=== PATIENT | female | born 1945 | race Caucasian/White ===

== ENCOUNTER 2016-10-05 21:25 | Inpatient (IN) | payer MEDICARE, MEDICAID ==
[~2016-10-05] VITALS: Ht 165.1 cm; Wt 126.2 kg
[~2016-10-05 21:25] MED LIST: AC325T PO; ACET325T38 PO; ALBU2.5V4 INH; ALBU8.5H2 IH; ALBU8.5H2 INH; AMLO1CAP2 PO; AMMO226L2 TP; ASCO500T20 PO; ASPI-586 PO; ASPI-86 PO; ASPI-892 PO; AZIT250T5 PO; BACL20TA PO; BCL10T PO; BENZ100C23 PO; BIOTIN PO; CEFD300C3 PO; CLCX200C PO; CLOB15CR3 TP; CLON0.5T3 PO; CLOT10PO TP; CRAN450T9 PO; CYCL1DRO OU; DIPH1TAB45 PO; DIPH25TA82 PO; ESOMEPRAZOLE PO; EYEL15SP TP; FERR-57 PO; FEXO-45 PO; FEXO180T PO; FLC100T1 PO; FLT05NA16; FLUC200T PO; FOLI0.8T PO; FOLI1TAB24 PO; FURO20TA PO; FURO40TA4 PO; HYDR-3812 PO; HYDR-3820 PO; HYDR-757 PO; HYOS0.3710 PO; LAC HYDRIN TP; LACT1CAP8 PO; LEVO100T PO; LEVO100T7 PO; LEVO125T6 PO; LEVO150T PO; LEVO150T6 PO; LEVO200T6 PO; LEVO750T6 PO; MAGN400T6 PO; MECL25TA56 PO; MERO1VIA3 IV; MESA1.2T PO; MESA10002 RC; METH1TAB21 PO; MICO10PO TOP; MICO142C TOP; MINE120C TP; MINE120C3 TP; MULT-24 PO; MULT-974 PO; NF-ESOM40C PO; NFBIOT1000 PO; NITR100C3 PO; NYST15CR3 TP; NYST1POW22 TOP; ONDN4T PO; OXYB10TA PO; POTA-51 PO; POTA8CAP9 PO; PRAV20TA PO; PREG200C PO; RISP0.5T2 PO; RSP.25T PO; RT-ALBUINH IH; SULF1TAB35 PO; SULF1TAB38 PO; TIZA2CAP PO; TOLN113. TP; TORS20TA2 PO; TR025C15 TP; TRIA15CR TOP; VENL37.56 PO; VENL75CA93 PO; VENL75TA2 PO; ZINC28PA TP; [UNRECOGNIZED DRUG - CODE] IV; [UNRECOGNIZED DRUG - CODE] IV; [UNRECOGNIZED DRUG - OTHER] IV
--- OUTSIDE RECORDS SUMMARY | 2016-10-05 21:30 | XMS REPORT | Continuity of Care Document ---
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 If you do not see the information that you expected, contact Release of Information in the Health Information Management department at [phone] for further assistance in locating additional records.[facility] Active Allergies and Adverse Reactions Allergen Noted [...]
[2016-10-05 22:13] LABS: BASOPHILS # (AUTO) 0.1 10^3/uL (0.0-0.1); BASOPHILS % (AUTO) 0 % (0-10); EOSINOPHILS # (AUTO) 0.1 10^3/uL (0.0-0.3); EOSINOPHILS % (AUTO) 0 % (0-10); LYMPHOCYTES # (AUTO) 1.3 X 10^3 (1.0-4.0); LYMPHOCYTES % (AUTO) 4 % (12-44); MEAN CORPUSCULAR HEMOGLOBIN 24 PG (25-34); MEAN CORPUSCULAR HGB CONC 32 G/DL (32-36); MEAN CORPUSCULAR VOLUME 75 FL (80-99); MEAN PLATELET VOLUME 11.4 FL (7.4-10.4); MONOCYTES # (AUTO) 1.6 X 10^3 (0.0-1.0); MONOCYTES % (AUTO) 5 % (0-12); NEUTROPHILS % (AUTO) 91 % (42-75); PLATELET COUNT 243 10^3/uL (130-400); RED BLOOD COUNT 4.07 10^6/uL (4.35-5.85); RED CELL DISTRIBUTION WIDTH 16.6 % (10.0-14.5)
[2016-10-05 22:18] LABS: WHITE BLOOD COUNT 34.1 10^3/uL (4.3-11.0)
[2016-10-05 22:19] LABS: INR 1.2 (0.8-1.4); PROTHROMBIN TIME PATIENT 14.4 SEC (12.2-14.7)
[2016-10-05] MEDS ORDERED: SODIUM CHLORIDE (ADD-VANTAGE) 250 ML ONE (22:25)
[2016-10-05] MEDS ORDERED: VANCOMYCIN 1 GM ADD-VANTAGE VIAL IV ONE (22:25)
[2016-10-05 22:28] LABS: ALBUMIN 4.1 G/DL (3.2-4.5); BILIRUBIN,TOTAL 0.4 MG/DL (0.1-1.0); CALCIUM 8.7 MG/DL (8.5-10.1); CREATININE SERUM 1.72 MG/DL (0.60-1.30); TOTAL PROTEIN 7.4 G/DL (6.4-8.2); hs C REACTIVE PROTEIN 13.75 MG/DL (0.00-0.50)
[2016-10-05] MEDS ORDERED: VANCOMYCIN IV ADD-VANTAGE 1,000 MG in SODIUM CHLORIDE (ADD-VANTAGE) 250 ML IV ONE ×4 (22:30)
[2016-10-05 22:31] LABS: POTASSIUM 5.6 MMOL/L (3.6-5.0)
[2016-10-05 22:38] LABS: BAND NEUTROPHILS 12 %; BASOPHILS % (MANUAL) 0 %; EOSINOPHILS % (MANUAL) 0 %; LYMPHOCYTES % (MANUAL) 5 %; MICROCYTOSIS SLIGHT; NEUTROPHILS % (MANUAL) 79 %
[2016-10-05] MEDS ORDERED: NS IV 1000 ML 1,000 ML IV ONE (22:42)
[2016-10-05] MEDS ORDERED: fentaNYL INJECTION 100 MCG/2 ML AMP IVP ONE (22:45)
[2016-10-05 23:50] LABS: BILIRUBIN,URINE NEGATIVE (NEGATIVE); KETONES,URINE NEGATIVE (NEGATIVE); LEUKOCYTE ESTERASE ,URINE 3+ (NEGATIVE); NITRITE,URINE NEGATIVE (NEGATIVE); PH,URINE 5 (5-9); PROTEIN,URINE 3+ (NEGATIVE); UROBILINOGEN,URINE NORMAL (NORMAL)
[2016-10-05 23:57] LABS: SQUAMOUS EPITHELIAL CELL,UR 0-2 /HPF; WBC,URINE TNTC /HPF
[2016-10-06] VITALS (23 sets, daily range): BP systolic 69–148; BP diastolic 32–81
[2016-10-06] MEDS ORDERED: NS IV 1000 ML 1,000 ML IV ONE (00:42)
--- NOTE | 2016-10-06 00:42 | ED General ---
General Chief Complaint: Skin/Wound Problems Stated Complaint: R LEG SWELLING Nursing Triage Note: [facility] by ems for redness, bruising, heat, and pain oted to r hip and leg. Pt reports the redness she noticed aout 5 days ago. pt denies any recent injury to r leg. Nursing Sepsis Screen: Possible Sepsis Risk Source of Information: Patient, EMS, Residential Records, Old Records History of Present Illness Time Seen by Provider: 21:40 Initial Comments This 70-year-old woman presents to the emergency room from the care home via EMS with complaints of abdominal pain, hot erythematous right thigh, and mild disorientation for about 5 days. Patient has a history of urinary tract infections and lower extremity cellulitis with multiple admissions. 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 She has mild fever of 100. Recent urine culture grew Enterococcus faecalis. Allergies and Home Medications Allergies Coded Allergies: Penicillins (Verified Allergy, Unknown, PT HAS RECEIVED ROCEPHIN & MEROPENEM W/O ISSUE, 10/05/16) butorphanol tartrate (Verified Allergy, Unknown, 10/05/16) ciprofloxacin (Verified Allergy, Unknown, 10/05/16) ciprofloxacin HCl (Verified Allergy, Unknown, 10/05/16) hydromorphone HCl (Verified Allergy, Unknown, 10/05/16) meperidine HCl (Verified Allergy, Unknown, 10/05/16) morphine (Verified Allergy, Unknown, 10/05/16) tetracycline (Verified Allergy, Unknown, 10/05/16) Home Medications Acetaminophen 325 Mg Tablet 650 MG PO Q4H PRN PRN PAIN (Reported) TAKES 2 (325MG) TABLETS Albuterol Sulfate 2.5 Mg/3 Ml Vial.neb 7Days 2.5 MG INH RTTID Prescribed by: KESHA TOTH on 07/05/16 0944 Amlodipine Besylate/Benazepril 1 Each Capsule 1 CAP PO DAILY@1800 (Reported) HOLD IF SYSTOLIC BP <90 OR PULSE <60 Ammonium Lactate 226 Gm Lotion TP DAILY (Reported) APPLY TO HANDS Ascorbic Acid 500 Mg Tablet 500 MG PO BID (Reported) Aspirin 81 Mg Tablet.dr 81 MG PO DAILY (Reported) Baclofen 10 Mg Tab 10 MG PO TID (Reported) Benzonatate 100 Mg Capsule 100 MG PO Q6H PRN PRN COUGH (Reported) Clotrimazole 10 Gm Powder TP DAILY (Reported) APPLY BETWEEN TOES Cranberry Fruit 450 Mg Tablet 450 MG PO DAILY (Reported) Cyclosporine 32 Ea [place] 1 DROP OU BID (Reported) Esomeprazole Magnesium 40 Mg Cap 40 MG PO BID (Reported) Fexofenadine HCl 60 Mg Tablet 60 MG PO DAILY (Reported) Fluticasone Propionate 16 Gm [place] 2 SPRAYS NA DAILY (Reported) Folic Acid 1 Mg Tablet 1 MG PO DAILY (Reported) Furosemide 40 Mg Tablet 40 MG PO DAILY (Reported) Hydrocodone/Acetaminophen 1 Each Tablet #30 1 TAB PO Q8H PRN PRN PAIN Prescribed by: KESHA TOTH on 07/05/16 0944 Lactobacillus Acidophilus 1 Each Capsule 1 CAP PO DAILY (Reported) Levothyroxine Sodium 150 Mcg Tablet 150 MCG PO DAILY@0500 (Reported) Magnesium Oxide 400 Mg Tablet 400 MG PO DAILY (Reported) Mesalamine 1.2 Gm Tablet.dr 1.2 GM PO DAILY (Reported) Mesalamine 1,000 Mg Supp.rect 1 SUPP RC BID (Reported) Miconazole Nitrate 10 Gm Powder TOP PRN PRN PRN CANDIDIASIS OF SKIN AND NAILS ( Reported) APPLY TO GROIN AND PERINEAL AREA Mineral Oil/Petrolatum,White 120 Gm Cream..g. TP PRN PRN PRN RASH (Reported) Multivits,Stress Formula/Zinc 1 Each Tablet 1 TAB PO DAILY (Reported) Ondansetron HCl 4 Mg Tab 4 MG PO PRN PRN PRN NAUSEA (Reported) Potassium Chloride 20 Meq Tablet.er 20 MEQ PO BID (Reported) Pravastatin Sodium 20 Mg Tablet 20 MG PO DAILY (Reported) Pregabalin 200 Mg Capsule 200 MG PO TID (Reported) Venlafaxine HCl 75 Mg Cap.er.24h 75 MG PO DAILY (Reported) Zinc Oxide 28 Gm Oint TP TID (Reported) APPLY TO COCCYX Constitutional: see HPI EENTM: no symptoms reported Respiratory: no symptoms reported Cardiovascular: no symptoms reported Gastrointestinal: see HPI Genitourinary: other (suprapubic catheter) : No Musculoskeletal: no symptoms reported Skin: no symptoms reported Psychiatric/Neurological: See HPI Hematologic/Lymphatic: No Symptoms Reported Past Nmamutl-Hilgpo-Mhgydz Hx Patient Social History Alcohol Use: Denies Use Recreational Drug Use: No Smoking Status: Never a Smoker Recent Foreign Travel: No Contact w/Someone Who Travel: No Recent Infectious Disease Expo: No Recent Hopitalizations: No Physical Abuse Screen: No Sexual Abuse: No Immunizations Up To Date Tetanus Booster (TDap): Unknown PED Vaccines UTD: No Date of Pneumonia Vaccine: Dec 09, 2011 Date of Influenza Vaccine: Aug 10, 2015 Surgeries HX Surgeries: Yes (COLOSTOMY;SUPRAPUBIC CATHETER) Surgeries: Abdominal, Bladder Surgery, Bowel Surgery Respiratory Hx Respiratory Disorders: Yes Respiratory Disorders: COPD Cardiovascular Hx Cardiac Disorders: Yes Cardiac Disorders: Chronic Edema/Swelling, High Cholesterol, Hypertension Neurological Hx Neurological Disorders: Yes (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 Physical Exam-Suspected Sepsis Physical Exam Vital Signs Vital Sign - Last 12Hours 10/05/16 10/05/16 21:25 23:10 Temp 100.0 Pulse 95 Resp 22 B/P 192/56 Pulse Ox 95 O2 Delivery Room Air O2 Flow Rate 2 Capillary Refill : Less Than 3 Seconds Blood Pressure Mean: 119 General Appearance: WD/WN Mild Distress Obese HEENT: PERRL/EOMI Normal ENT Inspection Pharynx Normal Neck: Normal Inspection Respiratory: Lungs Clear Normal Breath Sounds No Accessory Muscle Use No Respiratory Distress Cardiovascular: Regular Rate, Rhythm No Edema No Murmur Gastrointestinal: Normal Bowel Sounds Other (pulse ox is present. Abdomen feels firm. Tenderness to the lower abdomen. Suprapubic catheter intact.) Back: Normal Inspection Extremity: Other (marketed erythema, heat, and ecchymosis to the right lower extremity extending from the mid anterior martinez through the right lateral thigh.) Neurologic/Psychiatric: Alert Oriented x3 kindergartner II-XII Norm as Tested Motor Weakness (chronic weakness of the lower extremities) Skin: warm/dry ecchymosis other (erythema as above) Progress/Results/Core Measures Suspected Sepsis Recent Fever Within 48 Hours: Yes Infection Criteria Present: Suspected New Infection New/Unexplained Altered Menta: No Sepsis Screen: Possible Sepsis Risk Sepsis Diagnosis: SIRS Temperature:100.0 Pulse: 98 Respiratory Rate: 18 Laboratory Tests 10/05/16 21:40: White Blood Count 34.1*H Blood Pressure 152 /103 Mean: 119 Laboratory Tests 10/05/16 21:40: Creatinine 1.72H, INR Comment 1.2, Platelet Count 243, Total Bilirubin 0.4 Results/Orders Lab Results Laboratory Tests Test 10/05/16 21:40 10/05/16 23:43 Range/Units Activated Partial Thromboplast Time 61 H 24-35 SEC Alanine Aminotransferase (ALT/SGPT) 21 0-55 U/L Albumin 4.1 3.2-4.5 G/DL Alkaline Phosphatase 131 40-136 U/L Anion Gap 13 5-14 MMOL/L Aspartate Amino Transf (AST/SGOT) 25 5-34 U/L BUN/Creatinine Ratio 23 Band Neutrophils 12 % Basophils # (Auto) 0.1 0.0-0.1 10^3/uL Basophils % (Manual) 0 % Basophils (%) (Auto) 0 0-10 % Blood Urea Nitrogen 39 H 7-18 MG/DL C-Reactive Protein High Sensitivity 13.75 H 0.00-0.50 MG/DL Calcium Level 8.7 8.5-10.1 MG/DL Carbon Dioxide Level 20 L 21-32 MMOL/L Chloride Level 100 98-107 MMOL/L Creatinine 1.72 H 0.60-1.30 MG/DL Eosinophils # (Auto) 0.1 0.0-0.3 10^3/uL Eosinophils % (Manual) 0 % Eosinophils (%) (Auto) 0 0-10 % Estimat Glomerular Filtration Rate 29 Glucose Level 139 H 70-105 MG/DL Hematocrit 31 L 35-52 % Hemoglobin 9.7 L 11.5-16.0 G/DL INR Comment 1.2 0.8-1.4 Lactic Acid Level 1.5 0.5-2.0 MMOL/L Lymphocytes # (Auto) 1.3 1.0-4.0 X 10^3 Lymphocytes % (Manual) 5 % Lymphocytes (%) (Auto) 4 L 12-44 % Mean Corpuscular Hemoglobin 24 L 25-34 PG Mean Corpuscular Hemoglobin Concent 32 32-36 G/DL Mean Corpuscular Volume 75 L 80-99 FL Mean Platelet Volume 11.4 H 7.4-10.4 FL Microcytosis SLIGHT Monocytes # (Auto) 1.6 H 0.0-1.0 X 10^3 Monocytes % (Manual) 4 % Monocytes (%) (Auto) 5 0-12 % Neutrophils # (Auto) 31.0 H 1.8-7.8 X 10^3 Neutrophils % (Manual) 79 % Neutrophils (%) (Auto) 91 H 42-75 % Platelet Count 243 130-400 10^3/uL Potassium Level 5.6 H 3.6-5.0 MMOL/L Prothrombin Time 14.4 12.2-14.7 SEC Red Blood Count 4.07 L 4.35-5.85 10^6/uL Red Cell Distribution Width 16.6 H 10.0-14.5 % Sodium Level 133 L 135-145 MMOL/L Total Bilirubin 0.4 0.1-1.0 MG/DL Total Protein 7.4 6.4-8.2 G/DL White Blood Count 34.1 *H 4.3-11.0 10^3/uL Urine Bacteria LARGE H /HPF Urine Bilirubin NEGATIVE NEGATIVE Urine Casts NONE /LPF Urine Clarity VERY CLOUDY H Urine Color YELLOW Urine Crystals NONE /LPF Urine Culture Indicated YES Urine Glucose (UA) NEGATIVE NEGATIVE Urine Ketones NEGATIVE NEGATIVE Urine Leukocyte Esterase 3+ H NEGATIVE Urine Mucus MODERATE H /LPF Urine Nitrite NEGATIVE NEGATIVE Urine Protein 3+ H NEGATIVE Urine RBC 50-100 H /HPF Urine RBC (Auto) 5+ H NEGATIVE Urine Specific [place] 1.020 1.016-1.022 Urine Squamous Epithelial Cells 0-2 /HPF Urine Urobilinogen NORMAL NORMAL MG/DL Urine WBC TNTC H /HPF Urine pH 5 5-9 My Orders Orders-MADHAV EDWARDS MD Cbc With Automated Diff (10/05/16 22:04) Comprehensive Metabolic Panel (10/05/16 22:04) Lactic Acid Analyzer (10/05/16 22:04) Blood Culture (10/05/16 22:04) Sputum Culture (10/05/16 22:04) Ua Culture If Indicated (10/05/16 22:04) Protime With Inr (10/05/16 22:04) Partial Thromboplastin Time (10/05/16 22:04) Chest 1 View, Ap/Pa Only (10/05/16 22:04) O2 (10/05/16 22:04) Saline Lock/Iv-Start (10/05/16 22:04) Saline Lock/Iv-Start (10/05/16 22:04) Vital Signs Adult Sepsis Patie Q1HR (10/05/16 22:04) Hs C Reactive Protein (10/05/16 22:04) Manual Differential (10/05/16 21:40) Vancomycin Iv Add-[place] (Vancomycin Iv (10/05/16 22:30) Vancomycin Iv Add-[place] (Vancomycin Iv (10/05/16 22:30) Vancomycin Iv Add-[place] (Vancomycin Iv (10/05/16 22:25) Sodium Chloride (Add-[place]) (Ns (Add-V (10/05/16 22:25) Ns Iv 1000 Ml (Sodium Chloride 0.9%) (10/05/16 22:42) Ct Chest/Abdomen/Pelvis Wo (10/05/16 22:43) Fentanyl Injection (Sublimaze Injection (10/05/16 22:45) Urine Culture (10/05/16 23:43) Ns Iv 1000 Ml (Sodium Chloride 0.9%) (10/06/16 00:42) Medications Given in ED Current Medications Medications Dose Ordered Sig/Briana Route Start Time Stop Time Status Last Admin Dose Admin Fentanyl Citrate 25 mcg ONCE ONCE IVP 10/05/16 22:45 10/05/16 22:46 DC 10/05/16 22:59 25 MCG Sodium Chloride 1,000 ml @ 0 mls/hr Q0M ONCE IV 10/05/16 22:42 10/05/16 22:43 DC 10/05/16 22:46 0 MLS/HR Vancomycin HCl 1000 mg/Sodium Chloride 250 ml @ 250 mls/hr ONCE ONCE IV 10/05/16 22:30 10/05/16 23:29 DC 10/05/16 22:37 250 MLS/HR Vital Signs/I&O Vital Sign - Last 12Hours 10/05/16 10/05/16 10/05/16 10/05/16 21:25 21:43 21:45 22:15 Temp 100.0 100.0 100.0 100.0 Pulse 95 98 99 97 Resp 18 22 22 B/P 192/56 152/103 124/81 144/100 Pulse Ox 95 95 95 95 O2 Delivery Room Air Room Air Room Air Room Air 10/05/16 10/05/16 10/05/16 10/05/16 22:45 23:10 23:15 23:45 Temp 100.0 100.0 100.0 Pulse 95 99 99 Resp 16 B/P 111/77 111/77 106/98 Pulse Ox 89 95 94 90 O2 Delivery Room Air Nasal Cannula Nasal Cannula Nasal Cannula O2 Flow Rate 2 2 2 10/06/16 10/06/16 10/06/16 10/06/16 00:15 00:45 01:24 01:30 Temp 100.0 100.0 100.0 102.3 Pulse 106 109 108 103 Resp B/P 105/88 130/44 148/73 Pulse Ox 98 98 99 98 O2 Delivery Nasal Cannula Nasal Cannula Nasal Cannula O2 Flow Rate 2 2 2 2.00 10/06/16 10/06/16 10/06/16 10/06/16 02:00 02:00 02:00 02:00 Pulse 98 98 Resp 11 B/P 116/64 Pulse Ox 99 98 99 O2 Delivery Nasal Cannula Nasal Cannula O2 Flow Rate 2.00 2.00 10/06/16 10/06/16 02:30 03:00 Pulse 94 Resp 13 B/P 100/71 Pulse Ox 96 O2 Delivery Nasal Cannula Nasal Cannula O2 Flow Rate 2.00 2.00 Capillary Refill : Less Than 3 Seconds Blood Pressure Mean: 119 Progress Note : Progress Note Patient received fentanyl for treatment of her pain. She was found to have multiple possible sources of infection and sepsis including urinary tract infection, cellulitis of the right lower extremity, and right lower lobe pneumonia. Antibiotic therapy was initiated with vancomycin. Broad-spectrum antibiotic coverage selection had to be altered due to allergies. Clindamycin was added for possible aspiration pneumonia. Cefepime was admitted for further coverage of cellulitis, pneumonia and UTI. She received 2 liters of IV fluids. Diagnostic Imaging Diagonstic Imaging: Xray Plain Films/CT/US/NM/MRI: chest Comments Chest x-ray viewed by me. Report not available. Exam is obscured by body habitus. There is questionable lower lung infiltrates. Diagonstic Imaging: CT Plain Films/CT/US/NM/MRI: abdomen, pelvis Comments CT abdomen and pelvis viewed by me and CT report reviewed. No acute abnormalities found to explain her pain. Departure Communication Time/Spoke to Admitting Phy: 00:30 Impression Impression: Primary Impression: Sepsis Qualified Code: A41.9 - Sepsis, unspecified organism Additional Impressions: Right lower lobe pneumonia Qualified Code: J69.0 - Pneumonitis due to inhalation of food and vomit Urinary tract infection Qualified Code: N39.0 - Urinary tract infection, site not specified Cellulitis of right leg Abdominal pain Qualified Code: R10.9 - Unspecified abdominal pain Acute renal failure Qualified Code: N17.9 - Acute kidney failure, unspecified Hyperkalemia Disposition: 01 HOME, SELF-CARE Condition: Improved Decision to Admit Reason: Admit from ER (General) Decision to Admit/Date: Oct 06, 2016 Departure-Patient Inst. Referrals: NO,LOCAL PHYSICIAN (PCP/Family) Primary Care Physician MADHAV EDWARDS MD Oct 06, 2016 00:41
[2016-10-06] MEDS ORDERED: NORMAL SALINE (BAXTER MINI) 100 ML IV ONE ×5 (01:46→23:59)
[2016-10-06] MEDS ORDERED: MEROPENEM 500 MG VIAL (MERREM) IV ONE ×5 (01:46→23:58)
[2016-10-06] MEDS: NS IV 1000 ML 1,000 ML IV SCH ×5 (01:47→22:33)
[2016-10-06] MEDS: MEROPENEM 500 MG in NORMAL SALINE (BAXTER MINI) 100 ML IV SCH ×4 (01:54→17:13)
[2016-10-06] MEDS: CLINDAMYCIN 900 MG/50 ML IVPB 50 ML IV SCH ×4 (01:54→22:32)
[2016-10-06] MEDS ORDERED: ACETAMINOPHEN 325 MG TABLET/CAPLET (TYLENOL) ONE (03:38)
[2016-10-06] MEDS ORDERED: ACETAMINOPHEN 500 MG TAB (TYLENOL) PO PRN (04:00)
[2016-10-06] MEDS ORDERED: HYDROcodone/APAP 10 MG/325 MG (LORTAB) TAB PO ONE (04:00)
[2016-10-06] MEDS ORDERED: ACETAMINOPHEN 500 MG TAB (TYLENOL) PO ONE (04:00)
[2016-10-06] MEDS ORDERED: HYDROcodone/APAP 10 MG/325 MG (LORTAB) TAB PO PRN (04:00)
[2016-10-06] MEDS ORDERED: HYDROcodone/APAP 5 MG/325 MG (LORTAB) TAB PO PRN ×2 (04:15→04:30)
[2016-10-06] MEDS ORDERED: fentaNYL INJECTION 100 MCG/2 ML AMP IV PRN (04:15)
[2016-10-06] MEDS ORDERED: fentaNYL INJECTION 100 MCG/2 ML AMP IVP PRN (04:30)
[2016-10-06] MEDS ORDERED: HYDROcodone/APAP 5 MG/325 MG (LORTAB) TAB PO ONE (04:30)
[2016-10-06 04:40] LABS: BASOPHILS # (AUTO) 0.1 10^3/uL (0.0-0.1); BASOPHILS % (AUTO) 0 % (0-10); EOSINOPHILS % (AUTO) 0 % (0-10); LYMPHOCYTES # (AUTO) 1.3 X 10^3 (1.0-4.0); LYMPHOCYTES % (AUTO) 4 % (12-44); MEAN CORPUSCULAR HEMOGLOBIN 24 PG (25-34); MEAN CORPUSCULAR HGB CONC 32 G/DL (32-36); MEAN CORPUSCULAR VOLUME 75 FL (80-99); MONOCYTES # (AUTO) 1.1 X 10^3 (0.0-1.0); MONOCYTES % (AUTO) 4 % (0-12); NEUTROPHILS # (AUTO) 28.4 X 10^3 (1.8-7.8); NEUTROPHILS % (AUTO) 92 % (42-75); PLATELET COUNT 213 10^3/uL (130-400); RED BLOOD COUNT 3.74 10^6/uL (4.35-5.85); RED CELL DISTRIBUTION WIDTH 16.5 % (10.0-14.5)
[2016-10-06 05:02] LABS: CALCIUM 8.2 MG/DL (8.5-10.1); CREATININE SERUM 1.59 MG/DL (0.60-1.30); MAGNESIUM 1.8 MG/DL (1.8-2.4); PHOSPHORUS 3.8 MG/DL (2.3-4.7)
[2016-10-06 05:04] LABS: POTASSIUM 5.6 MMOL/L (3.6-5.0)
[2016-10-06 05:35] LABS: WHITE BLOOD COUNT 30.8 10^3/uL (4.3-11.0)
[2016-10-06] MEDS: NS IV 500 ML 500 ML IV SCH ×17 (05:58→23:43)
--- NOTE | 2016-10-06 06:32 | Pulmonary Consultation ---
History of Present Illness History of Present Illness Date of Consultation 10/06/16 06:23 Date of Admission History of Present Illness 70yo with hx of paralysis from CVA, and multiple hospitalizations secondary to cellulitis and UTIs presented via EMS secondary to abdominal pain, worsening cellulitis, and confusion. Pt is on Merrem, vanco, and clindamycin. She became more hypotensive after receiving [place]. Pt has had a total of 3500 of IVF. UO has been 90 cc/hr. I am consulted for ICU management. Allergies and Home Medications Allergies Coded Allergies: Penicillins (Verified Allergy, Unknown, PT HAS RECEIVED ROCEPHIN & MEROPENEM W/O ISSUE, 10/05/16) butorphanol tartrate (Verified Allergy, Unknown, 10/05/16) ciprofloxacin (Verified Allergy, Unknown, 10/05/16) ciprofloxacin HCl (Verified Allergy, Unknown, 10/05/16) hydromorphone HCl (Verified Allergy, Unknown, 10/05/16) meperidine HCl (Verified Allergy, Unknown, 10/05/16) morphine (Verified Allergy, Unknown, 10/05/16) tetracycline (Verified Allergy, Unknown, 10/05/16) Home Medications Acetaminophen 325 Mg Tablet 650 MG PO Q4H PRN PRN PAIN (Reported) TAKES 2 (325MG) TABLETS Amlodipine Besylate/Benazepril 1 Each Capsule 1 CAP PO 1800 (Reported) HOLD IF SYSTOLIC BP <90 OR PULSE <60 Aspirin 81 Mg Tablet.dr 81 MG PO DAILY (Reported) Baclofen 10 Mg Tab 10 MG PO TID (Reported) Benzonatate 100 Mg Capsule 100 MG PO Q6H PRN PRN COUGH (Reported) Cranberry Fruit 450 Mg Tablet 450 MG PO DAILY (Reported) Cyclosporine 1 Each Droperette 1 DROP OU BID (Reported) Esomeprazole Magnesium 40 Mg Cap 40 MG PO BID (Reported) Fexofenadine HCl 60 Mg Tablet 60 MG PO DAILY (Reported) Fluconazole 150 Mg Tablet 150 MG PO Fr (Reported) 4 WEEK SUPPLY START DATE 10-01-16 END DATE 10-29-16 Furosemide 40 Mg Tablet 40 MG PO DAILY (Reported) Hydrocodone/Acetaminophen 1 Each Tablet 1 TAB PO Q8H PRN PRN PAIN (Reported) Ketoconazole 15 Gm Cream..g. 21Days TP BID (Reported) START DATE 09-30-16 END DATE 10-21-16 Lactobacillus Acidophilus 1 Each Capsule 1 CAP PO DAILY (Reported) Levothyroxine Sodium 150 Mcg Tablet 150 MCG PO 0500 (Reported) Magnesium Oxide 400 Mg Tablet 400 MG PO DAILY (Reported) Mesalamine 1.2 Gm Tablet.dr 1.2 GM PO DAILY (Reported) Mesalamine 1,000 Mg Supp.rect 1 SUPP RC BID (Reported) Miconazole Nitrate 10 Gm Powder TOP PRN PRN PRN CANDIDIASIS OF SKIN AND NAILS ( Reported) APPLY TO GROIN AND PERINEAL AREA Mineral Oil/Petrolatum,White 120 Gm Cream..g. TP PRN PRN PRN RASH (Reported) Multivits,Stress Formula/Zinc 1 Each Tablet 1 TAB PO DAILY (Reported) Ondansetron HCl 4 Mg Tab 4 MG PO PRN PRN PRN NAUSEA (Reported) Potassium Chloride 20 Meq Tablet.er 20 MEQ PO DAILY (Reported) Pravastatin Sodium 20 Mg Tablet 20 MG PO DAILY (Reported) Pregabalin 200 Mg Capsule 200 MG PO TID (Reported) Venlafaxine HCl 75 Mg Cap.er.24h 75 MG PO DAILY (Reported) Zinc Oxide 28 Gm Oint TP TID (Reported) APPLY TO COCCYX Past Zekayvi-Eakcso-Uwrtqb Hx Patient Social History Alcohol Use: Denies Use Recreational Drug Use: No Smoking Status: Never a Smoker Recent Foreign Travel: No Contact w/Someone Who Travel: No Recent Infectious Disease Expo: No Recent Hopitalizations: No Physical Abuse Screen: No Sexual Abuse: No Immunizations Up To Date Tetanus Booster (TDap): Unknown PED Vaccines UTD: No Date of Pneumonia Vaccine: Dec 09, 2011 Date of Influenza Vaccine: Aug 10, 2015 Seasonal Allergies Seasonal Allergies: No Surgeries HX Surgeries: Yes (COLOSTOMY;SUPRAPUBIC CATHETER) Surgeries: Abdominal, Bladder Surgery, Bowel Surgery Respiratory Hx Respiratory Disorders: Yes Respiratory Disorders: Asthma, Pneumonia, COPD Cardiovascular Hx Cardiac Disorders: Yes Cardiac Disorders: Chronic Edema/Swelling, High Cholesterol, Hypertension Neurological Hx Neurological Disorders: Yes (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"- GENERALIZED WEAKNESS) Endocrine Hx Endocrine Disorders: Yes (MYXEDEMA COMA) Endocrine Disorders: Hypothyroidsim HEENT HX ENT Disorders: No Loss of Vision: Denies Hearing Impairment: Denies Cancer Hx Cancer: Yes Cancer: Breast Psychosocial Hx Psychiatric Problems: Yes (PSYCHOSIS) Behavioral Health Disorders: Depression Integumentary HX Skin/Integumentary Disorder: Yes (athletes foot bilat feet) Skin/Integumentary Disorders: Recent Skin Changes Blood Transfusions Hx Blood Disorders: Yes (ANEMIA) Adverse Reaction to a Blood Tr: No Family Medical History Family Medial History: Patient reports no known family medical history. Review of Systems Constitutional: : Chills: Fever: Malaise: Sweats: Weakness Eyes: No: Conjunctivae inflammation, Eyelid inflammation, Other, Pain, Redness , Vision change ENT: No: Ear discharge, Ear pain, Mouth pain, Mouth swelling, Nose congestion, Nose discharge, Nose pain, Other, Throat pain, Throat swelling Respiratory: : Cough: Dry: SOB with excertion: Shortness of breath Cardiovascular: : Paroxysmal Noc. DyspneaNo: Chest Pain, Edema, Lt Headedness, Orthopnea, Other, Palpitations Gastrointestinal: No: Abdominal Pain, Constipation, Diarrhea, Hematochezia, Melena, Nausea, Other, Vomiting Genitourinary: No Dysuria, No Frequency, No Incontinence, No Hematuria, No Retention, No Other Musculoskeletal: : back pain: leg pain Skin: : Bruising: Lesions: Rash Neurological: : Confusion: Weakness Sepsis Event Evaluation Sepsis Stage: Sepsis Possible Source: Skin/Soft Tissue Exam Exam Vital Signs Date Time Temp Pulse Resp B/P Pulse Ox O2 Delivery O2 Flow Rate FiO2 10/06/16 06:00 90 9 85/44 93 Nasal Cannula 2.00 10/06/16 05:00 93 11 69/32 93 Nasal Cannula 2.00 10/06/16 04:50 100 Nasal Cannula 2.00 10/06/16 04:00 101.3 105 24 115/81 100 Nasal Cannula 2.00 10/06/16 03:00 94 13 100/71 96 Nasal Cannula 2.00 10/06/16 02:30 Nasal Cannula 2.00 10/06/16 02:00 99 10/06/16 02:00 98 11 116/64 98 Nasal Cannula 2.00 10/06/16 02:00 98 10/06/16 02:00 99 Nasal Cannula 2.00 10/06/16 01:30 102.3 103 22 148/73 98 Nasal Cannula 2.00 10/06/16 01:24 100.0 108 18 99 2 10/06/16 00:45 100.0 109 18 130/44 98 Nasal Cannula 2 10/06/16 00:15 100.0 106 16 105/88 98 Nasal Cannula 2 10/05/16 23:45 100.0 99 16 106/98 90 Nasal Cannula 2 10/05/16 23:15 100.0 99 16 111/77 94 Nasal Cannula 2 10/05/16 23:10 95 Nasal Cannula 2 10/05/16 22:45 100.0 95 16 111/77 89 Room Air 10/05/16 22:15 100.0 97 22 144/100 95 Room Air 10/05/16 21:45 100.0 99 22 124/81 95 Room Air 10/05/16 21:43 100.0 98 18 152/103 95 Room Air 10/05/16 21:25 100.0 95 22 192/56 95 Room Air I & O 10/06/16 07:00 Intake Total 2550 ml Output Total 480 ml Balance 2070 ml General Appearance: WD/WN Mild Distress Obese HEENT: PERRL/EOMI Normal ENT Inspection Pharynx Normal Neck: Normal Inspection Respiratory: Lungs Clear Normal Breath Sounds No Accessory Muscle Use No Respiratory Distress Cardiovascular: Regular Rate, Rhythm No Edema No Murmur Capillary Refill: Less Than 3 Seconds Extremity: Other (marketed erythema, heat, and ecchymosis to the right lower extremity extending from the mid anterior martinez through the right lateral thigh.) Neurologic/Psychiatric: Alert Oriented x3 supervisor type bar and segment II-XII Norm as Tested Motor Weakness (chronic weakness of the lower extremities) Skin: Normal Color Warm/Dry Lymphatic: No Adenopathy Results Lab Laboratory Tests 10/05/16 21:40 10/06/16 04:30 Assessment/Plan Assessment/Plan -Sepsis secondary to cellulitis and UTI -Continue merrem, vanco, and clinda for now -stanford cultures -IVF Hyperkalemia - mild -will give Kayexalate Hypotension - improved -monitor, IVF chronic renal failure -monitor -hx of paralysis s/p CVA and multiple infections -Obesity - Clinical Quality Measures DVT/VTE Risk/Contraindication: Risk Factor Score Per Nursin RFS Level Per Nursing on Admit: 4+=Very High RON BATES DO Oct 06, 2016 06:32 RFS Level Per Nursing on Admit: 4+=Very High RON BATES DO Oct 06, 2016 06:32
[2016-10-06] MEDS ORDERED: NS IV 1000 ML 1,000 ML IV SCH (06:45)
[2016-10-06] MEDS ORDERED: SOD POLYSTERENE 15 GM/60 ML (KAYEXALATE) UNIT DOSE PO NR (06:45)
--- NOTE | 2016-10-06 07:10 | Diagnostic Imaging Report ---
PROCEDURE: CT chest, abdomen, and pelvis without contrast. TECHNIQUE: Multiple contiguous axial images were obtained through the chest, abdomen, and pelvis without the use of intravenous contrast. INDICATION: Bruising and pain to right hip. Comparison with CT abdomen and pelvis from 05/23/2016. FINDINGS: CT chest without: There is mild infiltrate medial basilar segment of the right lower lobe. Lungs are otherwise clear. Heart is not enlarged. There is a Port-A-Cath present on the right with line in good position. Heart is not enlarged. No mediastinal or hilar adenopathy of pathologic size. No pleural effusions or pericardial effusion. IMPRESSION: Infiltrate medial basilar segment right lower lobe. CT abdomen and pelvis: There is a small hypodense lesion in the left lobe measuring 1.5 cm. Liver otherwise is normal. Gallbladder is normal. Bile ducts are normal. The pancreas is atrophic. Spleen is normal. Adrenal glands are not enlarged. Kidneys show no evidence of obstruction or calculi. Renal outlines are smooth. The stomach and small bowel appear normal. There is ostomy in the left lower quadrant. There is moderate amount of retained stool in the ascending and transverse colon. Aorta is calcified without evidence of aneurysm. There is no free air or free fluid. No intra-abdominal masses. Bone windows show hips to be in normal articulation with moderate degenerative changes. No fractures are demonstrated. The surrounding soft tissues along the right hip show no changes to indicate inflammatory changes or hematoma. Surgical changes are seen within the lower lumbar spine with fusion present. Suprapubic catheter is present. Bladder is decompressed. IMPRESSION: 1. No evidence of hip fractures or inflammatory changes surrounding the right hip. 2. Moderate amount of retained stool in the colon suggesting some constipation. 3. Suprapubic catheter in good position. 4. Small hypodense lesion in the left lobe of the liver likely representing cyst. Dictated by: Dictated on workstation # [id number]
[2016-10-06] MEDS ORDERED: FLU TRIvalent (5 YOA+) 2016-17 (AFLURIA) 0.5 ML IM ONE (07:30)
--- NOTE | 2016-10-06 07:37 | Diagnostic Imaging Report ---
INDICATION: Febrile. Comparison with 09/15/2016. Findings: Study is limited due to marked obesity and portable technique. No infiltrates are demonstrated. Heart is enlarged. No evidence of pulmonary edema. No pneumothorax or pleural effusion. Right central line remains unchanged in position. IMPRESSION: No acute changes noted when compared with previous exam. Dictated by: Dictated on workstation # [id number]
[2016-10-06] MEDS: RT-ALBUTEROL SULF 2.5 MG/3 ML PRE-MIX VIAL INH SCH ×3 (07:43→20:10)
[2016-10-06] MEDS ORDERED: CYCL1DRO OU (07:57)
[2016-10-06] MEDS ORDERED: HYDR-3812 PO (07:57)
[2016-10-06] MEDS ORDERED: FLUC150T2 PO (07:57)
[2016-10-06] MEDS ORDERED: KETO15CR TP (07:57)
--- NOTE | 2016-10-06 08:18 | Diagnostic Imaging Report ---
Portable upright radiograph of the chest. INDICATION: Sepsis. COMPARISON: 10/05/16. FINDINGS: There is unchanged mild infiltrate or atelectasis in the medial aspect of the right lung base. Density over the left lung base was not associated with significant infiltrate on CT scan and is likely superimposition artifact on this portable radiograph. The heart size is at the upper limits of normal. No effusion or pneumothorax. Infusion port is again seen with the tip at the proximal right atrium level. IMPRESSION: Stable mild medial right lung base infiltrate or atelectasis. Dictated by: Dictated on workstation # [id number]
[2016-10-06] MEDS ORDERED: ACETAMINOPHEN 325 MG TABLET/CAPLET (TYLENOL) PO PRN (09:30)
[2016-10-06] MEDS ORDERED: CATHETER FLUSH 10 ML SYR IV PRN (09:30)
--- NOTE | 2016-10-06 09:55 | History & Physical-Hospitalist ---
HPI History of Present Illness: HPI/Chief Complaint CC: Sepsis with fever HPI: This is a 70yoWF pt known to me from multiple admissions for sepsis due to medical issues following vertebral artery CVA with residual paralysis and suprapubic cath causing multiple UTI's and pneumonias. States she had a fever the past 3 days and increased pain right flank. Dr. Perez Review: Dr. Perez states that pt is on multiple antibiotics, and has significant cellulitis. Lactic acid is likely rising so will recheck. Pt received fluid bolus. Patient Interview: Pt was very sleepy during visit. No details obtained. Pt states that she is receiving pain medication. Physical exam was stable. Scribed by Charlie Steen under the direct supervision of Dr. Toth. Source: patient, RN/MD Date Seen 10/06/16 Attending Physician Camden Falk MD PCP No,Local Physician Referring Physician Date of Admission Oct 06, 2016 at 00:39 Home Medications & Allergies Home Medications Reviewed patient Home Medication Reconciliation Form Allergies Coded Allergies: Penicillins (Verified Allergy, Unknown, PT HAS RECEIVED ROCEPHIN & MEROPENEM W/O ISSUE, 10/05/16) butorphanol tartrate (Verified Allergy, Unknown, 10/05/16) ciprofloxacin (Verified Allergy, Unknown, 10/05/16) ciprofloxacin HCl (Verified Allergy, Unknown, 10/05/16) hydromorphone HCl (Verified Allergy, Unknown, 10/05/16) meperidine HCl (Verified Allergy, Unknown, 10/05/16) morphine (Verified Allergy, Unknown, 10/05/16) tetracycline (Verified Allergy, Unknown, 10/05/16) Past Dpkusdm-Ouoazn-Rlrjrh Hx Patient Social History Marrital Status: Employed/Student: retired Alcohol Use: Denies Use Recreational Drug Use: No Smoking Status: Never a Smoker Physical Abuse Screen: No Sexual Abuse: No Recent Foreign Travel: No Contact w/other who traveled: No Recent Hopitalizations: No Recent Infectious Disease Expo: No Immunizations Up To Date Tetanus Booster (TDap): Unknown Date of Pneumonia Vaccine: Dec 09, 2011 Date of Influenza Vaccine: Aug 10, 2015 Seasonal Allergies Seasonal Allergies: No Surgeries HX Surgeries: Yes (COLOSTOMY;SUPRAPUBIC CATHETER) Surgeries: Abdominal, Bladder Surgery, Bowel Surgery Respiratory Hx Respiratory Disorders: Yes Respiratory Disorders: Asthma, Pneumonia Cardiovascular Hx Cardiovascular Disorders: Yes Cardiac Disorders: Chronic Edema/Swelling, High Cholesterol, Hypertension Neurological Hx Neurological Disorders: Yes (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"- GENERALIZED WEAKNESS) Endocrine Hx Endocrine Disorders: Yes (MYXEDEMA COMA) Endocrine Disorders: Hypothyroidsim HEENT HX ENT Disorders: No Loss of Vision: Denies Hearing Impairment: Denies Cancer Hx Cancer: Yes Cancer: Breast Psychosocial Hx Psychiatric Problems: Yes (PSYCHOSIS) Behavioral Health Disorders: Depression Integumentary HX Skin/Integumentary Disorder: Yes (athletes foot bilat feet) Skin/Integumentary Disorders: Recent Skin Changes Blood Transfusions Hx Blood Disorders: Yes (ANEMIA) Adverse Reaction to a Blood Tr: No Family Medical History Family Hx: Patient reports no known family medical history. Review of Systems Constitutional: see HPI chills dizziness fever malaise EENTM: no symptoms reported Respiratory: cough Cardiovascular: no symptoms reported Gastrointestinal: nausea Genitourinary: decreased output Musculoskeletal: back pain Skin: no symptoms reported Psychiatric/Neurological: Depressed All Other Systems Reviewed Negative Unless Noted: Yes Physical Exam Physical Exam Vital Signs Vital Sign - Last 12Hours 10/05/16 10/05/16 21:25 23:10 Temp 100.0 Pulse 95 Resp 22 B/P 192/56 Pulse Ox 95 O2 Delivery Room Air O2 Flow Rate 2 Capillary Refill : Less Than 3 Seconds General Appearance: No Apparent Distress WD/WN Chronically ill Obese Other ( Chronically ill more declined since last seen) Eyes: Bilateral Eye Normal Inspection, Bilateral Eye PERRL HEENT: PERRL/EOMI Normal ENT Inspection Pharynx Normal Neck: Full Range of Motion Normal Inspection Non Tender Supple Carotid Bruit Respiratory: Chest Non Tender Lungs Clear Normal Breath Sounds No Accessory Muscle Use No Respiratory Distress Cardiovascular: Regular Rate, Rhythm No Edema No Gallop No JVD No Murmur Normal Peripheral Pulses Gastrointestinal: Normal Bowel Sounds No Organomegaly No Pulsatile Mass Non Tender Soft Back: Normal Inspection No CVA Tenderness No Vertebral Tenderness Extremity: Normal Capillary Refill Normal Inspection Normal Range of Motion Non Tender No Calf Tenderness No Pedal Edema Neurologic/Psychiatric: Alert Oriented x3 No Motor/Sensory Deficits Normal Mood/Affect Skin: Normal Color Warm/Dry Other (right flank erythema w/increased warmth) Lymphatic: No Adenopathy Results Results/Procedures Lab Laboratory Tests 10/05/16 21:40 10/06/16 04:30 Assessment/Plan Admission Diagnosis Assessment: Sepsis due to right flank cellulitis with leukocytosis and fever and hypotension , placed on Vanc, Radha, Clinda empirically 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
[2016-10-06] MEDS ORDERED: SODIUM CHLORIDE (ADD-VANTAGE) 250 ML ONE ×2 (11:07→22:09)
[2016-10-06] MEDS ORDERED: VANCOMYCIN 1 GM ADD-VANTAGE VIAL IV ONE ×2 (11:07→22:08)
[2016-10-06] MEDS: VANCOMYCIN 1 GM/NS 250 ML IVPB IV SCH ×4 (11:17→22:33)
[2016-10-06] MEDS: HYDROcodone/APAP 5 MG/325 MG (LORTAB) TAB PO PRN ×3 (11:23→23:01)
[2016-10-07] VITALS (23 sets, daily range): BP systolic 79–141; BP diastolic 42–66
[2016-10-07] MEDS: MEROPENEM 500 MG in NORMAL SALINE (BAXTER MINI) 100 ML IV SCH ×3 (00:07→12:35)
[2016-10-07] MEDS: NS IV 500 ML 500 ML IV SCH ×13 (00:45→12:48)
[2016-10-07] MEDS ORDERED: MEROPENEM 500 MG VIAL (MERREM) IV ONE ×3 (05:18→23:55)
[2016-10-07] MEDS ORDERED: NORMAL SALINE (BAXTER MINI) 100 ML IV ONE ×3 (05:18→23:56)
[2016-10-07] MEDS: NS IV 1000 ML 1,000 ML IV SCH ×2 (05:22→15:22)
[2016-10-07] MEDS: CLINDAMYCIN 900 MG/50 ML IVPB 50 ML IV SCH (05:27)
[2016-10-07] MEDS: HYDROcodone/APAP 5 MG/325 MG (LORTAB) TAB PO PRN ×3 (05:27→22:29)
[2016-10-07] MEDS: RT-ALBUTEROL SULF 2.5 MG/3 ML PRE-MIX VIAL INH SCH ×3 (06:26→21:00)
[2016-10-07 06:57] LABS: BASOPHILS # (AUTO) 0.1 10^3/uL (0.0-0.1); BASOPHILS % (AUTO) 0 % (0-10); EOSINOPHILS # (AUTO) 0.6 10^3/uL (0.0-0.3); EOSINOPHILS % (AUTO) 3 % (0-10); LYMPHOCYTES # (AUTO) 1.7 X 10^3 (1.0-4.0); LYMPHOCYTES % (AUTO) 9 % (12-44); MEAN CORPUSCULAR HEMOGLOBIN 23 PG (25-34); MEAN CORPUSCULAR HGB CONC 31 G/DL (32-36); MEAN CORPUSCULAR VOLUME 76 FL (80-99); MONOCYTES # (AUTO) 1.3 X 10^3 (0.0-1.0); MONOCYTES % (AUTO) 7 % (0-12); NEUTROPHILS # (AUTO) 14.5 X 10^3 (1.8-7.8); NEUTROPHILS % (AUTO) 80 % (42-75); PLATELET COUNT 155 10^3/uL (130-400); RED BLOOD COUNT 3.12 10^6/uL (4.35-5.85); RED CELL DISTRIBUTION WIDTH 16.6 % (10.0-14.5); WHITE BLOOD COUNT 18.1 10^3/uL (4.3-11.0)
[2016-10-07 07:25] LABS: CALCIUM 7.7 MG/DL (8.5-10.1); CREATININE SERUM 1.24 MG/DL (0.60-1.30); MAGNESIUM 1.6 MG/DL (1.8-2.4); PHOSPHORUS 5.1 MG/DL (2.3-4.7); POTASSIUM 4.2 MMOL/L (3.6-5.0)
--- NOTE | 2016-10-07 07:45 | Pulmonary Progress Note ---
Subjective Subjective/Events-last exam Pt appears to be improving. No complications noted. Exam Exam Vital Signs Date Time Temp Pulse Resp B/P Pulse Ox O2 Delivery O2 Flow Rate FiO2 10/07/16 06:26 95 Nasal Cannula 2.00 10/07/16 06:00 93 10 92/51 95 Nasal Cannula 2.00 10/07/16 05:00 92 15 105/50 97 Nasal Cannula 2.00 10/07/16 04:10 100 Nasal Cannula 2.00 10/07/16 04:00 99.9 86 12 96/53 100 Nasal Cannula 2.00 10/07/16 03:00 87 10 79/42 99 Nasal Cannula 2.00 10/07/16 02:00 89 11 102/53 99 Nasal Cannula 2.00 10/07/16 01:00 105 12 106/54 100 Nasal Cannula 2.00 10/07/16 01:00 101 10/07/16 00:00 100 Nasal Cannula 2.00 10/07/16 00:00 100.0 92 10 110/60 100 Nasal Cannula 2.00 10/06/16 23:00 106 17 101/52 99 Nasal Cannula 2.00 10/06/16 22:00 105 12 105/54 96 Nasal Cannula 2.00 10/06/16 21:00 114 17 94/59 96 Nasal Cannula 2.00 10/06/16 20:10 97 Nasal Cannula 2.00 10/06/16 20:00 97 Nasal Cannula 2.00 10/06/16 20:00 112 13 113/62 92 Room Air 10/06/16 19:00 112 10/06/16 19:00 101.7 113 14 103/34 93 Room Air 10/06/16 18:00 111 10 90/48 94 Nasal Cannula 2.00 10/06/16 17:00 112 16 111/38 93 Nasal Cannula 2.00 10/06/16 16:00 98 Room Air 10/06/16 16:00 98.5 10/06/16 16:00 98 9 106/47 94 Nasal Cannula 2.00 10/06/16 15:11 94 Room Air 2.00 10/06/16 15:00 98 10 102/46 91 Nasal Cannula 2.00 10/06/16 14:00 112 16 97/46 90 Nasal Cannula 2.00 10/06/16 13:00 101 10/06/16 13:00 104 12 89/54 98 Nasal Cannula 2.00 10/06/16 12:30 100 Nasal Cannula 2.00 10/06/16 12:00 105 9 106/53 100 Nasal Cannula 2.00 10/06/16 11:00 109 19 118/63 100 Nasal Cannula 2.00 10/06/16 10:00 100 11 101/59 100 Nasal Cannula 2.00 10/06/16 09:00 101 11 109/59 100 Nasal Cannula 2.00 10/06/16 08:00 88 10 102/52 100 Nasal Cannula 2.00 10/06/16 07:44 100 Nasal Cannula 2.00 I & O 10/07/16 07:00 Intake Total 6614 ml Output Total 2850 ml Balance 3764 ml General Appearance: No Apparent Distress WD/WN Obese HEENT: PERRL/EOMI Normal ENT Inspection Pharynx Normal Neck: Normal Inspection Respiratory: Lungs Clear Normal Breath Sounds No Accessory Muscle Use No Respiratory Distress Cardiovascular: Regular Rate, Rhythm No Edema No Murmur Capillary Refill: Less Than 3 Seconds Extremity: Other (marketed erythema, heat, and ecchymosis to the right lower extremity extending from the mid anterior martinez through the right lateral thigh.) Neurologic/Psychiatric: Alert Oriented x3 crm dynamics developer II-XII Norm as Tested Motor Weakness (chronic weakness of the lower extremities) Skin: Normal Color Warm/Dry Lymphatic: No Adenopathy Results Lab Laboratory Tests 10/05/16 21:40 10/06/16 04:30 10/07/16 06:50 Assessment/Plan Assessment/Plan -Sepsis secondary to cellulitis and UTI -Continue merrem, vanco, and clinda for now -stanford cultures pending -IVF Metabolic acidosis -IVF -Monitor Hyperkalemia - resolved Anemia -Will give 1 unit of PRBC -check occult stool Hypotension - improved -monitor, IVF chronic renal failure -monitor -hx of paralysis s/p CVA and multiple infections -Obesity Clinical Quality Measures DVT/VTE Risk/Contraindication: Risk Factor Score Per Nursin RFS Level Per Nursing on Admit: 4+=Very High RON BATES DO Oct 07, 2016 07:45
[2016-10-07] MEDS ORDERED: NS IV 500 ML 500 ML IV SCH (08:54)
[2016-10-07] MEDS ORDERED: TROUGH ORDER-PHARMACY XX ONE (09:00)
[2016-10-07] MEDS: MAGNESIUM 1 GM/100 ML IVPB 100 ML IV SCH ×2 (09:00→10:06)
--- NOTE | 2016-10-07 10:35 | Progress Note-Hospitalist ---
Progress Note HPI/CC on Admission CC: Sepsis with fever HPI: This is a 70yoWF pt known to me from multiple admissions for sepsis due to medical issues following vertebral artery CVA with residual paralysis and suprapubic cath causing multiple UTI's and pneumonias. States she had a fever the past 3 days and increased pain right flank. Dr. Perez Review: Dr. Perez states that pt is on multiple antibiotics, and has significant cellulitis. Lactic acid is likely rising so will recheck. Pt received fluid bolus. Patient Interview: Pt was very sleepy during visit. No details obtained. Pt states that she is receiving pain medication. Physical exam was stable. Scribed by Charlie Steen under the direct supervision of Dr. Toth. 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 Toth discusses pt's recovery with pharmacy. Pharmacy agrees to DC Clinda. Patient Interview: Dr. Toth informs pt that she will receive blood today. Physical exam was stable. Leg looks improved. Pt states that her bowels are moving now. Scribed by Charlie Steen under the direct supervision of Dr. Toth. 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
[2016-10-07] MEDS ORDERED: ACETAMINOPHEN 325 MG TABLET/CAPLET (TYLENOL) PO PRN (10:45)
[2016-10-07] MEDS ORDERED: BENZONATATE 100 MG (TESSALON) CAPSULE PO PRN (10:45)
[2016-10-07] MEDS ORDERED: HYDROcodone/APAP 5 MG/325 MG (LORTAB) TAB PO PRN (11:45)
[2016-10-07] MEDS ORDERED: EUCERIN CREAM 16 OZ JAR (HYDROCERIN) TOP PRN (11:45)
[2016-10-07] MEDS ORDERED: ARTIFICAL TEARS 0.4 ML UNIT DOSE (REFRESH PLUS) OU PRN (11:45)
--- NOTE | 2016-10-07 11:57 | Diagnostic Imaging Report ---
Portable upright radiograph of the chest. INDICATION: Sepsis. COMPARISON: 10/06/2016. FINDINGS: There is slight increase in right basilar infiltrate or atelectasis. The heart size is moderately enlarged. There is mild vascular congestion. It is obscuring the left lung base. No effusion or pneumothorax evident. The mediastinum and christiano appear stable. There is an infusion port with the tip at the proximal right atrium. IMPRESSION: Interval increase in the patchy right basilar infiltrate or atelectasis. Mild vascular congestion. Dictated by: Dictated on workstation # [id number]
[2016-10-07] MEDS ORDERED: EUCERIN CREAM 4 OZ JAR (HYDROCERIN) TP PRN (12:14)
[2016-10-07] MEDS ORDERED: NS IV 500 ML 500 ML IV PRN (13:30)
[2016-10-07] MEDS: PREGABALIN 100 MG (LYRICA) CAPSULE PO SCH ×2 (15:21→21:00)
[2016-10-07] MEDS: BACLOFEN 10 MG (LIORESAL) TAB PO SCH ×2 (15:21→21:00)
[2016-10-07] MEDS: ZINC OXIDE 16% OINT (BUTT PASTE) 113 GM TUBE TP SCH ×2 (15:22→21:49)
[2016-10-07] MEDS: BENAZEPRIL 20 MG (LOTENSIN) TAB PO SCH (19:48)
[2016-10-07] MEDS: amLODIPine 5 MG (NORVASC) TAB PO SCH (19:49)
[2016-10-07] MEDS ORDERED: MESALAMINE RC SCH (21:00)
[2016-10-07] MEDS: SIMvastatin 10 MG (ZOCOR) TAB PO SCH (21:00)
[2016-10-07] MEDS: PANTOPRAZOLE 40 MG (PROTONIX) TAB PO SCH (21:20)
[2016-10-07] MEDS: ONDANSETRON 4 MG (ZOFRAN) ORAL DISSOLVE TAB PO PRN (21:21)
[2016-10-07] MEDS: KETOCONAZOLE 2% CREAM 15 GM (NIZORAL) TP SCH (21:49)
[2016-10-08] VITALS: BP 121/56
[2016-10-08] MEDS: MEROPENEM 500 MG in NORMAL SALINE (BAXTER MINI) 100 ML IV SCH ×4 (00:04→18:38)
[2016-10-08] MEDS: NS IV 1000 ML 1,000 ML IV SCH ×3 (00:05→16:27)
[2016-10-08 04:17] VITALS: BP 130/64
[2016-10-08] MEDS ORDERED: MEROPENEM 500 MG VIAL (MERREM) IV ONE ×4 (04:51→23:54)
[2016-10-08] MEDS ORDERED: NORMAL SALINE (BAXTER MINI) 100 ML IV ONE ×3 (04:51→18:28)
[2016-10-08] MEDS: LEVOTHYROXINE 150 MCG (LEVOTHROID) TAB PO SCH (05:01)
[2016-10-08] MEDS ORDERED: TROUGH ORDER-PHARMACY XX NR (06:00)
[2016-10-08] MEDS: MULTIVIT W/MINERALS TAB (THERAGRAN M) PO SCH (06:06)
[2016-10-08] MEDS: KCL 20 MEQ TAB (K-DUR) PO SCH (06:07)
[2016-10-08] MEDS: HYDROcodone/APAP 5 MG/325 MG (LORTAB) TAB PO PRN ×2 (06:30→18:44)
[2016-10-08 06:32] LABS: BASOPHILS # (AUTO) 0.1 10^3/uL (0.0-0.1); BASOPHILS % (AUTO) 0 % (0-10); EOSINOPHILS # (AUTO) 0.7 10^3/uL (0.0-0.3); EOSINOPHILS % (AUTO) 5 % (0-10); LYMPHOCYTES # (AUTO) 0.9 X 10^3 (1.0-4.0); LYMPHOCYTES % (AUTO) 7 % (12-44); MEAN CORPUSCULAR HEMOGLOBIN 25 PG (25-34); MEAN CORPUSCULAR HGB CONC 33 G/DL (32-36); MEAN CORPUSCULAR VOLUME 76 FL (80-99); MEAN PLATELET VOLUME 10.7 FL (7.4-10.4); MONOCYTES # (AUTO) 0.8 X 10^3 (0.0-1.0); MONOCYTES % (AUTO) 6 % (0-12); NEUTROPHILS # (AUTO) 11.1 X 10^3 (1.8-7.8); NEUTROPHILS % (AUTO) 82 % (42-75); PLATELET COUNT 172 10^3/uL (130-400); WHITE BLOOD COUNT 13.5 10^3/uL (4.3-11.0)
[2016-10-08 06:54] LABS: CALCIUM 8.1 MG/DL (8.5-10.1); POTASSIUM 4.5 MMOL/L (3.6-5.0)
[2016-10-08 08:00] VITALS: BP 144/63
[2016-10-08] MEDS: RT-ALBUTEROL SULF 2.5 MG/3 ML PRE-MIX VIAL INH SCH ×3 (08:12→19:58)
[2016-10-08] MEDS ORDERED: MESALAMINE 1.2 GM PO SCH (09:00)
[2016-10-08] MEDS ORDERED: NON-FORMULARY MEDICATION 1 EA EA (Cranberry Fruit (Cranberry) 450 MG) PO SCH (09:00)
[2016-10-08] MEDS ORDERED: VANCOMYCIN 1 GM ADD-VANTAGE VIAL IV ONE ×2 (09:15→09:18)
[2016-10-08] MEDS ORDERED: SODIUM CHLORIDE (ADD-VANTAGE) 250 ML ONE (09:19)
[2016-10-08] MEDS: VANCOMYCIN 1 GM/NS 250 ML IVPB IV SCH ×2 (09:36)
[2016-10-08] MEDS: ONDANSETRON 4 MG (ZOFRAN) ORAL DISSOLVE TAB PO PRN (09:39)
[2016-10-08] MEDS: LACTOBACILLUS Acidoph/Bulgar (LACTINEX/FLORANEX) TAB PO SCH (09:39)
[2016-10-08] MEDS: PANTOPRAZOLE 40 MG (PROTONIX) TAB PO SCH ×2 (09:39→20:02)
[2016-10-08] MEDS: PREGABALIN 100 MG (LYRICA) CAPSULE PO SCH ×3 (09:40→20:03)
[2016-10-08] MEDS: LORATADINE (CLARITIN) 10 MG TAB PO SCH (09:41)
[2016-10-08] MEDS: VENlafaxine XR 75 MG (EFFEXOR XR) CAP PO SCH (09:41)
[2016-10-08] MEDS: MAGNESIUM OXIDE (MAG-OX)400 MG TAB PO SCH (09:41)
[2016-10-08] MEDS: FUROSEMIDE 40 MG (LASIX) TAB PO SCH (09:41)
[2016-10-08] MEDS: ASPIRIN E.C. 81 MG (ECOTRIN) TAB PO SCH (09:41)
[2016-10-08] MEDS: BACLOFEN 10 MG (LIORESAL) TAB PO SCH ×3 (09:41→20:02)
[2016-10-08] MEDS: ZINC OXIDE 16% OINT (BUTT PASTE) 113 GM TUBE TP SCH ×3 (09:42→20:03)
[2016-10-08] MEDS: KETOCONAZOLE 2% CREAM 15 GM (NIZORAL) TP SCH ×2 (09:43→20:03)
--- NOTE | 2016-10-08 09:48 | Pulmonary Progress Note ---
Subjective Subjective/Events-last exam no complications noted Exam Exam Vital Signs Date Time Temp Pulse Resp B/P Pulse Ox O2 Delivery O2 Flow Rate FiO2 10/08/16 08:12 92 Nasal Cannula 2.00 10/08/16 08:00 100.5 106 20 144/63 90 Nasal Cannula 2.00 10/08/16 04:17 99.5 92 19 130/64 90 Room Air 10/08/16 01:00 88 10/08/16 00:00 99.3 92 17 121/56 91 Room Air 10/07/16 20:35 99.3 102 141/60 Room Air 10/07/16 20:00 93 Room Air 10/07/16 19:59 99.3 102 16 141/60 94 Room Air 10/07/16 19:00 101 10/07/16 18:34 98.6 103 16 124/66 95 Room Air 10/07/16 18:05 100 Nasal Cannula 2.00 10/07/16 18:05 98.6 95 18 124/66 96 Room Air 10/07/16 17:57 98.4 96 16 122/57 96 Room Air 10/07/16 17:48 98.4 96 16 122/57 96 Room Air 10/07/16 17:00 97.5 98 14 118/55 91 Room Air 10/07/16 14:40 97.1 92 10 119/54 91 Room Air 10/07/16 14:33 93 Room Air 10/07/16 14:25 99.2 93 13 111/56 91 Room Air 10/07/16 13:00 89 7 110/57 95 Nasal Cannula 2.00 10/07/16 13:00 86 10/07/16 12:00 93 8 117/56 93 Nasal Cannula 2.00 10/07/16 12:00 100 Nasal Cannula 2.00 10/07/16 11:00 94 13 130/60 92 Nasal Cannula 2.00 10/07/16 10:00 89 9 106/54 90 Nasal Cannula 2.00 I & O 10/08/16 07:00 Intake Total 822 ml Output Total 2700 ml Balance -1878 ml General Appearance: No Apparent Distress WD/WN Obese HEENT: PERRL/EOMI Normal ENT Inspection Pharynx Normal Neck: Normal Inspection Respiratory: Lungs Clear Normal Breath Sounds No Accessory Muscle Use No Respiratory Distress Cardiovascular: Regular Rate, Rhythm No Edema No Murmur Capillary Refill: Less Than 3 Seconds Extremity: Other (marketed erythema, heat, and ecchymosis to the right lower extremity extending from the mid anterior martinez through the right lateral thigh.) Neurologic/Psychiatric: Alert 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 Tested Motor Weakness (chronic weakness of the lower extremities) Skin: Normal Color Warm/Dry Lymphatic: No Adenopathy Results Lab Laboratory Tests 10/07/16 06:50 10/08/16 06:15 Assessment/Plan Assessment/Plan -Sepsis secondary to cellulitis and UTI -Continue merrem, vanco, -stanford cultures pending -IVF Metabolic acidosis -IVF -Monitor Hyperkalemia - resolved Anemia -check occult stool Hypotension - improved -monitor, IVF chronic renal failure -monitor -hx of paralysis s/p CVA and multiple infections -Obesity Clinical Quality Measures DVT/VTE Risk/Contraindication: Risk Factor Score Per Nursin RFS Level Per Nursing on Admit: 4+=Very High RON BATES DO Oct 08, 2016 09:47
[2016-10-08] MEDS ORDERED: fluCOnazole (DIFLUCAN) 100 MG TAB PO SCH (10:45)
--- NOTE | 2016-10-08 11:14 | Progress Note-Hospitalist ---
Progress Note HPI/CC on Admission CC: Sepsis with fever HPI: This is a 70yoWF pt known to me from multiple admissions for sepsis due to medical issues following vertebral artery CVA with residual paralysis and suprapubic cath causing multiple UTI's and pneumonias. States she had a fever the past 3 days and increased pain right flank. Dr. Perez Review: Dr. Perez states that pt is on multiple antibiotics, and has significant cellulitis. Lactic acid is likely rising so will recheck. Pt received fluid bolus. Patient Interview: Pt was very sleepy during visit. No details obtained. Pt states that she is receiving pain medication. Physical exam was stable. Scribed by Charlie Steen under the direct supervision of Dr. Toth. 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 Pt did not take all of her meds this morning. Patient Interview: Pt confirms that she has some nausea. Pt states that she vomited last night, and has been gagging this morning. Pt took a probiotic. Dr. Toth informs pt that WBC and Hgb are improved. Physical exam was stable. 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 Toth. Laboratory Tests 10/08/16 06:15 Plan: Abx Prognosis guarded but continues to be full code even after palliative care consultations in the past KESHA TOTH DO Oct 08, 2016 11:14 2 units of blood DC Clinda Move to floor Restart home meds IVF decreased to 50cc/hr Abx Prognosis guarded but continues to be full code even after palliative care consultations in the past KESHA TOTH DO Oct 08, 2016 11:14
[2016-10-08] MEDS: SCOPOLAMINE 1.5 MG (TRANSDERM-SCOP) PATCH TOP SCH (11:26)
[2016-10-08 12:00] VITALS: BP 166/76
--- NOTE | 2016-10-08 13:42 | Physician Query-General Query ---
Physician Query-General Query to Physician: For clarification: 1. Was aspiration pneumonia listed on ED dx ruled in or out? 2. Acute renal failure and chronic renal failure are documented. Do you agree with the diagnosis of acute renal failure? If agree, was acute renal failure related to patient's sepsis? other? 3. Was the current UTI related to the patient's suprapubic catheter? PHYSICIAN RESPONSE: Based on the clinical findings in the record, please respond to the query above on this document as an addendum. Possible, probable, or questionable diagnosis can be coded for INPATIENTS ONLY. Physician Response: Physician Response 1. Was aspiration pneumonia listed on ED dx ruled in or out? Ruled out 2. Acute renal failure and chronic renal failure are documented. Do you agree with the diagnosis of acute renal failure? Yes related to sepsis If agree, was acute renal failure related to patient's sepsis? other? 3. Was the current UTI related to the patient's suprapubic catheter? Yes If you have questions please contact: Heading Repairer:Silke Baltazar CCS,CCDS Ext:[phone] Thank you for your time and cooperation. Clinical Surveillance Technician/Heading Repairer This is a permanent part of the medical record SILKE BALTAZAR Oct 08, 2016 13:42 KESHA TOTH DO Oct 09, 2016 14:35
[2016-10-08 16:43] VITALS: BP 159/75
[2016-10-08] MEDS: amLODIPine 5 MG (NORVASC) TAB PO SCH (18:38)
[2016-10-08] MEDS: BENAZEPRIL 20 MG (LOTENSIN) TAB PO SCH (18:39)
[2016-10-08 20:00] VITALS: BP 129/55
[2016-10-08] MEDS: SIMvastatin 10 MG (ZOCOR) TAB PO SCH (20:02)
[2016-10-09] VITALS: BP 111/55
[2016-10-09] MEDS: MEROPENEM 500 MG in NORMAL SALINE (BAXTER MINI) 100 ML IV SCH ×4 (00:04→18:16)
[2016-10-09 04:00] VITALS: BP 114/55
[2016-10-09] MEDS: LEVOTHYROXINE 150 MCG (LEVOTHROID) TAB PO SCH (04:17)
[2016-10-09] MEDS: NS IV 1000 ML 1,000 ML IV SCH ×2 (04:32→16:43)
[2016-10-09 04:47] LABS: BASOPHILS # (AUTO) 0.1 10^3/uL (0.0-0.1); BASOPHILS % (AUTO) 1 % (0-10); EOSINOPHILS # (AUTO) 0.9 10^3/uL (0.0-0.3); EOSINOPHILS % (AUTO) 11 % (0-10); LYMPHOCYTES # (AUTO) 0.8 X 10^3 (1.0-4.0); LYMPHOCYTES % (AUTO) 10 % (12-44); MEAN CORPUSCULAR HEMOGLOBIN 24 PG (25-34); MEAN CORPUSCULAR HGB CONC 32 G/DL (32-36); MEAN CORPUSCULAR VOLUME 77 FL (80-99); MEAN PLATELET VOLUME 10.9 FL (7.4-10.4); MONOCYTES # (AUTO) 0.9 X 10^3 (0.0-1.0); MONOCYTES % (AUTO) 10 % (0-12); NEUTROPHILS # (AUTO) 5.8 X 10^3 (1.8-7.8); NEUTROPHILS % (AUTO) 68 % (42-75); PLATELET COUNT 170 10^3/uL (130-400); RED BLOOD COUNT 3.73 10^6/uL (4.35-5.85); RED CELL DISTRIBUTION WIDTH 16.6 % (10.0-14.5); WHITE BLOOD COUNT 8.5 10^3/uL (4.3-11.0)
[2016-10-09 05:05] LABS: CALCIUM 8.1 MG/DL (8.5-10.1); CREATININE SERUM 0.95 MG/DL (0.60-1.30); POTASSIUM 4.2 MMOL/L (3.6-5.0)
[2016-10-09] MEDS: MULTIVIT W/MINERALS TAB (THERAGRAN M) PO SCH (06:12)
[2016-10-09] MEDS: KCL 20 MEQ TAB (K-DUR) PO SCH (06:12)
[2016-10-09] MEDS: RT-ALBUTEROL SULF 2.5 MG/3 ML PRE-MIX VIAL INH SCH ×2 (07:53→14:58)
[2016-10-09 08:47] VITALS: BP 121/58
[2016-10-09] MEDS: LORATADINE (CLARITIN) 10 MG TAB PO SCH (10:47)
[2016-10-09] MEDS: MAGNESIUM OXIDE (MAG-OX)400 MG TAB PO SCH (10:47)
[2016-10-09] MEDS: VENlafaxine XR 75 MG (EFFEXOR XR) CAP PO SCH (10:47)
[2016-10-09] MEDS: PREGABALIN 100 MG (LYRICA) CAPSULE PO SCH ×3 (10:47→21:02)
[2016-10-09] MEDS: PANTOPRAZOLE 40 MG (PROTONIX) TAB PO SCH ×2 (10:47→21:02)
[2016-10-09] MEDS: BACLOFEN 10 MG (LIORESAL) TAB PO SCH ×3 (10:47→21:02)
[2016-10-09] MEDS: ASPIRIN E.C. 81 MG (ECOTRIN) TAB PO SCH (10:48)
[2016-10-09] MEDS: FUROSEMIDE 40 MG (LASIX) TAB PO SCH (10:48)
[2016-10-09] MEDS: LACTOBACILLUS Acidoph/Bulgar (LACTINEX/FLORANEX) TAB PO SCH (10:48)
[2016-10-09] MEDS: KETOCONAZOLE 2% CREAM 15 GM (NIZORAL) TP SCH ×2 (10:52→21:03)
[2016-10-09] MEDS: ZINC OXIDE 16% OINT (BUTT PASTE) 113 GM TUBE TP SCH ×3 (10:52→21:03)
[2016-10-09 12:00] VITALS: BP 114/55
[2016-10-09] MEDS ORDERED: MEROPENEM 500 MG VIAL (MERREM) IV ONE ×2 (12:20→15:55)
--- NOTE | 2016-10-09 13:18 | Progress Note-Hospitalist ---
Progress Note HPI/CC on Admission CC: Sepsis with fever HPI: This is a 70yoWF pt known to me from multiple admissions for sepsis due to medical issues following vertebral artery CVA with residual paralysis and suprapubic cath causing multiple UTI's and pneumonias. States she had a fever the past 3 days and increased pain right flank. Dr. Perez Review: Dr. Perez states that pt is on multiple antibiotics, and has significant cellulitis. Lactic acid is likely rising so will recheck. Pt received fluid bolus. Patient Interview: Pt was very sleepy during visit. No details obtained. Pt states that she is receiving pain medication. Physical exam was stable. Scribed by Charlie Steen under the direct supervision of Dr. Toth. 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 Hypothyroidism previous myxedema coma 10/25 Diagonsis/Assessment & Plan Chart Review: WBC: down to normal Creat: 1.0 Patient denies any nausea currently but still has scopolamine patch on which is helpful Colostomy is working properly Denies any pain Vitals reviewed and stable, pleasant, O x 3, improved although pale and declined RRR, CTAB decreased BS bases No edema paralysis no changes Assessment: Sepsis due to right flank cellulitis with leukocytosis and fever and hypotension , placed on Vanc, Radha, Clinda empirically but DC'ed Clinda 2 days ago 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
[2016-10-09 16:49] VITALS: BP 108/51
[2016-10-09] MEDS ORDERED: RT-ALBUTEROL SULF 2.5 MG/3 ML PRE-MIX VIAL INH SCH (18:00)
[2016-10-09] MEDS: amLODIPine 5 MG (NORVASC) TAB PO SCH (18:16)
[2016-10-09] MEDS: BENAZEPRIL 20 MG (LOTENSIN) TAB PO SCH (18:16)
[2016-10-09 20:43] VITALS: BP 120/59
[2016-10-09] MEDS: SIMvastatin 10 MG (ZOCOR) TAB PO SCH (21:02)
[2016-10-09] MEDS ORDERED: RT-ALBUTEROL SULF 2.5 MG/3 ML PRE-MIX VIAL INH PRN (22:00)
[2016-10-10] VITALS: BP 122/70
[2016-10-10] MEDS: MEROPENEM 500 MG in NORMAL SALINE (BAXTER MINI) 100 ML IV SCH ×4 (00:05→17:22)
[2016-10-10 04:00] VITALS: BP 118/52
[2016-10-10] MEDS: LEVOTHYROXINE 150 MCG (LEVOTHROID) TAB PO SCH (04:26)
[2016-10-10 04:30] LABS: BASOPHILS # (AUTO) 0.1 10^3/uL (0.0-0.1); BASOPHILS % (AUTO) 1 % (0-10); EOSINOPHILS # (AUTO) 1.1 10^3/uL (0.0-0.3); EOSINOPHILS % (AUTO) 15 % (0-10); LYMPHOCYTES # (AUTO) 0.9 X 10^3 (1.0-4.0); LYMPHOCYTES % (AUTO) 12 % (12-44); MEAN CORPUSCULAR HEMOGLOBIN 25 PG (25-34); MEAN CORPUSCULAR HGB CONC 32 G/DL (32-36); MEAN CORPUSCULAR VOLUME 78 FL (80-99); MONOCYTES # (AUTO) 0.8 X 10^3 (0.0-1.0); MONOCYTES % (AUTO) 10 % (0-12); NEUTROPHILS # (AUTO) 4.8 X 10^3 (1.8-7.8); NEUTROPHILS % (AUTO) 63 % (42-75); PLATELET COUNT 180 10^3/uL (130-400); RED BLOOD COUNT 3.69 10^6/uL (4.35-5.85); RED CELL DISTRIBUTION WIDTH 17.2 % (10.0-14.5); WHITE BLOOD COUNT 7.7 10^3/uL (4.3-11.0)
[2016-10-10 04:50] LABS: ANION GAP 10 MMOL/L (5-14); BLOOD UREA NITROGEN 20 MG/DL (7-18); BUN/CREATININE RATIO 23; CARBON DIOXIDE 20 MMOL/L (21-32); CHLORIDE 115 MMOL/L (98-107); CREATININE SERUM 0.88 MG/DL (0.60-1.30); GFR ESTIMATED > 60; GLUCOSE 87 MG/DL (70-105); POTASSIUM 4.6 MMOL/L (3.6-5.0); SODIUM 145 MMOL/L (135-145)
[2016-10-10] MEDS: NS IV 1000 ML 1,000 ML IV SCH ×2 (05:37→18:49)
[2016-10-10] MEDS: KCL 20 MEQ TAB (K-DUR) PO SCH (06:02)
[2016-10-10] MEDS: MULTIVIT W/MINERALS TAB (THERAGRAN M) PO SCH (06:02)
[2016-10-10] MEDS: RT-ALBUTEROL SULF 2.5 MG/3 ML PRE-MIX VIAL INH SCH ×4 (07:17→19:23)
[2016-10-10 08:00] VITALS: BP 138/63
[2016-10-10] MEDS ORDERED: VANCOMYCIN 1 GM ADD-VANTAGE VIAL IV ONE (09:10)
[2016-10-10] MEDS ORDERED: SODIUM CHLORIDE (ADD-VANTAGE) 250 ML ONE (09:11)
[2016-10-10] MEDS: BACLOFEN 10 MG (LIORESAL) TAB PO SCH ×3 (09:32→20:37)
[2016-10-10] MEDS: PREGABALIN 100 MG (LYRICA) CAPSULE PO SCH ×3 (09:32→20:37)
[2016-10-10] MEDS: LORATADINE (CLARITIN) 10 MG TAB PO SCH (09:32)
[2016-10-10] MEDS: PANTOPRAZOLE 40 MG (PROTONIX) TAB PO SCH ×2 (09:32→20:37)
[2016-10-10] MEDS: LACTOBACILLUS Acidoph/Bulgar (LACTINEX/FLORANEX) TAB PO SCH (09:32)
[2016-10-10] MEDS: VANCOMYCIN 1 GM/NS 250 ML IVPB IV SCH ×2 (09:32)
[2016-10-10] MEDS: ASPIRIN E.C. 81 MG (ECOTRIN) TAB PO SCH (09:33)
[2016-10-10] MEDS: FUROSEMIDE 40 MG (LASIX) TAB PO SCH (09:33)
[2016-10-10] MEDS: MAGNESIUM OXIDE (MAG-OX)400 MG TAB PO SCH (09:33)
[2016-10-10] MEDS: ZINC OXIDE 16% OINT (BUTT PASTE) 113 GM TUBE TP SCH ×3 (09:34→20:38)
[2016-10-10] MEDS: KETOCONAZOLE 2% CREAM 15 GM (NIZORAL) TP SCH ×2 (09:34→20:38)
[2016-10-10] MEDS: VENlafaxine XR 75 MG (EFFEXOR XR) CAP PO SCH (09:38)
[2016-10-10] MEDS ORDERED: MEROPENEM 500 MG VIAL (MERREM) IV ONE ×2 (11:55→17:10)
[2016-10-10] MEDS ORDERED: NORMAL SALINE (BAXTER MINI) 100 ML IV ONE ×2 (11:56→17:10)
[2016-10-10 12:00] VITALS: BP 123/60
--- NOTE | 2016-10-10 13:32 | Progress Note-Hospitalist ---
Progress Note HPI/CC on Admission CC: Sepsis with fever HPI: This is a 70yoWF pt known to me from multiple admissions for sepsis due to medical issues following vertebral artery CVA with residual paralysis and suprapubic cath causing multiple UTI's and pneumonias. States she had a fever the past 3 days and increased pain right flank. Dr. Perez Review: Dr. Perez states that pt is on multiple antibiotics, and has significant cellulitis. Lactic acid is likely rising so will recheck. Pt received fluid bolus. Patient Interview: Pt was very sleepy during visit. No details obtained. Pt states that she is receiving pain medication. Physical exam was stable. Scribed by Charlie Steen under the direct supervision of Dr. Toth. 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 Hypothyroidism previous myxedema coma 10/25 Diagonsis/Assessment & Plan Patient denies any nausea currently but still has scopolamine patch on which is helpful Colostomy is working properly Denies any pain Vitals reviewed and stable, pleasant, O x 3, improved although pale and declined RRR, CTAB decreased BS bases No edema paralysis no changes Assessment: Sepsis due to right flank cellulitis with leukocytosis and fever and hypotension , placed on Vanc, Radha, Clinda empirically but DC'ed Clinda 3 days ago 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
[2016-10-10 16:59] VITALS: BP 145/69
[2016-10-10] MEDS: BENAZEPRIL 20 MG (LOTENSIN) TAB PO SCH (17:21)
[2016-10-10] MEDS: amLODIPine 5 MG (NORVASC) TAB PO SCH (17:21)
[2016-10-10] MEDS: SIMvastatin 10 MG (ZOCOR) TAB PO SCH (20:37)
[2016-10-11 00:01] VITALS: BP 147/75
[2016-10-11] MEDS ORDERED: MEROPENEM 500 MG VIAL (MERREM) IV ONE ×4 (00:32→16:58)
[2016-10-11] MEDS ORDERED: NORMAL SALINE (BAXTER MINI) 100 ML IV ONE ×4 (00:33→16:59)
[2016-10-11] MEDS: MEROPENEM 500 MG in NORMAL SALINE (BAXTER MINI) 100 ML IV SCH ×4 (00:49→17:08)
[2016-10-11] MEDS: LEVOTHYROXINE 150 MCG (LEVOTHROID) TAB PO SCH (05:10)
[2016-10-11 05:32] LABS: BASOPHILS # (AUTO) 0.1 10^3/uL (0.0-0.1); BASOPHILS % (AUTO) 1 % (0-10); EOSINOPHILS % (AUTO) 13 % (0-10); LYMPHOCYTES % (AUTO) 13 % (12-44); MEAN CORPUSCULAR HEMOGLOBIN 25 PG (25-34); MEAN CORPUSCULAR HGB CONC 32 G/DL (32-36); MEAN CORPUSCULAR VOLUME 77 FL (80-99); MEAN PLATELET VOLUME 10.5 FL (7.4-10.4); MONOCYTES # (AUTO) 0.7 X 10^3 (0.0-1.0); MONOCYTES % (AUTO) 10 % (0-12); NEUTROPHILS # (AUTO) 4.8 X 10^3 (1.8-7.8); NEUTROPHILS % (AUTO) 63 % (42-75); PLATELET COUNT 199 10^3/uL (130-400); RED BLOOD COUNT 3.81 10^6/uL (4.35-5.85); RED CELL DISTRIBUTION WIDTH 17.1 % (10.0-14.5); WHITE BLOOD COUNT 7.6 10^3/uL (4.3-11.0)
[2016-10-11 05:40] LABS: ANION GAP 10 MMOL/L (5-14); BLOOD UREA NITROGEN 17 MG/DL (7-18); BUN/CREATININE RATIO 20; CALCIUM 8.1 MG/DL (8.5-10.1); CARBON DIOXIDE 22 MMOL/L (21-32); CHLORIDE 113 MMOL/L (98-107); CREATININE SERUM 0.83 MG/DL (0.60-1.30); GFR ESTIMATED > 60; GLUCOSE 93 MG/DL (70-105); POTASSIUM 3.9 MMOL/L (3.6-5.0); SODIUM 145 MMOL/L (135-145)
[2016-10-11] MEDS: KCL 20 MEQ TAB (K-DUR) PO SCH (06:23)
[2016-10-11] MEDS: MULTIVIT W/MINERALS TAB (THERAGRAN M) PO SCH (06:23)
[2016-10-11] MEDS: NS IV 1000 ML 1,000 ML IV SCH ×2 (07:43→17:08)
[2016-10-11] MEDS: RT-ALBUTEROL SULF 2.5 MG/3 ML PRE-MIX VIAL INH SCH ×4 (07:48→19:37)
[2016-10-11 08:00] VITALS: BP 138/68
[2016-10-11] MEDS: BACLOFEN 10 MG (LIORESAL) TAB PO SCH ×3 (08:57→20:27)
[2016-10-11] MEDS: MAGNESIUM OXIDE (MAG-OX)400 MG TAB PO SCH (08:57)
[2016-10-11] MEDS: LACTOBACILLUS Acidoph/Bulgar (LACTINEX/FLORANEX) TAB PO SCH (08:57)
[2016-10-11] MEDS: LORATADINE (CLARITIN) 10 MG TAB PO SCH (08:57)
[2016-10-11] MEDS: FUROSEMIDE 40 MG (LASIX) TAB PO SCH (08:57)
[2016-10-11] MEDS: VENlafaxine XR 75 MG (EFFEXOR XR) CAP PO SCH (08:57)
[2016-10-11] MEDS: PANTOPRAZOLE 40 MG (PROTONIX) TAB PO SCH ×2 (08:57→20:27)
[2016-10-11] MEDS: PREGABALIN 100 MG (LYRICA) CAPSULE PO SCH ×3 (08:58→20:27)
[2016-10-11] MEDS: ASPIRIN E.C. 81 MG (ECOTRIN) TAB PO SCH (08:58)
[2016-10-11] MEDS: KETOCONAZOLE 2% CREAM 15 GM (NIZORAL) TP SCH ×2 (08:59→20:27)
[2016-10-11] MEDS: ZINC OXIDE 16% OINT (BUTT PASTE) 113 GM TUBE TP SCH ×3 (08:59→20:27)
--- NOTE | 2016-10-11 09:06 | Pulmonary Progress Note ---
Exam Exam Vital Signs Date Time Temp Pulse Resp B/P Pulse Ox O2 Delivery O2 Flow Rate FiO2 10/11/16 08:00 98.2 88 18 138/68 94 Room Air 10/11/16 07:48 93 Nasal Cannula 2.00 10/11/16 00:01 98.9 63 18 147/75 94 Room Air 10/10/16 20:00 Room Air 10/10/16 19:15 94 Nasal Cannula 2.00 10/10/16 16:59 98.4 64 18 145/69 96 Room Air 10/10/16 12:00 98.0 68 20 123/60 93 Room Air I & O 10/11/16 07:00 Intake Total 3634 ml Output Total 5850 ml Balance -2216 ml General Appearance: No Apparent Distress WD/WN Obese HEENT: PERRL/EOMI Normal ENT Inspection Pharynx Normal Neck: Normal Inspection Respiratory: Lungs Clear Normal Breath Sounds No Accessory Muscle Use No Respiratory Distress Cardiovascular: Regular Rate, Rhythm No Edema No Murmur Capillary Refill: Less Than 3 Seconds Extremity: Other (marketed erythema, heat, and ecchymosis to the right lower extremity extending from the mid anterior martinez through the right lateral thigh.) Neurologic/Psychiatric: Alert 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 Motor Weakness (chronic weakness of the lower extremities) Skin: Normal Color Warm/Dry Lymphatic: No Adenopathy Results Lab Laboratory Tests 10/10/16 04:15 10/11/16 05:15 Assessment/Plan Assessment/Plan -Sepsis secondary to cellulitis and UTI and pseudomonus bacteremia -Continue merrem, vanco, -PT has allergy to PCN -stanford cultures pending -IVF Metabolic acidosis -IVF -Monitor Hyperkalemia - resolved Anemia -check occult stool Hypotension - improved -monitor, IVF chronic renal failure -monitor -hx of paralysis s/p CVA and multiple infections -Obesity Clinical Quality Measures DVT/VTE Risk/Contraindication: Risk Factor Score Per Nursin RFS Level Per Nursing on Admit: 4+=Very High RON BATES DO Oct 11, 2016 09:06
--- NOTE | 2016-10-11 10:53 | Progress Note-Hospitalist ---
Progress Note HPI/CC on Admission CC: Sepsis with fever HPI: This is a 70yoWF pt known to me from multiple admissions for sepsis due to medical issues following vertebral artery CVA with residual paralysis and suprapubic cath causing multiple UTI's and pneumonias. States she had a fever the past 3 days and increased pain right flank. Dr. Perez Review: Dr. Perez states that pt is on multiple antibiotics, and has significant cellulitis. Lactic acid is likely rising so will recheck. Pt received fluid bolus. Patient Interview: Pt was very sleepy during visit. No details obtained. Pt states that she is receiving pain medication. Physical exam was stable. Scribed by Charlie Steen under the direct supervision of Dr. Toth. 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
[2016-10-11] MEDS: SCOPOLAMINE 1.5 MG (TRANSDERM-SCOP) PATCH TOP SCH (13:31)
[2016-10-11 16:50] VITALS: BP 151/75
[2016-10-11] MEDS: BENAZEPRIL 20 MG (LOTENSIN) TAB PO SCH (17:08)
[2016-10-11] MEDS: amLODIPine 5 MG (NORVASC) TAB PO SCH (17:09)
[2016-10-11] MEDS: SIMvastatin 10 MG (ZOCOR) TAB PO SCH (20:27)
[2016-10-12] VITALS: BP 179/73
[2016-10-12] MEDS: MEROPENEM 500 MG in NORMAL SALINE (BAXTER MINI) 100 ML IV SCH ×4 (00:59→17:19)
[2016-10-12] MEDS: NS IV 1000 ML 1,000 ML IV SCH ×3 (03:41→19:29)
[2016-10-12] MEDS: LEVOTHYROXINE 150 MCG (LEVOTHROID) TAB PO SCH (05:05)
[2016-10-12] MEDS: MULTIVIT W/MINERALS TAB (THERAGRAN M) PO SCH (06:12)
[2016-10-12] MEDS: KCL 20 MEQ TAB (K-DUR) PO SCH (06:13)
[2016-10-12 06:28] LABS: BASOPHILS # (AUTO) 0.1 10^3/uL (0.0-0.1); BASOPHILS % (AUTO) 1 % (0-10); EOSINOPHILS # (AUTO) 0.9 10^3/uL (0.0-0.3); EOSINOPHILS % (AUTO) 10 % (0-10); LYMPHOCYTES # (AUTO) 0.8 X 10^3 (1.0-4.0); LYMPHOCYTES % (AUTO) 9 % (12-44); MEAN CORPUSCULAR HEMOGLOBIN 24 PG (25-34); MEAN CORPUSCULAR HGB CONC 31 G/DL (32-36); MEAN CORPUSCULAR VOLUME 77 FL (80-99); MEAN PLATELET VOLUME 10.8 FL (7.4-10.4); MONOCYTES # (AUTO) 0.7 X 10^3 (0.0-1.0); MONOCYTES % (AUTO) 8 % (0-12); NEUTROPHILS # (AUTO) 6.7 X 10^3 (1.8-7.8); NEUTROPHILS % (AUTO) 73 % (42-75); PLATELET COUNT 225 10^3/uL (130-400); RED BLOOD COUNT 3.88 10^6/uL (4.35-5.85); RED CELL DISTRIBUTION WIDTH 17.6 % (10.0-14.5); WHITE BLOOD COUNT 9.2 10^3/uL (4.3-11.0)
[2016-10-12 06:58] LABS: ANION GAP 12 MMOL/L (5-14); BLOOD UREA NITROGEN 17 MG/DL (7-18); BUN/CREATININE RATIO 21; CALCIUM 7.9 MG/DL (8.5-10.1); CARBON DIOXIDE 23 MMOL/L (21-32); CHLORIDE 111 MMOL/L (98-107); GFR ESTIMATED > 60; GLUCOSE 94 MG/DL (70-105); SODIUM 146 MMOL/L (135-145)
[2016-10-12] MEDS: RT-ALBUTEROL SULF 2.5 MG/3 ML PRE-MIX VIAL INH SCH ×4 (07:21→19:23)
[2016-10-12 08:00] VITALS: BP 168/82
[2016-10-12] MEDS ORDERED: SODIUM CHLORIDE (ADD-VANTAGE) 250 ML ONE (08:50)
[2016-10-12] MEDS ORDERED: VANCOMYCIN 1 GM ADD-VANTAGE VIAL IV ONE (08:50)
[2016-10-12] MEDS: VANCOMYCIN 1 GM/NS 250 ML IVPB IV SCH ×2 (09:02)
[2016-10-12] MEDS: PREGABALIN 100 MG (LYRICA) CAPSULE PO SCH ×3 (09:04→20:40)
[2016-10-12] MEDS: ZINC OXIDE 16% OINT (BUTT PASTE) 113 GM TUBE TP SCH ×3 (09:04→20:40)
[2016-10-12] MEDS: KETOCONAZOLE 2% CREAM 15 GM (NIZORAL) TP SCH ×2 (09:04→20:39)
[2016-10-12] MEDS: LORATADINE (CLARITIN) 10 MG TAB PO SCH (09:05)
[2016-10-12] MEDS: VENlafaxine XR 75 MG (EFFEXOR XR) CAP PO SCH (09:05)
[2016-10-12] MEDS: MAGNESIUM OXIDE (MAG-OX)400 MG TAB PO SCH (09:05)
[2016-10-12] MEDS: BACLOFEN 10 MG (LIORESAL) TAB PO SCH ×3 (09:05→20:40)
[2016-10-12] MEDS: PANTOPRAZOLE 40 MG (PROTONIX) TAB PO SCH ×2 (09:05→20:40)
[2016-10-12] MEDS: FUROSEMIDE 40 MG (LASIX) TAB PO SCH (09:05)
[2016-10-12] MEDS: LACTOBACILLUS Acidoph/Bulgar (LACTINEX/FLORANEX) TAB PO SCH (09:05)
[2016-10-12] MEDS: ASPIRIN E.C. 81 MG (ECOTRIN) TAB PO SCH (09:05)
[2016-10-12] MEDS ORDERED: NORMAL SALINE (BAXTER MINI) 100 ML IV ONE ×2 (11:10→17:11)
[2016-10-12] MEDS ORDERED: MEROPENEM 500 MG VIAL (MERREM) IV ONE ×2 (11:10→17:11)
--- NOTE | 2016-10-12 12:46 | Progress Note-Hospitalist ---
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 She reports she is feeling much better and has no requests that this time. Physical exam: She is alert and oriented. Lungs are clear to auscultation. CV is regular without murmur. Abdomen is obese and nontender. Extremities show bilateral foot drop. There is minimal edema. Impression: Enterococcus faecalis urinary tract infection. 2.Pseudomonas septicemia. Plan: Discharge tomorrow after completion of antibiotic therapy. [facility] Labs Laboratory Tests 10/11/16 05:15 10/12/16 06:20 RYAN VELASCO MD Oct 12, 2016 12:46
[2016-10-12 16:53] VITALS: BP 165/81
[2016-10-12] MEDS: amLODIPine 5 MG (NORVASC) TAB PO SCH (17:15)
[2016-10-12] MEDS: BENAZEPRIL 20 MG (LOTENSIN) TAB PO SCH (17:15)
[2016-10-12] MEDS: SIMvastatin 10 MG (ZOCOR) TAB PO SCH (20:40)
[2016-10-13] VITALS: BP 170/79
[2016-10-13] MEDS: MEROPENEM 500 MG in NORMAL SALINE (BAXTER MINI) 100 ML IV SCH ×2 (00:47→05:22)
[2016-10-13] MEDS: LEVOTHYROXINE 150 MCG (LEVOTHROID) TAB PO SCH (04:46)
[2016-10-13] MEDS: MULTIVIT W/MINERALS TAB (THERAGRAN M) PO SCH (05:22)
[2016-10-13] MEDS: KCL 20 MEQ TAB (K-DUR) PO SCH (05:22)
[2016-10-13 05:52] LABS: BASOPHILS # (AUTO) 0.1 10^3/uL (0.0-0.1); BASOPHILS % (AUTO) 1 % (0-10); EOSINOPHILS # (AUTO) 1.1 10^3/uL (0.0-0.3); EOSINOPHILS % (AUTO) 11 % (0-10); LYMPHOCYTES # (AUTO) 0.9 X 10^3 (1.0-4.0); LYMPHOCYTES % (AUTO) 9 % (12-44); MEAN CORPUSCULAR HEMOGLOBIN 24 PG (25-34); MEAN CORPUSCULAR HGB CONC 31 G/DL (32-36); MEAN CORPUSCULAR VOLUME 78 FL (80-99); MEAN PLATELET VOLUME 10.6 FL (7.4-10.4); MONOCYTES # (AUTO) 0.6 X 10^3 (0.0-1.0); MONOCYTES % (AUTO) 6 % (0-12); NEUTROPHILS # (AUTO) 7.6 X 10^3 (1.8-7.8); NEUTROPHILS % (AUTO) 73 % (42-75); PLATELET COUNT 229 10^3/uL (130-400); RED BLOOD COUNT 3.94 10^6/uL (4.35-5.85); RED CELL DISTRIBUTION WIDTH 17.9 % (10.0-14.5); WHITE BLOOD COUNT 10.4 10^3/uL (4.3-11.0)
[2016-10-13 06:09] LABS: ANION GAP 10 MMOL/L (5-14); BLOOD UREA NITROGEN 17 MG/DL (7-18); BUN/CREATININE RATIO 21; CALCIUM 7.8 MG/DL (8.5-10.1); CARBON DIOXIDE 25 MMOL/L (21-32); CHLORIDE 110 MMOL/L (98-107); GFR ESTIMATED > 60; GLUCOSE 91 MG/DL (70-105); POTASSIUM 3.9 MMOL/L (3.6-5.0); SODIUM 145 MMOL/L (135-145)
[2016-10-13] MEDS: RT-ALBUTEROL SULF 2.5 MG/3 ML PRE-MIX VIAL INH SCH (07:05)
[2016-10-13 08:00] VITALS: BP 131/63
[2016-10-13] MEDS: MAGNESIUM OXIDE (MAG-OX)400 MG TAB PO SCH (08:03)
[2016-10-13] MEDS: FUROSEMIDE 40 MG (LASIX) TAB PO SCH (08:03)
[2016-10-13] MEDS: PANTOPRAZOLE 40 MG (PROTONIX) TAB PO SCH (08:03)
[2016-10-13] MEDS: ASPIRIN E.C. 81 MG (ECOTRIN) TAB PO SCH (08:03)
[2016-10-13] MEDS: BACLOFEN 10 MG (LIORESAL) TAB PO SCH ×2 (08:03→13:00)
[2016-10-13] MEDS: LACTOBACILLUS Acidoph/Bulgar (LACTINEX/FLORANEX) TAB PO SCH (08:04)
[2016-10-13] MEDS: PREGABALIN 100 MG (LYRICA) CAPSULE PO SCH ×2 (08:04→13:00)
[2016-10-13] MEDS: KETOCONAZOLE 2% CREAM 15 GM (NIZORAL) TP SCH (08:04)
[2016-10-13] MEDS: ZINC OXIDE 16% OINT (BUTT PASTE) 113 GM TUBE TP SCH ×2 (08:04→13:18)
[2016-10-13] MEDS: VENlafaxine XR 75 MG (EFFEXOR XR) CAP PO SCH (08:04)
[2016-10-13] MEDS: LORATADINE (CLARITIN) 10 MG TAB PO SCH (08:04)
[2016-10-13] MEDS: NS IV 1000 ML 1,000 ML IV SCH (08:14)
[2016-10-13] MEDS ORDERED: FUROSEMIDE 40 MG/4 ML INJ (LASIX) IVP NR (09:13)
--- NOTE | 2016-10-13 10:07 | Discharge Summary-Hospitalist ---
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 States she had a fever the past 3 days and increased pain right flank. Dr. Perez Review: Dr. Perez states that pt is on multiple antibiotics, and has significant cellulitis. Lactic acid is likely rising so will recheck. Pt received fluid bolus. Patient Interview: Pt was very sleepy during visit. No details obtained. Pt states that she is receiving pain medication. Physical exam was stable. Scribed by Charlie Steen under the direct supervision of Dr. Toth. Notes from 10/13/2016: Chart Review: No fever Vitals stable BP: Elevated at 170/79 WBC: 10 Hgb: 9.4 K+: 3.9 SW Review: SW states that pt will likely not be skilled upon DC, and will return to [place] today. Patient Interview: Dr. Toth discusses plans for DC. Pt states that she is comfortable with DC today. Dr. Toth informs pt that she will be placed on Lasix, and will receive a new prescription of pain meds. Pt states that colostomy is working well. Physical exam was stable. Plan: DC IVF Initiate Lasix 40 mg IV once to treat volume overload causing elevated BP New pain med prescription Prescription for cream BID Scribed by Charlie Steen under the direct supervision of Dr. Toth. Hospital course: The patient had an uneventful course she completed meropenem antibiotic along with vancomycin while in swing bed status for the right sided flank cellulitis in addition to Pseudomonas bacteremia severe sepsis and enterococcus UTI. Due to her allergy list meropenem and vancomycin were chosen and continued until course was completed. She is afebrile receive 2 units of packed red blood cells during the hospital course and received IV fluid resuscitation on the ICU due to hypotension. She did well recovered on acute status and was back to her baseline sent back to the [facility] but her prognosis is very poor considering her paralysis from vertebral artery thrombosis remotely and suprapubic catheter and colostomy diverting type and overall poor quality of life. Discharge Summary Discharge Physical Examination Allergies: Coded Allergies: Penicillins (Verified Allergy, Unknown, PT HAS RECEIVED ROCEPHIN & MEROPENEM W/O ISSUE, 10/05/16) butorphanol tartrate (Verified Allergy, Unknown, 10/05/16) ciprofloxacin (Verified Allergy, Unknown, 10/05/16) ciprofloxacin HCl (Verified Allergy, Unknown, 10/05/16) hydromorphone HCl (Verified Allergy, Unknown, 10/05/16) meperidine HCl (Verified Allergy, Unknown, 10/05/16) morphine (Verified Allergy, Unknown, 10/05/16) tetracycline (Verified Allergy, Unknown, 10/05/16) Vitals & I&Os Vital Signs Date Time Temp Pulse Resp B/P Pulse Ox O2 Delivery O2 Flow Rate FiO2 10/13/16 08:00 98.8 79 18 131/63 91 Room Air 10/12/16 19:24 2.00 10/09/16 14:58 2 Hospital Course Labs (last 24 hrs) Laboratory Tests 10/13/16 05:25: Anion Gap 10, BUN/Creatinine Ratio 21, Basophils # (Auto) 0.1, Basophils (%) ( Auto) 1, Blood Urea Nitrogen 17, Calcium Level 7.8L, Carbon Dioxide Level 25, Chloride Level 110H, Creatinine 0.80, Eosinophils # (Auto) 1.1H, Eosinophils (% ) (Auto) 11H, Estimat Glomerular Filtration Rate > 60, Glucose Level 91, Hematocrit 31L, Hemoglobin 9.4L, Lymphocytes # (Auto) 0.9L, Lymphocytes (%) ( Auto) 9L, Mean Corpuscular Hemoglobin 24L, Mean Corpuscular Hemoglobin Concent 31L, Mean Corpuscular Volume 78L, Mean Platelet Volume 10.6H, Monocytes # (Auto ) 0.6, Monocytes (%) (Auto) 6, Neutrophils # (Auto) 7.6, Neutrophils (%) (Auto) 73, Platelet Count 229, Potassium Level 3.9, Red Blood Count 3.94L, Red Cell Distribution Width 17.9H, Sodium Level 145, White Blood Count 10.4 Microbiology 10/05/16 Blood Culture - Preliminary, Resulted Pseudomonas Aeruginosa 10/06/16 MRSA Screen - Final, Complete MRSA not isolated 10/05/16 Urine Culture - Final, Complete Enterococcus Faecalis Pending Labs Laboratory Tests 10/13/16 05:25: Anion Gap 10, BUN/Creatinine Ratio 21, Basophils # (Auto) 0.1, Basophils (%) ( Auto) 1, Blood Urea Nitrogen 17, Calcium Level 7.8, Carbon Dioxide Level 25, Chloride Level 110, Creatinine 0.80, Eosinophils # (Auto) 1.1, Eosinophils (%) ( Auto) 11, Estimat Glomerular Filtration Rate > 60, Glucose Level 91, Hematocrit 31, Hemoglobin 9.4, Lymphocytes # (Auto) 0.9, Lymphocytes (%) (Auto) 9, Mean Corpuscular Hemoglobin 24, Mean Corpuscular Hemoglobin Concent 31, Mean Corpuscular Volume 78, Mean Platelet Volume 10.6, Monocytes # (Auto) 0.6, Monocytes (%) (Auto) 6, Neutrophils # (Auto) 7.6, Neutrophils (%) (Auto) 73, Platelet Count 229, Potassium Level 3.9, Red Blood Count 3.94, Red Cell Distribution Width 17.9, Sodium Level 145, White Blood Count 10.4 Discharge Home Medications: Active Scripts Active Hydrocodon -Acetaminophen 5-325 (Hydrocodone/Acetaminophen) 1 Each Tablet 1 Tab PO Q8H PRN Reported Restasis (Cyclosporine) 1 Each Droperette 1 Drop OU BID Fluconazole 150 Mg Tablet 150 Mg PO FR 4 WEEK SUPPLY START DATE 10-01-16 END DATE 10-29-16 Ketoconazole 15 Gm Cream..g. TP BID 21 Days START DATE 09-30-16 END DATE 10-21-16 Benzonatate 100 Mg Capsule 100 Mg PO Q6H PRN Zofran (Ondansetron HCl) 4 Mg Tab 4 Mg PO PRN PRN Tylenol (Acetaminophen) 325 Mg Tablet 650 Mg PO Q4H PRN TAKES 2 (325MG) TABLETS Miconazole Nitrate 10 Gm Powder TOP PRN PRN APPLY TO GROIN AND PERINEAL AREA Eucerin Creme (Mineral Oil/Petrolatum,White) 120 Gm Cream..g. TP PRN PRN Levothyroxine Sodium 150 Mcg Tablet 150 Mcg PO 0500 Boudreauxs (Zinc Oxide) 28 Gm Oint TP TID APPLY TO COCCYX Venlafaxine HCl ER (Venlafaxine HCl) 75 Mg Cap.er.24h 75 Mg PO DAILY Potassium Chloride 20 Meq Tablet.er 20 Meq PO DAILY Cranberry (Cranberry Fruit) 450 Mg Tablet 450 Mg PO DAILY Nexium (Esomeprazole Magnesium) 40 Mg Cap 40 Mg PO BID Stress Formula with Zinc Tab (Multivits,Stress Formula/Zinc) 1 Each Tablet 1 Tab PO DAILY Aspir 81 (Aspirin) 81 Mg Tablet.dr 81 Mg PO DAILY Acidophilus (Lactobacillus Acidophilus) 1 Each Capsule 1 Cap PO DAILY Canasa (Mesalamine) 1,000 Mg Supp.rect 1 Supp RC BID Fexofenadine HCl 60 Mg Tablet 60 Mg PO DAILY Pravachol (Pravastatin Sodium) 20 Mg Tablet 20 Mg PO DAILY Lyrica (Pregabalin) 200 Mg Capsule 200 Mg PO TID Lioresal Tablet (Baclofen) 10 Mg Tab 10 Mg PO TID Furosemide 40 Mg Tablet 40 Mg PO DAILY Lialda (Mesalamine) 1.2 Gm Tablet.dr 1.2 Gm PO DAILY Mag Ox 400 (Magnesium Oxide) 400 Mg Tablet 400 Mg PO DAILY Lotrel 5-40 Mg Capsule (Amlodipine/Benazepril HCl) 1 Each Capsule 1 Cap PO 1800 HOLD IF SYSTOLIC BP <90 OR PULSE <60 Instructions to patient/family Please see electonic discharge instructions given to patient. Clinical Quality Measures DVT/VTE Risk/Contraindication: Risk Factor Score Per Nursin RFS Level Per Nursing on Admit: 4+=Very High KESHA TOTH DO Oct 13, 2016 10:07
[2016-10-13] MEDS ORDERED: HYDR-3812 PO (10:43)
--- NOTE | 2016-10-13 10:45 | Discharge Instructions ---
Discharge Instructions Discharge Medications New, Converted or Re-Newed RX: RX on Chart Continued Medications: Acetaminophen (Tylenol) 325 Mg Tablet 650 MG PO Q4H TAKES 2 (325MG) TABLETS PRN PAIN TAB Amlodipine Besylate/Benazepril (Lotrel 5-40 Mg Capsule) 1 Each Capsule 1 CAP PO 1800 HOLD IF SYSTOLIC BP <90 OR PULSE <60 CAP Aspirin (Aspir 81) 81 Mg Tablet.dr 81 MG PO DAILY TAB Baclofen (Lioresal Tablet) 10 Mg Tab 10 MG PO TID TAB Benzonatate (Benzonatate) 100 Mg Capsule 100 MG PO Q6H PRN COUGH Cranberry Fruit (Cranberry) 450 Mg Tablet 450 MG PO DAILY TAB Cyclosporine (Restasis) 1 Each Droperette 1 DROP OU BID DROP Esomeprazole Magnesium (Nexium) 40 Mg Cap 40 MG PO BID CAP Fexofenadine HCl (Fexofenadine HCl) 60 Mg Tablet 60 MG PO DAILY TAB Fluconazole (Fluconazole) 150 Mg Tablet 150 MG PO Fr 4 WEEK SUPPLY START DATE 10-01-16 END DATE 10-29-16 TAB Furosemide (Furosemide) 40 Mg Tablet 40 MG PO DAILY TAB Hydrocodone/Acetaminophen (Hydrocodon -Acetaminophen 5-325) 1 Each Tablet 1 TAB PO Q8H PRN PAIN #30 TAB (This prescription has been renewed) Ketoconazole (Ketoconazole) 15 Gm Cream..g. TP BID START DATE 09-30-16 END DATE 10-21-16 Days 21 TUBE Lactobacillus Acidophilus (Acidophilus) 1 Each Capsule 1 CAP PO DAILY CAP Levothyroxine Sodium (Levothyroxine Sodium) 150 Mcg Tablet 150 MCG PO 0500 TAB Magnesium Oxide (Mag Ox 400) 400 Mg Tablet 400 MG PO DAILY TAB Mesalamine (Lialda) 1.2 Gm Tablet.dr 1.2 GM PO DAILY TAB Mesalamine (Canasa) 1,000 Mg Supp.rect 1 SUPP RC BID EA Miconazole Nitrate (Miconazole Nitrate) 10 Gm Powder TOP PRN APPLY TO GROIN AND PERINEAL AREA PRN CANDIDIASIS OF SKIN AND NAILS EA Mineral Oil/Petrolatum,White (Eucerin Creme) 120 Gm Cream..g. TP PRN PRN RASH TUBE Multivits,Stress Formula/Zinc (Stress Formula with Zinc Tab) 1 Each Tablet 1 TAB PO DAILY TAB Ondansetron HCl (Zofran) 4 Mg Tab 4 MG PO PRN PRN NAUSEA TAB Potassium Chloride (Potassium Chloride) 20 Meq Tablet.er 20 MEQ PO DAILY TAB Pravastatin Sodium (Pravachol) 20 Mg Tablet 20 MG PO DAILY TAB Pregabalin (Lyrica) 200 Mg Capsule 200 MG PO TID CAP Venlafaxine HCl (Venlafaxine HCl ER) 75 Mg Cap.er.24h 75 MG PO DAILY CAP Zinc Oxide (Boudreauxs) 28 Gm Oint TP TID APPLY TO COCCYX TUBE Patient Instructions Goal/Follow Up Appt: Dr Cole at [place] rounds in 2 weeks Activity & Diet Discharge Diet: No Restrictions Activity as Tolerated: Yes KESHA TOTH DO Oct 13, 2016 10:45
[2016-12-21] MEDS ORDERED: MERO500V3 IV (08:47)
[2016-12-21] MEDS ORDERED: HYDR-3812 PO (08:47)
== END 2016-10-13 13:15 | DRG 872 ==
LOC: EDUNIT# 21:25 → ER 21:27 → ICU 10-06 00:39 → 4TH 10-07 17:00
PROVIDERS: ADMIT Internal Medicine; ATTEND Internal Medicine
DX: A41.52 Sepsis due to Pseudomonas (principal); R65.20 Severe sepsis without septic shock; L03.115 Cellulitis of right lower limb; T83.510A Infection and inflammatory reaction due to cystostomy catheter, initial encounter; N39.0 Urinary tract infection, site not specified; B95.2 Enterococcus as the cause of diseases classified elsewhere; I12.9 Hypertensive chronic kidney disease with stage 1 through stage 4 chronic kidney disease, or unspecified chronic kidney disease; N18.9 Chronic kidney disease, unspecified; N17.9 Acute kidney failure, unspecified; E66.9 Obesity, unspecified; Z68.42 Body mass index [BMI] 45.0-49.9, adult; G82.20 Paraplegia, unspecified; F32.9 Major depressive disorder, single episode, unspecified; E87.5 Hyperkalemia; Z93.50 Unspecified cystostomy status; N31.9 Neuromuscular dysfunction of bladder, unspecified; E03.9 Hypothyroidism, unspecified; J44.9 Chronic obstructive pulmonary disease, unspecified; D64.9 Anemia, unspecified; E78.00 Pure hypercholesterolemia, unspecified; Z93.3 Colostomy status; Z86.69 Personal history of other diseases of the nervous system and sense organs; I69.369 Other paralytic syndrome following cerebral infarction affecting unspecified side
CPT/HCPCS: 36415; 71010; 71250; 74176; 80048; 80053; 80202; 81000; 82274; 83605; 83735; 84100; 85007; 85025; 85027; 85610; 85730; 86141; 86850; 86900; 86901; 86920; 87040; 87077; 87081; 87088; 87186; 94640; 94760; 96361; 96365; 96366; 96375

== ENCOUNTER → 2016-11-21 | Outpatient (CLI) | payer MEDICARE, MEDICAID ==
[~2016-11-21] MED LIST changes: +FEXO-46 PO; +FLUC100T PO; +FLUC100T6 PO; +FLUC150T2 PO; +IPRA3AMP INH; +KETO15CR TP; +MAGN500C15 PO; +MERO500V3 IV; +NYST15CR TP; +PHEN57OI3 RC; +SCOP1PAT TOP; +TRIA15CR TP; +Z-GUARD TOP
--- OUTSIDE RECORDS SUMMARY | 2016-11-21 11:28 | XMS REPORT | Continuity of Care Document ---
Author Author [facility] Organization [facility] Address Unknown Phone Unavailable Care Team Providers Care Jinrikisha Driver Name Role Phone PCP Unavailable Source Comments Some departments are not documenting in the electronic medical record. If you do not see the information that you expected, contact Release of Information in the Health Information Management department at [phone] for further assistance in locating additional records.[facility] Active Allergies and Adverse Reactions Allergen [...]
[2016-11-21 11:50] LABS: BILIRUBIN,URINE NEGATIVE (NEGATIVE); KETONES,URINE NEGATIVE (NEGATIVE); LEUKOCYTE ESTERASE ,URINE 3+ (NEGATIVE); NITRITE,URINE NEGATIVE (NEGATIVE); PH,URINE 5 (5-9); PROTEIN,URINE 3+ (NEGATIVE); UROBILINOGEN,URINE NORMAL (NORMAL)
[2016-11-21 11:51] LABS: WBC,URINE TNTC /HPF
== END ==
LOC: LABNPT 11:24
PROVIDERS: ATTEND Family Medicine
DX: R39.9 Unspecified symptoms and signs involving the genitourinary system (principal)
CPT/HCPCS: 81000; 87088; 87186

== ENCOUNTER 2016-11-22 14:31 | Inpatient (IN) | payer MEDICARE, MEDICAID ==
[~2016-11-22] VITALS: Ht 165.1 cm; Wt 117.9 kg
[~2016-11-22 14:31] MED LIST changes: -FEXO-46 PO; -FLUC100T PO; -FLUC100T6 PO; -IPRA3AMP INH; -MAGN500C15 PO; -MERO500V3 IV; -NYST15CR TP; -PHEN57OI3 RC; -SCOP1PAT TOP; -TRIA15CR TP; -Z-GUARD TOP
--- OUTSIDE RECORDS SUMMARY | 2016-11-22 14:36 | XMS REPORT | Continuity of Care Document ---
Author Author [facility] Organization [facility] Address Unknown Phone Unavailable Care Team Providers Care Organic Section Technical Lead Name Role Phone PCP Unavailable Source Comments Some departments are not documenting in the electronic medical record. If you do not see the information that you expected, contact Release of Information in the Health Information Management department at [phone] for further assistance in locating additional records.[facility] Active Allergies and Adverse Reactions Allergen [...]
[2016-11-22] MEDS ORDERED: NS IV 1000 ML 1,000 ML IV ONE ×2 (15:17→16:28)
--- NOTE | 2016-11-22 15:27 | ED General ---
General Chief Complaint: Fever-Adult/Adol Stated Complaint: FEVER Nursing Triage Note: PT PRESENTS TO ED VIA EMS FROM [facility]. PT RECENTLY DIAGNOSED WITH UTI BUT HAS NOT RECIENVED ANTIBIOTIC TX THEY WERE WAITING FOR OFFICIAL CULTURES TO COME BACK. PT DEVELOPED FEVER TODAY AND REQUESTED TO BE BROUGHT TO ED FOR SESPSIS EVALUATION. PT REPORTS NOT FEELING WELL X 2 DAYS Nursing Sepsis Screen: Possible Sepsis Risk Source of Information: Patient Exam Limitations: No Limitations History of Present Illness Time Seen by Provider: 15:03 Initial Comments 71 yo female patient presents to the ED via EMS [facility] for UTI and possible sepsis. Patient was seen by Dr. Houser for UTI on Tuesday, but was not put on antibiotics. Douglas reportedly wanted to wait for culture results before starting patient on antibiotics. Patient reportedly started having a fever yesterday. Patient also c/o rash of the perineum and groin. Timing/Duration: 3-4 Days, Getting Worse Modifying Factors: worse with Other (palpation) Allergies and Home Medications Allergies Coded Allergies: Penicillins (Verified Allergy, Unknown, PT HAS RECEIVED ROCEPHIN & MEROPENEM W/O ISSUE, 10/05/16) butorphanol tartrate (Verified Allergy, Unknown, 10/05/16) ciprofloxacin (Verified Allergy, Unknown, 10/05/16) ciprofloxacin HCl (Verified Allergy, Unknown, 10/05/16) hydromorphone HCl (Verified Allergy, Unknown, 10/05/16) meperidine HCl (Verified Allergy, Unknown, 10/05/16) morphine (Verified Allergy, Unknown, 10/05/16) tetracycline (Verified Allergy, Unknown, 10/05/16) Home Medications Acetaminophen 325 Mg Tablet 650 MG PO Q4H PRN PRN PAIN (Reported) TAKES 2 (325MG) TABLETS Amlodipine Besylate/Benazepril 1 Each Capsule 1 CAP PO 1800 (Reported) HOLD IF SYSTOLIC BP <90 OR PULSE <60 Aspirin 81 Mg Tablet.dr 81 MG PO DAILY (Reported) Baclofen 10 Mg Tab 10 MG PO TID (Reported) Benzonatate 100 Mg Capsule 100 MG PO Q6H PRN PRN COUGH (Reported) Cranberry Fruit 450 Mg Tablet 450 MG PO DAILY (Reported) Cyclosporine 1 Each Droperette 1 DROP OU BID (Reported) Esomeprazole Magnesium 40 Mg Cap 40 MG PO BID (Reported) Fexofenadine HCl 60 Mg Tablet 60 MG PO DAILY (Reported) Fluconazole 150 Mg Tablet 150 MG PO Fr (Reported) 4 WEEK SUPPLY START DATE 10-01-16 END DATE 10-29-16 Furosemide 40 Mg Tablet 40 MG PO DAILY (Reported) Hydrocodone/Acetaminophen 1 Each Tablet #30 1 TAB PO Q8H PRN PRN PAIN Prescribed by: KESHA TOTH on 10/13/16 1043 Ketoconazole 15 Gm Cream..g. 21Days TP BID (Reported) START DATE 09-30-16 END DATE 10-21-16 Lactobacillus Acidophilus 1 Each Capsule 1 CAP PO DAILY (Reported) Levothyroxine Sodium 150 Mcg Tablet 150 MCG PO 0500 (Reported) Magnesium Oxide 400 Mg Tablet 400 MG PO DAILY (Reported) Mesalamine 1.2 Gm Tablet.dr 1.2 GM PO DAILY (Reported) Mesalamine 1,000 Mg Supp.rect 1 SUPP RC BID (Reported) Miconazole Nitrate 10 Gm Powder TOP PRN PRN PRN CANDIDIASIS OF SKIN AND NAILS ( Reported) APPLY TO GROIN AND PERINEAL AREA Mineral Oil/Petrolatum,White 120 Gm Cream..g. TP PRN PRN PRN RASH (Reported) Multivits,Stress Formula/Zinc 1 Each Tablet 1 TAB PO DAILY (Reported) Ondansetron HCl 4 Mg Tab 4 MG PO PRN PRN PRN NAUSEA (Reported) Potassium Chloride 20 Meq Tablet.er 20 MEQ PO DAILY (Reported) Pravastatin Sodium 20 Mg Tablet 20 MG PO DAILY (Reported) Pregabalin 200 Mg Capsule 200 MG PO TID (Reported) Venlafaxine HCl 75 Mg Cap.er.24h 75 MG PO DAILY (Reported) Zinc Oxide 28 Gm Oint TP TID (Reported) APPLY TO COCCYX Constitutional: chills fever malaise EENTM: no symptoms reported Respiratory: No cough, No phlegm, No short of breath Cardiovascular: No chest pain, No palpitations, No syncope Gastrointestinal: No abdominal pain, No diarrhea, loss of appetiteNo nausea, No vomiting Genitourinary: see HPINo decreased output, No dysuria, No frequency, No hematuria, pain Musculoskeletal: No back pain Skin: rash (groin and perineum) Psychiatric/Neurological: No Symptoms Reported All Other Systems Reviewed Negative Unless Noted: Yes (Negative excepted noted.) Past Wpizuym-Gzmwge-Nvrrvc Hx Patient Social History Alcohol Use: Denies Use Recreational Drug Use: No Smoking Status: Never a Smoker 2nd Hand Smoke Exposure: No Recent Foreign Travel: No Contact w/Someone Who Travel: No Recent Infectious Disease Expo: No Recent Hopitalizations: No Immunizations Up To Date Tetanus Booster (TDap): Unknown PED Vaccines UTD: No Date of Pneumonia Vaccine: Dec 09, 2011 Date of Influenza Vaccine: Aug 18, 2016 Seasonal Allergies Seasonal Allergies: No Surgeries HX Surgeries: Yes (COLOSTOMY;SUPRAPUBIC CATHETER) Surgeries: Abdominal, Bladder Surgery, Bowel Surgery, Hysterectomy Respiratory Hx Respiratory Disorders: Yes Respiratory Disorders: Asthma, Pneumonia, COPD Cardiovascular Hx Cardiac Disorders: Yes Cardiac Disorders: Chronic Edema/Swelling, High Cholesterol, Hypertension Neurological Hx Neurological Disorders: Yes (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"- GENERALIZED WEAKNESS) Endocrine Hx Endocrine Disorders: Yes (MYXEDEMA COMA) Endocrine Disorders: Hypothyroidsim HEENT HX ENT Disorders: No Loss of Vision: Denies Hearing Impairment: Denies Cancer Hx Cancer: Yes Cancer: Breast Psychosocial Hx Psychiatric Problems: Yes (PSYCHOSIS) Behavioral Health Disorders: Depression Integumentary HX Skin/Integumentary Disorder: Yes (athletes foot bilat feet) Skin/Integumentary Disorders: Recent Skin Changes Blood Transfusions Hx Blood Disorders: Yes (ANEMIA) Adverse Reaction to a Blood Tr: No Reviewed Nursing Assessment Reviewed/Agree w Nursing PMH: Yes Family Medical History Significant Family History: No Pertinent Family Hx Family Medial History: Patient reports no known family medical history. Physical Exam-Suspected Sepsis Physical Exam Vital Signs Vital Sign - Last 12Hours 11/22/16 15:01 Temp 100.4 Pulse 105 Resp 16 B/P 111/53 Pulse Ox 94 O2 Delivery Room Air Capillary Refill : Less Than 3 Seconds Blood Pressure Mean: 72 General Appearance: No Apparent Distress WD/WN Respiratory: Lungs Clear Normal Breath Sounds No Respiratory Distress Cardiovascular: Regular Rate, Rhythm No Murmur Gastrointestinal: Normal Bowel Sounds Non Tender SoftNo Distended Extremity: Normal Capillary Refill Non Tender Pedal Edema (3+ pedal edema bilat) Neurologic/Psychiatric: Alert Oriented x3 Other (flat, depressed affect.) Skin: normal color warm/dry rash (erythematous, scaly rash of the bilat groin adn perineum consistent with tinea. denies drainage.) Progress/Results/Core Measures Suspected Sepsis Recent Fever Within 48 Hours: Yes Infection Criteria Present: Documented Infection New/Unexplained Altered Menta: No Sepsis Screen: Possible Sepsis Risk Sepsis Diagnosis: SIRS Temperature:100.4 Pulse: 105 Respiratory Rate: 16 Laboratory Tests 11/22/16 14:55: White Blood Count 16.2H Blood Pressure 111 /53 Mean: 72 Laboratory Tests 11/22/16 14:55: Creatinine 1.49H, INR Comment 1.1, Platelet Count 174, Total Bilirubin 0.5 Results/Orders Lab Results Laboratory Tests Test 11/22/16 14:55 11/22/16 16:00 Range/Units Activated Partial Thromboplast Time 36 H 24-35 SEC Alanine Aminotransferase (ALT/SGPT) 36 0-55 U/L Albumin 3.9 3.2-4.5 G/DL Alkaline Phosphatase 147 H 40-136 U/L Anion Gap 13 5-14 MMOL/L Anisocytosis SLIGHT Aspartate Amino Transf (AST/SGOT) 38 H 5-34 U/L BUN/Creatinine Ratio 27 Band Neutrophils 0 % Basophilic Stippling SLIGHT Basophils # (Auto) 0.1 0.0-0.1 10^3/uL Basophils % (Manual) 0 % Basophils (%) (Auto) 0 0-10 % Blood Urea Nitrogen 40 H 7-18 MG/DL Calcium Level 8.8 8.5-10.1 MG/DL Carbon Dioxide Level 20 L 21-32 MMOL/L Chloride Level 103 98-107 MMOL/L Creatinine 1.49 H 0.60-1.30 MG/DL Eosinophils # (Auto) 0.3 0.0-0.3 10^3/uL Eosinophils % (Manual) 0 % Eosinophils (%) (Auto) 2 0-10 % Estimat Glomerular Filtration Rate 34 Glucose Level 153 H 70-105 MG/DL Hematocrit 27 L 35-52 % Hemoglobin 8.6 L 11.5-16.0 G/DL INR Comment 1.1 0.8-1.4 Lactic Acid Level 1.2 0.5-2.0 MMOL/L Lymphocytes # (Auto) 1.6 1.0-4.0 X 10^3 Lymphocytes % (Manual) 12 % Lymphocytes (%) (Auto) 10 L 12-44 % Mean Corpuscular Hemoglobin 25 25-34 PG Mean Corpuscular Hemoglobin Concent 32 32-36 G/DL Mean Corpuscular Volume 78 L 80-99 FL Mean Platelet Volume 11.0 H 7.4-10.4 FL Monocytes # (Auto) 1.6 H 0.0-1.0 X 10^3 Monocytes % (Manual) 6 % Monocytes (%) (Auto) 10 0-12 % Neutrophils # (Auto) 12.6 H 1.8-7.8 X 10^3 Neutrophils % (Manual) 82 % Neutrophils (%) (Auto) 78 H 42-75 % Platelet Count 174 130-400 10^3/uL Potassium Level 5.2 H 3.6-5.0 MMOL/L Prothrombin Time 13.4 12.2-14.7 SEC Red Blood Count 3.46 L 4.35-5.85 10^6/uL Red Cell Distribution Width 19.6 H 10.0-14.5 % Sodium Level 136 135-145 MMOL/L Spherocytes SLIGHT Total Bilirubin 0.5 0.1-1.0 MG/DL Total Protein 7.4 6.4-8.2 G/DL Troponin I < 0.30 <0.30 NG/ML White Blood Count 16.2 H 4.3-11.0 10^3/uL Urine Bacteria MODERATE H /HPF Urine Bilirubin NEGATIVE NEGATIVE Urine Casts NONE /LPF Urine Clarity VERY CLOUDY H Urine Color YELLOW Urine Crystals NONE /LPF Urine Culture Indicated YES Urine Glucose (UA) NEGATIVE NEGATIVE Urine Ketones NEGATIVE NEGATIVE Urine Leukocyte Esterase 3+ H NEGATIVE Urine Mucus NEGATIVE /LPF Urine Nitrite NEGATIVE NEGATIVE Urine Protein 2+ H NEGATIVE Urine RBC 25-50 H /HPF Urine RBC (Auto) 5+ H NEGATIVE Urine Specific [employer] 1.015 L 1.016-1.022 Urine Urobilinogen NORMAL NORMAL MG/DL Urine WBC >100 H /HPF Urine pH 6.5 5-9 My Orders Orders-WIL PINEDA Cbc With Automated Diff (11/22/16 15:17) Comprehensive Metabolic Panel (11/22/16 15:17) Lactic Acid Analyzer (11/22/16 15:17) Blood Culture (11/22/16 15:17) Sputum Culture (11/22/16 15:17) Ua Culture If Indicated (11/22/16 15:17) Protime With Inr (11/22/16 15:17) Partial Thromboplastin Time (11/22/16 15:17) Chest 1 View, Ap/Pa Only (11/22/16 15:17) O2 (11/22/16 15:17) Saline Lock/Iv-Start (11/22/16 15:17) Saline Lock/Iv-Start (11/22/16 15:17) Ekg Tracing (11/22/16 15:17) Troponin I (11/22/16 15:17) Vital Signs Adult Sepsis Patie Q1HR (11/22/16 15:17) Vancomycin Iv Add-Collins (Vancomycin Iv (11/22/16 15:30) Ns Iv 1000 Ml (Sodium Chloride 0.9%) (11/22/16 15:17) Meropenem (Merrem 1000 Mg) (11/22/16 15:30) Manual Differential (11/22/16 14:55) Urine Culture (11/22/16 16:00) Fentanyl Injection (Sublimaze Injection (11/22/16 16:28) Ns Iv 1000 Ml (Sodium Chloride 0.9%) (11/22/16 16:28) Heart Healthy (11/22/16 Dinner) Medications Given in ED Current Medications Medications Dose Ordered Sig/Briana Route Start Time Stop Time Status Last Admin Dose Admin Meropenem/Sodium Chloride 100 ml @ 200 mls/hr ONCE ONCE IV 11/22/16 15:30 11/22/16 15:59 DC 11/22/16 15:56 200 MLS/HR Sodium Chloride 1,000 ml @ 0 mls/hr Q0M ONCE IV 11/22/16 15:17 11/22/16 15:25 DC 11/22/16 15:37 0 MLS/HR Vital Signs/I&O Vital Sign - Last 12Hours 11/22/16 11/22/16 11/22/16 11/22/16 15:01 17:50 18:10 18:10 Temp 100.4 Pulse 105 91 Resp 16 18 B/P 111/53 Pulse Ox 94 96 O2 Delivery Room Air Nasal Cannula O2 Flow Rate 2.00 2.00 11/22/16 11/22/16 11/22/16 11/22/16 18:10 19:04 20:05 20:15 Temp 102.6 101.5 101.5 Pulse 141 Resp 22 B/P 137/60 Pulse Ox 91 O2 Delivery Nasal Cannula Nasal Cannula O2 Flow Rate 2.00 2.00 11/22/16 11/22/16 22:58 23:00 Temp 100.2 100.2 Pulse 80 80 Resp 19 19 B/P 116/57 116/57 Pulse Ox 90 90 O2 Delivery Nasal Cannula Nasal Cannula O2 Flow Rate 2.00 2.00 Capillary Refill : Less Than 3 Seconds Blood Pressure Mean: 72 ECG Initial ECG Impression Date: Nov 22, 2016 Initial ECG Impression Time: 15:42 Initial ECG Rate: 101 Initial ECG Rhythm: S.Tach Initial ECG Comparisson: Unchanged Comment sinus tachycardia with LAD. artifact noted. ECG reviewed and discussed with Dr. Day. Departure Communication Time/Spoke to Admitting Phy: 17:[address] Falk accepts patient to his internal medicine service for IV antibiotics, IVF, and further management. Progress Notes Patient seen and evaluated. Patient reports pain is improved with medications given. Patient is allergic to PCN, cipro, and tetracycline. Patient was given meropenem based on the culture results from the outpatient cultures. Outpatient Urine culture sensitive to amikacin, meropenem, and macrobid. all laboratory findings, diagnostic study findings, and plan for admission discussed with the patient. Patient voices understanding and agrees with the treatment plan. Patient case discussed with Dr. Day, he agrees with the plan of care. Impression Impression: Primary Impression: Sepsis Additional Impressions: Urinary tract infection Acute renal insufficiency Chronic anemia Tinea Disposition: ADMITTED INPATIENT Condition: Stable Decision to Admit Reason: Admit from ER (General) Decision to Admit/Date: Nov 22, 2016 Time/Decision to Admit Time: 17:30 Departure-Patient Inst. Referrals: GUS HOUSER MD (PCP) Primary Care Physician WIL PINEDA Nov 22, 2016 15:27
[2016-11-22 15:30] LABS: BASOPHILS # (AUTO) 0.1 10^3/uL (0.0-0.1); BASOPHILS % (AUTO) 0 % (0-10); EOSINOPHILS # (AUTO) 0.3 10^3/uL (0.0-0.3); EOSINOPHILS % (AUTO) 2 % (0-10); LYMPHOCYTES # (AUTO) 1.6 X 10^3 (1.0-4.0); LYMPHOCYTES % (AUTO) 10 % (12-44); MEAN CORPUSCULAR HEMOGLOBIN 25 PG (25-34); MEAN CORPUSCULAR HGB CONC 32 G/DL (32-36); MEAN CORPUSCULAR VOLUME 78 FL (80-99); MONOCYTES # (AUTO) 1.6 X 10^3 (0.0-1.0); MONOCYTES % (AUTO) 10 % (0-12); NEUTROPHILS # (AUTO) 12.6 X 10^3 (1.8-7.8); NEUTROPHILS % (AUTO) 78 % (42-75); PLATELET COUNT 174 10^3/uL (130-400); RED BLOOD COUNT 3.46 10^6/uL (4.35-5.85); RED CELL DISTRIBUTION WIDTH 19.6 % (10.0-14.5); WHITE BLOOD COUNT 16.2 10^3/uL (4.3-11.0)
[2016-11-22] MEDS ORDERED: VANCOMYCIN IV ADD-VANTAGE 1,000 MG in SODIUM CHLORIDE (ADD-VANTAGE) 250 ML IV ONE (15:30)
[2016-11-22] MEDS ORDERED: MEROPENEM 1,000 MG in NS (IVPB) 100 ML IV ONE (15:30)
[2016-11-22 15:33] LABS: INR 1.1 (0.8-1.4); PROTHROMBIN TIME PATIENT 13.4 SEC (12.2-14.7)
[2016-11-22 15:46] LABS: ALANINE AMINOTRANSFERASE 36 U/L (0-55); ALBUMIN 3.9 G/DL (3.2-4.5); ANION GAP 13 MMOL/L (5-14); ASPARTATE AMINO TRANSFERASE 38 U/L (5-34); BILIRUBIN,TOTAL 0.5 MG/DL (0.1-1.0); BLOOD UREA NITROGEN 40 MG/DL (7-18); BUN/CREATININE RATIO 27; CALCIUM 8.8 MG/DL (8.5-10.1); CARBON DIOXIDE 20 MMOL/L (21-32); CHLORIDE 103 MMOL/L (98-107); CREATININE SERUM 1.49 MG/DL (0.60-1.30); GFR ESTIMATED 34; GLUCOSE 153 MG/DL (70-105); POTASSIUM 5.2 MMOL/L (3.6-5.0); SODIUM 136 MMOL/L (135-145); TOTAL PROTEIN 7.4 G/DL (6.4-8.2)
[2016-11-22 15:51] LABS: ANISOCYTOSIS SLIGHT; BAND NEUTROPHILS 0 %; BASOPHILS % (MANUAL) 0 %; EOSINOPHILS % (MANUAL) 0 %; LYMPHOCYTES % (MANUAL) 12 %; NEUTROPHILS % (MANUAL) 82 %; SPHEROCYTES SLIGHT
[2016-11-22 15:52] LABS: TROPONIN I < 0.30 NG/ML (<0.30)
[2016-11-22 16:05] LABS: BILIRUBIN,URINE NEGATIVE (NEGATIVE); KETONES,URINE NEGATIVE (NEGATIVE); LEUKOCYTE ESTERASE ,URINE 3+ (NEGATIVE); NITRITE,URINE NEGATIVE (NEGATIVE); PH,URINE 6.5 (5-9); PROTEIN,URINE 2+ (NEGATIVE); UROBILINOGEN,URINE NORMAL (NORMAL)
[2016-11-22 16:15] LABS: WBC,URINE >100 /HPF
--- NOTE | 2016-11-22 16:20 | Diagnostic Imaging Report ---
EXAM: Portable upright radiograph of the chest. INDICATION: UTI. Fever. COMPARISON: 10/07/2016. FINDINGS: The heart size is moderately enlarged. There is poor evaluation of the left lower lobe related to cardiomegaly and technique of this exam. The right lung is clear, improved from the prior exam. No significant pleural effusion. No pneumothorax. The mediastinum and christiano appear unremarkable. There is an infusion port with the tip at the right atrium level. IMPRESSION: Cardiomegaly without overt failure. Opacification of the left lung base is probably due to superimposition of soft tissues and cardiomegaly on this portable radiograph. Correlate clinically and with PA and lateral views of the chest, if needed. Dictated by: Dictated on workstation # [id number]
[2016-11-22] MEDS ORDERED: fentaNYL INJECTION 100 MCG/2 ML AMP IVP STA (16:28)
[2016-11-22 18:10] VITALS: BP 137/60
[2016-11-22] MEDS ORDERED: HYDROcodone/APAP 5 MG/325 MG (LORTAB) TAB ONE (18:11)
[2016-11-22] MEDS ORDERED: VANCOMYCIN 1500 MG/NS 500 ML IVPB IV SCH ×2 (18:30)
[2016-11-22] MEDS ORDERED: NS W/KCL 20 MEQ/L 1,000 ML IV SCH (18:30)
[2016-11-22] MEDS ORDERED: CATHETER FLUSH 10 ML SYR IV PRN (18:45)
[2016-11-22] MEDS ORDERED: ONDANSETRON 4 MG/2 ML (SDV) Z0FRAN IV PRN (18:45)
[2016-11-22] MEDS: FUROSEMIDE 40 MG/4 ML INJ (LASIX) IV SCH (18:45)
[2016-11-22] MEDS: fluCOnazole (DIFLUCAN) 100 MG TAB PO SCH (18:55)
[2016-11-22] MEDS ORDERED: MICONAZOLE NITRATE 2% CRM 30 GM TP SCH (21:00)
[2016-11-22] MEDS: CLOTRIMAZOLE 1% VAG CR (GYNE LOTRIMIN) 45 GM PV SCH (21:00)
[2016-11-22] MEDS: BETAMETHASONE/CLOTRIM CREAM (LOTRISONE) 45 GM TP SCH (21:33)
[2016-11-22] MEDS: MEROPENEM 500 MG/NS 100 ML IVPB IV SCH ×2 (21:35)
[2016-11-22 22:58] VITALS: BP 116/57
[2016-11-22 23:00] VITALS: BP 116/57
[2016-11-23 04:05] VITALS: BP 130/62
[2016-11-23] MEDS: NS IV 1000 ML 1,000 ML IV SCH ×2 (07:01→20:01)
[2016-11-23] MEDS: FUROSEMIDE 40 MG/4 ML INJ (LASIX) IV SCH ×2 (07:01→17:27)
[2016-11-23] MEDS: MEROPENEM 500 MG/NS 100 ML IVPB IV SCH ×6 (07:02→21:28)
[2016-11-23 07:25] LABS: BASOPHILS # (AUTO) 0.1 10^3/uL (0.0-0.1); BASOPHILS % (AUTO) 1 % (0-10); EOSINOPHILS # (AUTO) 0.6 10^3/uL (0.0-0.3); EOSINOPHILS % (AUTO) 5 % (0-10); LYMPHOCYTES # (AUTO) 1.2 X 10^3 (1.0-4.0); LYMPHOCYTES % (AUTO) 10 % (12-44); MEAN CORPUSCULAR HEMOGLOBIN 25 PG (25-34); MEAN CORPUSCULAR HGB CONC 32 G/DL (32-36); MEAN CORPUSCULAR VOLUME 78 FL (80-99); MEAN PLATELET VOLUME 10.3 FL (7.4-10.4); MONOCYTES # (AUTO) 1.4 X 10^3 (0.0-1.0); MONOCYTES % (AUTO) 12 % (0-12); NEUTROPHILS # (AUTO) 8.3 X 10^3 (1.8-7.8); NEUTROPHILS % (AUTO) 72 % (42-75); PLATELET COUNT 132 10^3/uL (130-400); RED BLOOD COUNT 3.83 10^6/uL (4.35-5.85); RED CELL DISTRIBUTION WIDTH 19.4 % (10.0-14.5); WHITE BLOOD COUNT 11.5 10^3/uL (4.3-11.0)
[2016-11-23 07:43] LABS: ALBUMIN 3.5 G/DL (3.2-4.5); BILIRUBIN,TOTAL 0.5 MG/DL (0.1-1.0); CALCIUM 8.4 MG/DL (8.5-10.1); CREATININE SERUM 1.33 MG/DL (0.60-1.30); POTASSIUM 4.7 MMOL/L (3.6-5.0); TOTAL PROTEIN 6.7 G/DL (6.4-8.2)
[2016-11-23 08:00] VITALS: BP 110/59
[2016-11-23] MEDS ORDERED: NYST15CR TP ×2 (08:40→08:55)
[2016-11-23] MEDS ORDERED: TR025C15 TP (08:40)
[2016-11-23] MEDS ORDERED: PHEN57OI3 RC (08:40)
[2016-11-23] MEDS ORDERED: FLUC100T6 PO (08:40)
[2016-11-23] MEDS ORDERED: HYDR-3812 PO (08:40)
[2016-11-23] MEDS ORDERED: FEXO-46 PO (08:40)
[2016-11-23] MEDS ORDERED: Z-GUARD TOP (08:55)
[2016-11-23] MEDS: BETAMETHASONE/CLOTRIM CREAM (LOTRISONE) 45 GM TP SCH ×2 (10:43→21:27)
[2016-11-23] MEDS: CLOTRIMAZOLE 1% VAG CR (GYNE LOTRIMIN) 45 GM PV SCH ×2 (10:44→21:27)
--- NOTE | 2016-11-23 10:48 | History & Physical-Hospitalist ---
HPI History of Present Illness: HPI/Chief Complaint The patient is a 71-year-old white female well-known to this institution. She has been previously admitted on multiple occasions. 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 She has a suprapubic cystostomy and a colonoscopy which is unfortunately placed in near proximity to the cystostomy. She is a resident of [facility]. She reports that she had felt ill for 4 or 5 days but had only began to run a fever 2 days ago. She presented by ambulance to the emergency room last night. She was found to have a fever of 102.6. Her white count was 16,200. Her creatinine was slightly elevated over her usual at 1.49. She had been on a program previously which seemed to increase the interval between admissions. Her outpatient physician Dr. cole was giving her IV antibiotics on occasion at [facility]. She described chills and sweats yesterday. She had had a urine culture on 11/21 as an outpatient which showed Escherichia coli which was ESBL. The preliminary on the culture today also reveals Escherichia coli. Blood cultures are negative to this point. Date Seen 11/23/16 Attending Physician Camden Velasco MD PCP Chetan Cole MD Referring Physician Date of Admission Nov 22, 2016 at 16:50 Home Medications & Allergies Home Medications Reviewed patient Home Medication Reconciliation Form Allergies Coded Allergies: Penicillins (Verified Allergy, Unknown, PT HAS RECEIVED ROCEPHIN & MEROPENEM W/O ISSUE, 10/05/16) butorphanol tartrate (Verified Allergy, Unknown, 10/05/16) ciprofloxacin (Verified Allergy, Unknown, 10/05/16) ciprofloxacin HCl (Verified Allergy, Unknown, 10/05/16) hydromorphone HCl (Verified Allergy, Unknown, 10/05/16) meperidine HCl (Verified Allergy, Unknown, 10/05/16) morphine (Verified Allergy, Unknown, 10/05/16) tetracycline (Verified Allergy, Unknown, 10/05/16) Past Hsnzmvg-Rosqwj-Egdldm Hx Patient Social History Alcohol Use: Denies Use Recreational Drug Use: No Smoking Status: Never a Smoker 2nd Hand Smoke Exposure: No Physical Abuse Screen: No Sexual Abuse: No Recent Foreign Travel: No Contact w/other who traveled: No Recent Hopitalizations: No Recent Infectious Disease Expo: No Immunizations Up To Date Tetanus Booster (TDap): Unknown Date of Pneumonia Vaccine: Dec 09, 2011 Date of Influenza Vaccine: Aug 18, 2016 Seasonal Allergies Seasonal Allergies: No Surgeries HX Surgeries: Yes (COLOSTOMY;SUPRAPUBIC CATHETER) Surgeries: Abdominal, Bladder Surgery, Bowel Surgery, Hysterectomy Respiratory Hx Respiratory Disorders: Yes Respiratory Disorders: Asthma, Pneumonia Cardiovascular Hx Cardiovascular Disorders: Yes Cardiac Disorders: Chronic Edema/Swelling, High Cholesterol, Hypertension Neurological Hx Neurological Disorders: Yes (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"- GENERALIZED WEAKNESS) Endocrine Hx Endocrine Disorders: Yes (MYXEDEMA COMA) Endocrine Disorders: Hypothyroidsim HEENT HX ENT Disorders: No Loss of Vision: Denies Hearing Impairment: Denies Cancer Hx Cancer: Yes Cancer: Breast Psychosocial Hx Psychiatric Problems: Yes (PSYCHOSIS) Behavioral Health Disorders: Depression Integumentary HX Skin/Integumentary Disorder: Yes (athletes foot bilat feet) Skin/Integumentary Disorders: Recent Skin Changes Blood Transfusions Hx Blood Disorders: Yes (ANEMIA) Adverse Reaction to a Blood Tr: No Reviewed Nursing Assessment Reviewed/Agree w Nursing PMH: Yes Family Medical History Significant Family History: No Pertinent Family Hx Family Hx: Patient reports no known family medical history. Review of Systems Constitutional: see HPI chills diaphoresis fever EENTM: no symptoms reported Respiratory: no symptoms reported Cardiovascular: no symptoms reported Gastrointestinal: no symptoms reported Genitourinary: see HPI Musculoskeletal: no symptoms reported Skin: no symptoms reported Psychiatric/Neurological: No Symptoms Reported Physical Exam Physical Exam Vital Signs Vital Sign - Last 12Hours 11/22/16 15:01 Temp 100.4 Pulse 105 Resp 16 B/P 111/53 Pulse Ox 94 O2 Delivery Room Air Capillary Refill : Less Than 3 Seconds General Appearance: Mild Distress Eyes: Bilateral Eye Normal Inspection HEENT: Normal ENT Inspection Neck: Full Range of Motion Normal Inspection Non Tender Supple Carotid Bruit Respiratory: Chest Non Tender Lungs Clear Normal Breath Sounds No Accessory Muscle Use No Respiratory Distress Cardiovascular: Regular Rate, Rhythm No Edema No Gallop No JVD No Murmur Normal Peripheral Pulses Gastrointestinal: Other Results Results/Procedures Lab Laboratory Tests 11/22/16 14:55 11/23/16 07:17 Assessment/Plan Admission Diagnosis 1.recurrent infection/sepsis 2.paraplegia Clinical Quality Measures DVT/VTE Risk/Contraindication: Risk Factor Score Per Nursin RFS Level Per Nursing on Admit: 4+=Very High CAMDEN VELASCO MD Nov 23, 2016 10:48
[2016-11-23 12:00] VITALS: BP 114/65
[2016-11-23 16:00] VITALS: BP 138/69
[2016-11-23] MEDS: fluCOnazole (DIFLUCAN) 100 MG TAB PO SCH (17:27)
[2016-11-23 20:40] VITALS: BP 127/72
[2016-11-24] VITALS: BP 162/82
[2016-11-24] MEDS ORDERED: HYDROcodone/APAP 5 MG/325 MG (LORTAB) TAB PO PRN
[2016-11-24 04:00] VITALS: BP 146/98
[2016-11-24] MEDS: MEROPENEM 500 MG/NS 100 ML IVPB IV SCH ×6 (05:20→21:19)
[2016-11-24] MEDS ORDERED: PROMETHAZINE INJ 25 MG/ML (PHENERGAN) AMP IVP ONE (06:15)
[2016-11-24] MEDS: FUROSEMIDE 40 MG/4 ML INJ (LASIX) IV SCH (06:20)
[2016-11-24 08:00] VITALS: BP 143/79
[2016-11-24] MEDS: CLOTRIMAZOLE 1% VAG CR (GYNE LOTRIMIN) 45 GM PV SCH ×2 (09:00→21:00)
[2016-11-24] MEDS: BETAMETHASONE/CLOTRIM CREAM (LOTRISONE) 45 GM TP SCH ×2 (09:07→21:20)
[2016-11-24] MEDS: NS IV 1000 ML 1,000 ML IV SCH ×2 (09:07→12:13)
[2016-11-24] MEDS ORDERED: BENZONATATE 100 MG (TESSALON) CAPSULE PO PRN (09:45)
[2016-11-24] MEDS ORDERED: ACETAMINOPHEN 325 MG TABLET/CAPLET (TYLENOL) PO PRN (09:45)
[2016-11-24] MEDS ORDERED: RX-HYDROCODONE/APAP 5/325 MG #4 TAB PK PO PRN (09:45)
[2016-11-24] MEDS ORDERED: SCOPOLAMINE 1.5 MG (TRANSDERM-SCOP) PATCH TOP SCH (09:45)
[2016-11-24] MEDS ORDERED: EUCERIN CREAM 16 OZ JAR (HYDROCERIN) TP PRN (09:45)
[2016-11-24] MEDS ORDERED: PROMETHAZINE INJ 25 MG/ML (PHENERGAN) AMP IM PRN (09:45)
[2016-11-24] MEDS ORDERED: ONDANSETRON 4 MG (ZOFRAN) ORAL DISSOLVE TAB PO PRN (10:00)
[2016-11-24] MEDS ORDERED: EUCERIN CREAM 4 OZ JAR (HYDROCERIN) TP PRN (10:05)
[2016-11-24 10:08] LABS: BASOPHILS # (AUTO) 0.1 10^3/uL (0.0-0.1); BASOPHILS % (AUTO) 1 % (0-10); EOSINOPHILS # (AUTO) 0.1 10^3/uL (0.0-0.3); EOSINOPHILS % (AUTO) 1 % (0-10); LYMPHOCYTES # (AUTO) 0.6 X 10^3 (1.0-4.0); LYMPHOCYTES % (AUTO) 8 % (12-44); MEAN CORPUSCULAR HEMOGLOBIN 25 PG (25-34); MEAN CORPUSCULAR HGB CONC 32 G/DL (32-36); MEAN CORPUSCULAR VOLUME 77 FL (80-99); MEAN PLATELET VOLUME 9.9 FL (7.4-10.4); MONOCYTES # (AUTO) 0.7 X 10^3 (0.0-1.0); MONOCYTES % (AUTO) 8 % (0-12); NEUTROPHILS # (AUTO) 6.5 X 10^3 (1.8-7.8); NEUTROPHILS % (AUTO) 82 % (42-75); PLATELET COUNT 153 10^3/uL (130-400); RED BLOOD COUNT 3.96 10^6/uL (4.35-5.85); RED CELL DISTRIBUTION WIDTH 18.8 % (10.0-14.5)
--- NOTE | 2016-11-24 10:26 | Progress Note-Hospitalist ---
Progress Note HPI/CC on Admission The patient is a 71-year-old white female well-known to this institution. She has been previously admitted on multiple occasions. 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 She has a suprapubic cystostomy and a colonoscopy which is unfortunately placed in near proximity to the cystostomy. She is a resident of [facility]. She reports that she had felt ill for 4 or 5 days but had only began to run a fever 2 days ago. She presented by ambulance to the emergency room last night. She was found to have a fever of 102.6. Her white count was 16,200. Her creatinine was slightly elevated over her usual at 1.49. She had been on a program previously which seemed to increase the interval between admissions. Her outpatient physician Dr. galeano was giving her IV antibiotics on occasion at [facility]. She described chills and sweats yesterday. She had had a urine culture on 11/21 as an outpatient which showed Escherichia coli which was ESBL. The preliminary on the culture today also reveals Escherichia coli. Blood cultures are negative to this point. Progress Notes/Assess & Plan Date Seen 11/24/16 Diagonsis/Assessment & Plan Chart Review: No fever Vitals stable Hgb 9.6 WBC 11.5 down from 16.2 Creat 1.3 yesterday Will check labs now Microbiology shows E. coli ESBL + human resources operations director: RN states that she has declined to use Zofran. Pt is now on a clear liquid diet due to severe nausea. Patient Interview: Dr. Kahn informs pt that Zofran has been DCd and Phenergan started, due to nausea. Pt received Phenergan this morning. Pt denies having pain currently, but still has some nausea. Physical exam stable. Dr. Kahn discusses pt's bacterial cultures and treatment plan. 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 Kahn. KESHA KAHN DO Nov 24, 2016 10:26
[2016-11-24 10:31] LABS: ALBUMIN 3.6 G/DL (3.2-4.5); BILIRUBIN,TOTAL 0.4 MG/DL (0.1-1.0); CALCIUM 9.1 MG/DL (8.5-10.1); CREATININE SERUM 0.99 MG/DL (0.60-1.30); POTASSIUM 4.1 MMOL/L (3.6-5.0)
[2016-11-24] MEDS: LACTOBACILLUS Acidoph/Bulgar (LACTINEX/FLORANEX) TAB PO SCH (10:35)
[2016-11-24 12:00] VITALS: BP 128/65
[2016-11-24] MEDS ORDERED: NS (IVPB) 100 ML ONE (12:29)
[2016-11-24] MEDS ORDERED: MEROPENEM 500 MG VIAL (MERREM) IV ONE (12:29)
[2016-11-24] MEDS: BACLOFEN 10 MG (LIORESAL) TAB PO SCH ×2 (12:31→21:19)
[2016-11-24] MEDS: PREGABALIN 100 MG (LYRICA) CAPSULE PO SCH ×2 (12:31→21:19)
--- NOTE | 2016-11-24 13:15 | Physician Query-General Query ---
Physician Query-General Query to Physician: [facility] SOP Coding Query Via [facility] Exhibit D5 Link Infection to Device or Procedure Template The medical record reflects the following clinical scenario: History/Risk factors: (Paraplegic patient with suprapubic catheter and colostomy) Clinical Findings: (Urine culture showing E coli >100,000/ML) Treatment: (Merrem 500mg IV) Question: Can you specify if the (Sepsis/UTI) is due to/associated with ( suprapubic catheter)? Please document a response in the Progress Notes or Discharge Summary. 1. Yes - (Sepsis/UTI) is due to/associated with (device or procedure) 2. No - (Sepsis/UTI) is not due to/associated with (device or procedure) 3. Other, with explanation of the clinical findings 4. Clinically undetermined, no explanation for the clinical findings In responding to this query, please exercise your independent professional judgment. The purpose of this communication is to more accurately reflect the complexity of your patients condition. The fact that a question is asked does not imply that any particular answer is desired or expected. Thank you for your timely response to this clarification. THIS PHYSICIAN QUERY FORM IS A PERMANENT PART OF THE MEDICAL RECORD PHYSICIAN RESPONSE: Based on the clinical findings in the record, please respond to the query above on this document as an addendum. Possible, probable, or questionable diagnosis can be coded for INPATIENTS ONLY. Physician Response: Physician Response Yes - (Sepsis/UTI) is due to/associated with (device or procedure) If you have questions please contact: Life Insurance Underwriter:Silke Baltazar [facility],CCDS Ext:[phone] Thank you for your time and cooperation. Clinical Provider Scribe/Life Insurance Underwriter This is a permanent part of the medical record SILKE BALTAZAR Nov 24, 2016 13:15 KESHA TOTH DO Nov 25, 2016 12:12
[2016-11-24 16:20] VITALS: BP 148/76
[2016-11-24] MEDS: fluCOnazole (DIFLUCAN) 100 MG TAB PO SCH (17:01)
[2016-11-24] MEDS ORDERED: TROUGH ORDER-PHARMACY XX NR (17:30)
[2016-11-24] MEDS ORDERED: BENAZEPRIL 20 MG (LOTENSIN) TAB PO SCH (18:00)
[2016-11-24] MEDS ORDERED: amLODIPine 5 MG (NORVASC) TAB PO SCH (18:00)
[2016-11-24 19:55] VITALS: BP 125/72
[2016-11-24] MEDS ORDERED: MESALAMINE RC SCH (21:00)
[2016-11-24] MEDS ORDERED: SIMvastatin 10 MG (ZOCOR) TAB PO SCH (21:00)
[2016-11-24] MEDS: NYSTATIN CREAM (MYCOSTATIN) 30 GM TUBE TP SCH (21:19)
[2016-11-25] VITALS: BP 116/58
[2016-11-25] MEDS: NS IV 1000 ML 1,000 ML IV SCH (03:37)
[2016-11-25 04:00] VITALS: BP 124/57
[2016-11-25] MEDS ORDERED: LEVOTHYROXINE 150 MCG (LEVOTHROID) TAB PO SCH (05:00)
[2016-11-25] MEDS: MEROPENEM 500 MG/NS 100 ML IVPB IV SCH ×4 (05:24→12:10)
[2016-11-25] MEDS ORDERED: KCL 20 MEQ TAB (K-DUR) PO SCH (07:00)
[2016-11-25] MEDS ORDERED: MULTIVIT W/MINERALS TAB (THERAGRAN M) PO SCH (07:00)
[2016-11-25] MEDS ORDERED: PANTOPRAZOLE 40 MG (PROTONIX) TAB PO SCH (07:00)
[2016-11-25 07:17] LABS: BASOPHILS # (AUTO) 0.1 10^3/uL (0.0-0.1); BASOPHILS % (AUTO) 1 % (0-10); EOSINOPHILS # (AUTO) 0.3 10^3/uL (0.0-0.3); EOSINOPHILS % (AUTO) 5 % (0-10); LYMPHOCYTES # (AUTO) 0.7 X 10^3 (1.0-4.0); LYMPHOCYTES % (AUTO) 11 % (12-44); MEAN CORPUSCULAR HGB CONC 33 G/DL (32-36); MEAN CORPUSCULAR VOLUME 78 FL (80-99); MEAN PLATELET VOLUME 11.2 FL (7.4-10.4); MONOCYTES # (AUTO) 0.7 X 10^3 (0.0-1.0); MONOCYTES % (AUTO) 11 % (0-12); NEUTROPHILS # (AUTO) 4.6 X 10^3 (1.8-7.8); NEUTROPHILS % (AUTO) 73 % (42-75); RED CELL DISTRIBUTION WIDTH 18.5 % (10.0-14.5)
[2016-11-25 07:18] LABS: ALANINE AMINOTRANSFERASE 25 U/L (0-55); ALBUMIN 3.2 G/DL (3.2-4.5); ANION GAP 12 MMOL/L (5-14); ASPARTATE AMINO TRANSFERASE 22 U/L (5-34); BILIRUBIN,TOTAL 0.3 MG/DL (0.1-1.0); BLOOD UREA NITROGEN 30 MG/DL (7-18); BUN/CREATININE RATIO 35; CALCIUM 8.6 MG/DL (8.5-10.1); CARBON DIOXIDE 22 MMOL/L (21-32); CHLORIDE 107 MMOL/L (98-107); CREATININE SERUM 0.86 MG/DL (0.60-1.30); GFR ESTIMATED > 60; GLUCOSE 107 MG/DL (70-105); MEAN CORPUSCULAR HEMOGLOBIN 25 PG (25-34); POTASSIUM 3.9 MMOL/L (3.6-5.0); RED BLOOD COUNT 3.67 10^6/uL (4.35-5.85); SODIUM 141 MMOL/L (135-145); TOTAL PROTEIN 6.3 G/DL (6.4-8.2)
[2016-11-25 07:19] LABS: PLATELET COUNT 112 10^3/uL (130-400)
[2016-11-25 08:00] VITALS: BP 164/74
[2016-11-25] MEDS: PREGABALIN 100 MG (LYRICA) CAPSULE PO SCH ×2 (08:36→12:09)
[2016-11-25] MEDS: BETAMETHASONE/CLOTRIM CREAM (LOTRISONE) 45 GM TP SCH (08:37)
[2016-11-25] MEDS: LACTOBACILLUS Acidoph/Bulgar (LACTINEX/FLORANEX) TAB PO SCH (08:37)
[2016-11-25] MEDS: BACLOFEN 10 MG (LIORESAL) TAB PO SCH ×2 (08:37→12:09)
[2016-11-25] MEDS: CLOTRIMAZOLE 1% VAG CR (GYNE LOTRIMIN) 45 GM PV SCH (08:37)
[2016-11-25] MEDS: NYSTATIN CREAM (MYCOSTATIN) 30 GM TUBE TP SCH (08:38)
[2016-11-25] MEDS ORDERED: NYSTATIN CREAM (MYCOSTATIN) 30 GM TUBE TP SCH ×2 (09:00)
[2016-11-25] MEDS ORDERED: VENlafaxine XR 75 MG (EFFEXOR XR) CAP PO SCH (09:00)
[2016-11-25] MEDS ORDERED: MESALAMINE 1.2 GM PO SCH (09:00)
[2016-11-25] MEDS ORDERED: ASPIRIN E.C. 81 MG (ECOTRIN) TAB PO SCH (09:00)
[2016-11-25] MEDS ORDERED: MAGNESIUM OXIDE (MAG-OX)400 MG TAB PO SCH (09:00)
[2016-11-25] MEDS ORDERED: fluCOnazole (DIFLUCAN) 100 MG TAB PO SCH (09:00)
[2016-11-25] MEDS ORDERED: LORATADINE (CLARITIN) 10 MG TAB PO SCH (09:00)
[2016-11-25] MEDS ORDERED: FUROSEMIDE 40 MG (LASIX) TAB PO SCH (09:00)
[2016-11-25] MEDS ORDERED: FUROSEMIDE 40 MG/4 ML INJ (LASIX) IVP ONE (10:30)
[2016-11-25] MEDS ORDERED: SCOP1PAT TOP (10:39)
[2016-11-25] MEDS ORDERED: HYDR-3812 PO (10:39)
[2016-11-25] MEDS ORDERED: MERO500V3 IV (10:40)
--- NOTE | 2016-11-25 10:42 | Discharge Inst-Skilled Nursing ---
Discharge Inst-Skilled NF Chief Complaint The patient is a 71-year-old white female well-known to this institution. She has been previously admitted on multiple occasions. 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 She has a suprapubic cystostomy and a colonoscopy which is unfortunately placed in near proximity to the cystostomy. She is a resident of [facility]. She reports that she had felt ill for 4 or 5 days but had only began to run a fever 2 days ago. She presented by ambulance to the emergency room last night. She was found to have a fever of 102.6. Her white count was 16,200. Her creatinine was slightly elevated over her usual at 1.49. She had been on a program previously which seemed to increase the interval between admissions. Her outpatient physician Dr. galeano was giving her IV antibiotics on occasion at [facility]. She described chills and sweats yesterday. She had had a urine culture on 11/21 as an outpatient which showed Escherichia coli which was ESBL. The preliminary on the culture today also reveals Escherichia coli. Blood cultures are negative to this point. Patient Instructions Patient Problems: Sepsis UTI Paralysis Consult/Follow Up/Orders Skilled NF Admit to: [facility] Certification (SNF) I certify that SNF services are required to be given on an inpatient basis because of the above named patient's need for [facility] care on a continuing basis for the conditions(s) for which he/she was receiving inpatient hospital services prior to his/her transfer to the SNF. [facility] Facility Order: Nursing Services, Court Supervisor-Evaluate & Treat, Physical Therapy-Evaluate & Treat, Wound Care-Eval/Treat Discharge Diet: No Restrictions Daily Activity as Tolerated: Yes New & Resume Previous Orders Azalea Kahn Nov 25, 2016 10:42 AZALEA KAHN DO Nov 25, 2016 10:42
--- NOTE | 2016-11-25 10:43 | Discharge Summary-Hospitalist ---
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 She has been previously admitted on multiple occasions. 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 She has a suprapubic cystostomy and a colonoscopy which is unfortunately placed in near proximity to the cystostomy. She is a resident of [facility]. She reports that she had felt ill for 4 or 5 days but had only began to run a fever 2 days ago. She presented by ambulance to the emergency room last night. She was found to have a fever of 102.6. Her white count was 16,200. Her creatinine was slightly elevated over her usual at 1.49. She had been on a program previously which seemed to increase the interval between admissions. Her outpatient physician Dr. galeano was giving her IV antibiotics on occasion at [facility]. She described chills and sweats yesterday. She had had a urine culture on 11/21 as an outpatient which showed Escherichia coli which was ESBL. The preliminary on the culture today also reveals Escherichia coli. Blood cultures are negative to this point. Note from 11/25/16: Patient doing well denies any pain or fever and nausea has resolved with scopolamine patch Ready for discharge to [facility] with IV antibiotics Hospital course: Patient had an uneventful hospital course she was admitted placed on meropenem due to her prior culture results in the past for UTI and was given IV fluids and supportive care along with home medications. Long-term prognosis is extremely poor she is been very resistant to sign up for hospice and end-of-life care but we will continue to support the patient anyway possible and will send back to [facility] on meropenem 500 MG IV every 8 hours for an additional 4 days to complete treatment. Discharge Summary Discharge Physical Examination Allergies: Coded Allergies: Penicillins (Verified Allergy, Unknown, PT HAS RECEIVED ROCEPHIN & MEROPENEM W/O ISSUE, 10/05/16) butorphanol tartrate (Verified Allergy, Unknown, 10/05/16) ciprofloxacin (Verified Allergy, Unknown, 10/05/16) ciprofloxacin HCl (Verified Allergy, Unknown, 10/05/16) hydromorphone HCl (Verified Allergy, Unknown, 10/05/16) meperidine HCl (Verified Allergy, Unknown, 10/05/16) morphine (Verified Allergy, Unknown, 10/05/16) tetracycline (Verified Allergy, Unknown, 10/05/16) Vitals & I&Os Vital Signs Date Time Temp Pulse Resp B/P Pulse Ox O2 Delivery O2 Flow Rate FiO2 11/25/16 08:00 95 Nasal Cannula 2.00 11/25/16 08:00 97.0 82 24 164/74 Hospital Course Labs (last 24 hrs) Laboratory Tests 11/25/16 06:06: Alanine Aminotransferase (ALT/SGPT) 25, Albumin 3.2, Alkaline Phosphatase 119, Anion Gap 12, Aspartate Amino Transf (AST/SGOT) 22, BUN/Creatinine Ratio 35, Basophils # (Auto) 0.1, Basophils (%) (Auto) 1, Blood Urea Nitrogen 30H, Calcium Level 8.6, Carbon Dioxide Level 22, Chloride Level 107, Creatinine 0.86 , Eosinophils # (Auto) 0.3, Eosinophils (%) (Auto) 5, Estimat Glomerular Filtration Rate > 60, Glucose Level 107H, Hematocrit 29L, Hemoglobin 9.3L, Lymphocytes # (Auto) 0.7L, Lymphocytes (%) (Auto) 11L, Mean Corpuscular Hemoglobin 25, Mean Corpuscular Hemoglobin Concent 33, Mean Corpuscular Volume 78L, Mean Platelet Volume 11.2H, Monocytes # (Auto) 0.7, Monocytes (%) (Auto) 11 , Neutrophils # (Auto) 4.6, Neutrophils (%) (Auto) 73, Platelet Count 112L, Potassium Level 3.9, Red Blood Count 3.67L, Red Cell Distribution Width 18.5H, Smear Scan , Sodium Level 141, Total Bilirubin 0.3, Total Protein 6.3L, White Blood Count 7.0 Microbiology 11/22/16 Blood Culture - Preliminary, Resulted No growth 11/22/16 Urine Culture - Preliminary, Resulted Escherichia Coli Staphylococcus Aureus Pending Labs Laboratory Tests 11/25/16 06:06: Alanine Aminotransferase (ALT/SGPT) 25, Albumin 3.2, Alkaline Phosphatase 119, Anion Gap 12, Aspartate Amino Transf (AST/SGOT) 22, BUN/Creatinine Ratio 35, Basophils # (Auto) 0.1, Basophils (%) (Auto) 1, Blood Urea Nitrogen 30, Calcium Level 8.6, Carbon Dioxide Level 22, Chloride Level 107, Creatinine 0.86, Eosinophils # (Auto) 0.3, Eosinophils (%) (Auto) 5, Estimat Glomerular Filtration Rate > 60, Glucose Level 107, Hematocrit 29, Hemoglobin 9.3, Lymphocytes # (Auto) 0.7, Lymphocytes (%) (Auto) 11, Mean Corpuscular Hemoglobin 25, Mean Corpuscular Hemoglobin Concent 33, Mean Corpuscular Volume 78, Mean Platelet Volume 11.2, Monocytes # (Auto) 0.7, Monocytes (%) (Auto) 11, Neutrophils # (Auto) 4.6, Neutrophils (%) (Auto) 73, Platelet Count 112, Potassium Level 3.9, Red Blood Count 3.67, Red Cell Distribution Width 18.5, Smear Scan , Sodium Level 141, Total Bilirubin 0.3, Total Protein 6.3, White Blood Count 7.0 Discharge Home Medications: Active Scripts Active Meropenem 500 Mg Vial 500 Mg IV Q8H 4 Days Transderm-Scop (Scopolamine) 1 Each Patch.td72 1.5 Mg TOP Q72H 30 Days Hydrocodon -Acetaminophen 5-325 (Hydrocodone/Acetaminophen) 1 Each Tablet 1 Tab PO Q8H PRN Reported [Z-Guard] TOP BID Nystatin 15 Gm Cream..g. TP DAILY APPLY TO GROIN Nystatin 15 Gm Cream..g. TP DAILY APPLY TO GROIN AND RIGHT FOOT Nystatin 15 Gm Cream..g. TP BID APPLY TO GROIN AND ABDOMINAL FOLD Hemorrhoidal Ointment (Phenylephrine/Shk Lv/Mo/Pet,Wh) 57 Gm Oint...g. RC BID Fluconazole 100 Mg Tablet 100 Mg PO DAILY Fexofenadine HCl 180 Mg Tablet 180 Mg PO DAILY Restasis (Cyclosporine) 1 Each Droperette 1 Drop OU BID Benzonatate 100 Mg Capsule 100 Mg PO Q6H PRN Zofran (Ondansetron HCl) 4 Mg Tab 4 Mg PO PRN PRN Tylenol (Acetaminophen) 325 Mg Tablet 650 Mg PO Q4H PRN TAKES 2 (325MG) TABLETS Miconazole Nitrate 10 Gm Powder TOP PRN PRN APPLY TO GROIN AND PERINEAL AREA Eucerin Creme (Mineral Oil/Petrolatum,White) 120 Gm Cream..g. TP PRN PRN Levothyroxine Sodium 150 Mcg Tablet 150 Mcg PO 0500 Venlafaxine HCl ER (Venlafaxine HCl) 75 Mg Cap.er.24h 75 Mg PO DAILY Potassium Chloride 20 Meq Tablet.er 20 Meq PO DAILY Cranberry (Cranberry Fruit) 450 Mg Tablet 450 Mg PO DAILY Nexium (Esomeprazole Magnesium) 40 Mg Cap 40 Mg PO BID Stress Formula with Zinc Tab (Multivits,Stress Formula/Zinc) 1 Each Tablet 1 Tab PO HS Aspir 81 (Aspirin) 81 Mg Tablet.dr 81 Mg PO DAILY Acidophilus (Lactobacillus Acidophilus) 1 Each Capsule 1 Cap PO DAILY Canasa (Mesalamine) 1,000 Mg Supp.rect 1 Supp RC BID Pravachol (Pravastatin Sodium) 20 Mg Tablet 20 Mg PO DAILY Lyrica (Pregabalin) 200 Mg Capsule 200 Mg PO TID Lioresal Tablet (Baclofen) 10 Mg Tab 10 Mg PO TID Furosemide 40 Mg Tablet 40 Mg PO DAILY Lialda (Mesalamine) 1.2 Gm Tablet.dr 1.2 Gm PO DAILY Mag Ox 400 (Magnesium Oxide) 400 Mg Tablet 400 Mg PO DAILY Lotrel 5-40 Mg Capsule (Amlodipine/Benazepril HCl) 1 Each Capsule 1 Cap PO 1800 HOLD IF SYSTOLIC BP <90 OR PULSE <60 Instructions to patient/family Please see electonic discharge instructions given to patient. Clinical Quality Measures DVT/VTE Risk/Contraindication: Risk Factor Score Per Nursin RFS Level Per Nursing on Admit: 4+=Very High KESHA TOTH DO Nov 25, 2016 10:43
[2016-11-25] MEDS ORDERED: ARTIFICAL TEARS 0.4 ML UNIT DOSE (REFRESH PLUS) OU PRN (11:30)
[2016-11-25 12:00] VITALS: BP 137/63
[2016-11-25 16:35] VITALS: BP 137/63
[2016-11-25] MEDS ORDERED: MEROPENEM 500 MG/NS 100 ML IVPB IV SCH ×2 (18:00)
[2016-11-27] MEDS ORDERED: PATCH REMOVAL TP SCH (09:00)
[2016-12-21] MEDS ORDERED: MERO500V3 IV (08:47)
[2016-12-21] MEDS ORDERED: HYDR-3812 PO (08:47)
== END 2016-11-25 16:35 | DRG 698 ==
LOC: EDUNIT# 14:31 → ER 14:31 → 4TH 16:50
PROVIDERS: ADMIT Internal Medicine; ATTEND Internal Medicine
DX: T83.510A Infection and inflammatory reaction due to cystostomy catheter, initial encounter (principal); A41.51 Sepsis due to Escherichia coli [E. coli]; N39.0 Urinary tract infection, site not specified; G82.20 Paraplegia, unspecified; N31.9 Neuromuscular dysfunction of bladder, unspecified; N28.9 Disorder of kidney and ureter, unspecified; J44.9 Chronic obstructive pulmonary disease, unspecified; J45.909 Unspecified asthma, uncomplicated; I10 Essential (primary) hypertension; D64.9 Anemia, unspecified; E03.9 Hypothyroidism, unspecified; R11.0 Nausea; B35.8 Other dermatophytoses; E78.00 Pure hypercholesterolemia, unspecified; F32.9 Major depressive disorder, single episode, unspecified; Z93.50 Unspecified cystostomy status; Z93.3 Colostomy status; Z86.69 Personal history of other diseases of the nervous system and sense organs; Z85.3 Personal history of malignant neoplasm of breast
CPT/HCPCS: 36415; 71010; 80053; 81000; 83605; 84484; 85007; 85025; 85027; 85610; 85730; 87040; 87088; 93005; 96361; 96365; 96375

== ENCOUNTER 2016-12-02 12:44 | Outpatient (RCR) | payer MEDICARE, MEDICAID ==
--- OUTSIDE RECORDS SUMMARY | 2016-09-21 12:58 | XMS REPORT | Continuity of Care Document ---
Author Author [facility] Organization [facility] Address Unknown Phone Unavailable Care Team Providers Care Mobile Designer Name Role Phone PCP Unavailable Source Comments Some departments are not documenting in the electronic medical record. If you do not see the information that you expected, contact Release of Information in the Health Information Management department at [phone] for further assistance in locating additional records.[facility] Active Allergies and Adverse Reactions Allergen Noted Date Severity Reactions Comments Demerol 12/19/2014 Low SEE COMMENTS Increased heart rate Dilaudid 12/19/2014 High HALLUCINATIONS Morphine 12/19/2014 High HALLUCINATIONS Pcn 12/19/2014 Medium RASH Stadol 12/19/2014 High HALLUCINATIONS Tetracycline 12/19/2014 Medium RASH Current Medications Prescription Sig. Disp. Refills Start End Date Status Date Levothyroxine 112 mcg cap Take by mouth. Active fexofenadine(+) (JOSH) Take 60 mg by mouth Active 60 mg tablet daily. folic acid (FOLVITE) 1 mg Take 1 mg by mouth daily. Active tablet furosemide (LASIX) 40 mg Take 40 mg by mouth Active tablet daily. Mesalamine (LIALDA) 1.2 Take by mouth daily. Active gram tablet Swallow whole; do not break, chew or crush. Administer with a meal. magnesium oxide (MAG-OX) Take 400 mg by mouth Active 400 mg tablet daily. ESOMEPRAZOLE MAGNESIUM Take by mouth. Active (NEXIUM PO) vitamins, multi stress Take 1 Tab by mouth Active formula (STRESS 600) tab daily. venlafaxine (EFFEXOR) Take 37.5 mg by mouth Active 37.5 mg tablet three times daily. Potassium Chloride Take by mouth daily. Active (MICRO-K) 8 mEq cpER ascorbic acid (VITAMIN-C) Take 500 mg by mouth Active 500 mg tablet daily. baclofen (LIORESAL) 10 mg Take 10 mg by mouth three Active tablet times daily. pregabalin (LYRICA) 200 Take 200 mg by mouth Active mg capsule twice daily. fluticasone (FLONASE) 50 Apply 2 Sprays to each Active mcg/actuation nasal spray nostril as directed daily. cycloSPORINE (RESTASIS) Place 1 Drop into or Active 0.05 % ophthalmic around eye(s) twice emulsion daily. amLODIPine/benazepril(+) Take by mouth daily. Active (LOTREL) 5/40 mg tablet pravastatin (PRAVACHOL) Take 20 mg by mouth Active 20 mg tablet daily. albuterol (VENTOLIN HFA, Inhale 2 Puffs by mouth Active PROAIR HFA) 90 every 6 hours as needed. mcg/actuation inhaler ACETAMINOPHEN (TYLENOL Take by mouth. Active PO) ONDANSETRON HCL (ZOFRAN Take by mouth. Active PO) Active Problems Problem Noted Date Graves disease 12/19/2014 Last Assessment & Plan: Mild proptosis OS but asymptomatic and stable upon review of records small left XT and hypotropia measured on exam today but patient denies diplopia F/u with CT max/face to eval for possible retro orbital process given change in color perception. Need visual field at next appt (likely [facility] as pt is unable to access [place] in wheelchair) Will also obtain TSH, TSI and thyroglobulin AB. Pt prefers to obtain imaging and labs closer to home. 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 IOLs well positioned. Observe Social History Tobacco Use Types Packs/Day Years Used Date Never Smoker Smokeless Tobacco: Never Used Alcohol Use Drinks/Week oz/Week Comments No Last Filed Vital Signs Vital Sign Reading Time Taken Blood Pressure 132/63 12/19/2014 8:20 AM CDT Pulse 66 12/19/2014 8:20 AM CDT Temperature - - Respiratory Rate - - Height 1.651 m (5' 5") 12/19/2014 8:20 AM CDT Weight 112.492 kg (248 lb) 12/19/2014 8:20 AM CDT Body Mass Index 41.27 12/19/2014 8:20 AM CDT Oxygen Saturation - - Plan of Care Health Maintenance Due Date Last Done Comments Physical (Comprehensive) 1950 Exam Pertussis Vaccine 1954 Tetanus Vaccine 1960 Breast Cancer Screening 1983 Colorectal Cancer 1993 Screening Shingles Vaccine 2003 Osteoporosis Screening 2008 Prevnar/Pneumovax (#1) 2008 Influenza Vaccine 06/10/2016 Results from Last 3 Months Not on file
[~2016-12-02 12:44] MED LIST changes: +FEXO-46 PO; +FLUC100T6 PO; +MERO500V3 IV; +NYST15CR TP; +PHEN57OI3 RC; +SCOP1PAT TOP; +Z-GUARD TOP
[2016-12-21] MEDS ORDERED: HYDR-3812 PO (08:47)
[2016-12-21] MEDS ORDERED: MERO500V3 IV (08:47)
== END 2016-12-20 | disposition home or self-care (01) ==
LOC: WOUNDCARE 12:44
PROVIDERS: ATTEND Nurse Practitioner
DX: L89.151 Pressure ulcer of sacral region, stage 1 (principal); B35.8 Other dermatophytoses
CPT/HCPCS: 81000; 87088; 99213; 99214

== ENCOUNTER 2016-12-16 19:23 | Inpatient (IN) | payer MEDICARE, MEDICAID ==
[~2016-12-16] VITALS: Ht 165.1 cm; Wt 117.9 kg
--- OUTSIDE RECORDS SUMMARY | 2016-12-16 19:28 | XMS REPORT | Continuity of Care Document ---
Author Author [facility] Organization [facility] Address Unknown Phone Unavailable Care Team Providers Care Conditioning Yard Supervisor Name Role Phone PCP Unavailable Source Comments Some departments are not documenting in the electronic medical record. If you do not see the information that you expected, contact Release of Information in the Health Information Management department at [phone] for further assistance in locating additional records.[facility] Active Allergies and Adverse Reactions Allergen Noted [...]
[2016-12-16] MEDS ORDERED: ACETAMINOPHEN 500 MG TAB (TYLENOL) PO ONE (19:45)
[2016-12-16] MEDS ORDERED: IBUPROFEN 800 MG (MOTRIN) TAB PO ONE (19:45)
[2016-12-16 19:51] LABS: BASOPHILS # (AUTO) 0.1 10^3/uL (0.0-0.1); BASOPHILS % (AUTO) 0 % (0-10); EOSINOPHILS # (AUTO) 0.5 10^3/uL (0.0-0.3); EOSINOPHILS % (AUTO) 2 % (0-10); LYMPHOCYTES # (AUTO) 1.3 X 10^3 (1.0-4.0); LYMPHOCYTES % (AUTO) 5 % (12-44); MEAN CORPUSCULAR HEMOGLOBIN 25 PG (25-34); MEAN CORPUSCULAR HGB CONC 32 G/DL (32-36); MEAN CORPUSCULAR VOLUME 78 FL (80-99); MEAN PLATELET VOLUME 11.2 FL (7.4-10.4); MONOCYTES # (AUTO) 1.4 X 10^3 (0.0-1.0); MONOCYTES % (AUTO) 5 % (0-12); NEUTROPHILS # (AUTO) 24.5 X 10^3 (1.8-7.8); NEUTROPHILS % (AUTO) 88 % (42-75); PLATELET COUNT 153 10^3/uL (130-400); RED BLOOD COUNT 4.44 10^6/uL (4.35-5.85); RED CELL DISTRIBUTION WIDTH 20.3 % (10.0-14.5); WHITE BLOOD COUNT 27.7 10^3/uL (4.3-11.0)
[2016-12-16 20:06] LABS: BAND NEUTROPHILS 6 %; LYMPHOCYTES % (MANUAL) 6 %; NEUTROPHILS % (MANUAL) 80 %
[2016-12-16 20:07] LABS: BASOPHILS % (MANUAL) 1 %; EOSINOPHILS % (MANUAL) 2 %
[2016-12-16 20:08] LABS: ALBUMIN 4.1 G/DL (3.2-4.5); BILIRUBIN,TOTAL 0.6 MG/DL (0.1-1.0); CALCIUM 9.3 MG/DL (8.5-10.1); CREATININE SERUM 1.7 MG/DL (0.60-1.30); POTASSIUM 5.5 MMOL/L (3.6-5.0); TOTAL PROTEIN 7.7 G/DL (6.4-8.2)
--- NOTE | 2016-12-16 20:28 | Diagnostic Imaging Report ---
EXAM: CHEST 1 VIEW, AP/PA ONLY. INDICATION: Chest pain. COMPARISON: Chest radiograph dated 11/22/2016. FINDINGS: Low lung volumes accentuate the heart size and pulmonary vascularity. The left lung base is obscured by overlapping tissues. Right IJ tunneled port CVC tip in the low SVC. Calcified aorta. No definite pleural effusion or pneumothorax. No acute osseous findings. IMPRESSION: No significant change. No acute cardiopulmonary findings identified. Low lung volumes and overlapping tissue limit evaluation of the lung bases, particularly on the left. Dictated by: Dictated on workstation # [id number]
[2016-12-16 20:34] LABS: BILIRUBIN,URINE NEGATIVE (NEGATIVE); KETONES,URINE NEGATIVE (NEGATIVE); LEUKOCYTE ESTERASE ,URINE 3+ (NEGATIVE); NITRITE,URINE NEGATIVE (NEGATIVE); PH,URINE 5 (5-9); PROTEIN,URINE 3+ (NEGATIVE); UROBILINOGEN,URINE NORMAL (NORMAL)
[2016-12-16 20:41] LABS: WBC,URINE TNTC /HPF
[2016-12-16] MEDS ORDERED: ONDANSETRON 4 MG/2 ML (SDV) Z0FRAN IVP ONE (21:00)
[2016-12-16] MEDS ORDERED: VANCOMYCIN INJECTION 1,000 MG in NS (IVPB) 250 ML IV ONE (21:00)
[2016-12-16] MEDS ORDERED: MEROPENEM 2,000 MG in NS (IVPB) 100 ML IV SCH (22:00)
[2016-12-16 22:30] VITALS: BP 114/51
[2016-12-16] MEDS ORDERED: D5 1/2 NS 1000 ML IV SOLUTION 1,000 ML IV ONE (22:34)
[2016-12-16] MEDS ORDERED: IBUPROFEN 800 MG (MOTRIN) TAB PO PRN (23:00)
[2016-12-16] MEDS ORDERED: ONDANSETRON 4 MG/2 ML (SDV) Z0FRAN IV PRN (23:00)
[2016-12-16] MEDS ORDERED: ACETAMINOPHEN 500 MG TAB (TYLENOL) PO PRN (23:00)
[2016-12-16 23:30] VITALS: BP 126/54
[2016-12-16] MEDS: D5 1/2 NS 1000 ML IV SOLUTION 1,000 ML IV SCH (23:30)
[2016-12-17] VITALS (11 sets, daily range): BP systolic 93–136; BP diastolic 49–70
[2016-12-17 04:56] LABS: BASOPHILS # (AUTO) 0.1 10^3/uL (0.0-0.1); BASOPHILS % (AUTO) 0 % (0-10); EOSINOPHILS # (AUTO) 0.2 10^3/uL (0.0-0.3); EOSINOPHILS % (AUTO) 1 % (0-10); LYMPHOCYTES % (AUTO) 4 % (12-44); MEAN CORPUSCULAR HEMOGLOBIN 25 PG (25-34); MEAN CORPUSCULAR HGB CONC 32 G/DL (32-36); MEAN CORPUSCULAR VOLUME 79 FL (80-99); MEAN PLATELET VOLUME 11.7 FL (7.4-10.4); MONOCYTES # (AUTO) 1.3 X 10^3 (0.0-1.0); MONOCYTES % (AUTO) 6 % (0-12); NEUTROPHILS # (AUTO) 19.9 X 10^3 (1.8-7.8); NEUTROPHILS % (AUTO) 89 % (42-75); PLATELET COUNT 137 10^3/uL (130-400); RED BLOOD COUNT 3.62 10^6/uL (4.35-5.85); RED CELL DISTRIBUTION WIDTH 19.8 % (10.0-14.5); WHITE BLOOD COUNT 22.4 10^3/uL (4.3-11.0)
[2016-12-17] MEDS ORDERED: MEROPENEM 2 GM/NS 100 ML IVPB IV SCH ×2 (05:00)
[2016-12-17 05:22] LABS: ALBUMIN 3.2 G/DL (3.2-4.5); BILIRUBIN,TOTAL 0.5 MG/DL (0.1-1.0); CALCIUM 8.1 MG/DL (8.5-10.1); CREATININE SERUM 2.1 MG/DL (0.60-1.30); POTASSIUM 5.7 MMOL/L (3.6-5.0); TOTAL PROTEIN 6.3 G/DL (6.4-8.2)
[2016-12-17] MEDS: D5 1/2 NS 1000 ML IV SOLUTION 1,000 ML IV SCH ×2 (07:05→14:54)
[2016-12-17] MEDS ORDERED: CATHETER FLUSH 10 ML SYR IV PRN (07:30)
[2016-12-17] MEDS: MEROPENEM 500 MG/NS 100 ML IVPB IV SCH ×6 (07:38→21:33)
--- NOTE | 2016-12-17 07:56 | ED General ---
General Chief Complaint: Fever-Adult/Adol Stated Complaint: SEPSIS,UTI,DEHYDRATION,RENAL INSUFFICIENCY Nursing Triage Note: PT TO ED 7 PER EMS FROM [facility], NO REPORT RECEIVED FROM FACILITY, FOR C/O ALTERED MENTAL STATUS ET FEVER. PT HAS AN INDWELLING CATH AT THIS TIME. PT A/OX3, ANSWERS ALL QUESTIONS APPROPRIATELY Nursing Sepsis Screen: Severe Sepsis Risk Source of Information: Patient (SOMEWHAT LIMITED HISTORIAN), Fpc Records, Old Records History of Present Illness Time Seen by Provider: 19:41 Initial Comments PT ARRIVES VIA EMS FROM [facility]--NO REPORT FROM [place] PT STATES SHE HAS "FELT BAD" FOR A COUPLE OF DAYS--BUT UNABLE TO STATE IN WHAT WAY THAT SHE FELT BAD. PT WITH FEVER OF 103.5 ON ARRIVAL--PT WAS UNAWARE THAT SHE HAD FEVER--AND DECREASED MENTATION PT STATES SHE HAS HAD NAUSEA AND VOMITED X 1 TODAY HAD DIARRHEA X 1 TODAY--STOOL WAS DARK C/O LOWER ABDOMINAL PAIN TONIGHT--PT HAS INDWELLING SUPRAPUBIC CATHETER PT STATES SHE HAS HAD A COUGH WITH COLORED SPUTUM STATES SHE ONLY HAS CHEST PAIN AND SHORTNESS OF BREATH WHEN SHE IS COUGHING. PT WAS ADMITTED HERE 11/22-11/25 FOR SEPSIS AND UTI PCP: DR. HOUSER--SEEN SOMETIME LAST MONTH Allergies and Home Medications Allergies Coded Allergies: Penicillins (Verified Allergy, Unknown, PT HAS RECEIVED ROCEPHIN & MEROPENEM W/O ISSUE, 10/05/16) butorphanol tartrate (Verified Allergy, Unknown, 10/05/16) ciprofloxacin (Verified Allergy, Unknown, 10/05/16) ciprofloxacin HCl (Verified Allergy, Unknown, 10/05/16) hydromorphone HCl (Verified Allergy, Unknown, 10/05/16) meperidine HCl (Verified Allergy, Unknown, 10/05/16) morphine (Verified Allergy, Unknown, 10/05/16) tetracycline (Verified Allergy, Unknown, 10/05/16) Home Medications TOP BID (Reported) Acetaminophen 325 Mg Tablet 650 MG PO Q4H PRN PRN MILD PAIN (Reported) TAKES 2 (325MG) TABLETS Amlodipine Besylate/Benazepril 1 Each Capsule 1 CAP PO 1800 (Reported) HOLD IF SYSTOLIC BP <90 OR PULSE <60 Aspirin 81 Mg Tablet.dr 81 MG PO DAILY (Reported) Baclofen 10 Mg Tab 10 MG PO TID (Reported) Benzonatate 100 Mg Capsule 100 MG PO Q6H PRN PRN COUGH (Reported) Cranberry Fruit 450 Mg Tablet 450 MG PO DAILY (Reported) Cyclosporine 1 Each Droperette 1 DROP OU BID (Reported) Esomeprazole Magnesium 40 Mg Cap 40 MG PO BID (Reported) Fexofenadine HCl 180 Mg Tablet 180 MG PO DAILY (Reported) Fluconazole 100 Mg Tablet 100 MG PO DAILY (Reported) Furosemide 40 Mg Tablet 40 MG PO DAILY (Reported) Hydrocodone/Acetaminophen 1 Each Tablet #30 1 TAB PO Q8H PRN PRN PAIN Prescribed by: KESHA TOTH on 11/25/16 1039 Lactobacillus Acidophilus 1 Each Capsule 1 CAP PO DAILY (Reported) Levothyroxine Sodium 150 Mcg Tablet 150 MCG PO 0500 (Reported) Magnesium Oxide 400 Mg Tablet 400 MG PO DAILY (Reported) Meropenem 500 Mg Vial 4Days 500 MG IV Q8H Prescribed by: KESHA TOTH on 11/25/16 1040 Mesalamine 1.2 Gm Tablet.dr 1.2 GM PO DAILY (Reported) Mesalamine 1,000 Mg Supp.rect 1 SUPP RC BID (Reported) Miconazole Nitrate 10 Gm Powder TOP PRN PRN PRN CANDIDIASIS OF SKIN AND NAILS ( Reported) APPLY TO GROIN AND PERINEAL AREA Mineral Oil/Petrolatum,White 120 Gm Cream..g. TP PRN PRN PRN RASH (Reported) Multivits,Stress Formula/Zinc 1 Each Tablet 1 TAB PO HS (Reported) Nystatin 15 Gm Cream..g. TP BID (Reported) APPLY TO GROIN AND ABDOMINAL FOLD Nystatin 15 Gm Cream..g. TP DAILY (Reported) APPLY TO GROIN AND RIGHT FOOT Nystatin 15 Gm Cream..g. TP DAILY (Reported) APPLY TO GROIN Ondansetron HCl 4 Mg Tab 4 MG PO PRN PRN PRN NAUSEA (Reported) Phenylephrine/Shk Lv/Mo/Pet,Wh 57 Gm Oint...g. RC BID (Reported) Potassium Chloride 20 Meq Tablet.er 20 MEQ PO DAILY (Reported) Pravastatin Sodium 20 Mg Tablet 20 MG PO DAILY (Reported) Pregabalin 200 Mg Capsule 200 MG PO TID (Reported) Scopolamine 1 Each Patch.td72 30Days 1.5 MG TOP Q72H Prescribed by: KESHA TOTH on 11/25/16 1039 Venlafaxine HCl 75 Mg Cap.er.24h 75 MG PO DAILY (Reported) Constitutional: see HPI malaise weakness Respiratory: see HPI cough Cardiovascular: see HPI edema Gastrointestinal: see HPI abdominal pain diarrhea loss of appetite nausea vomiting Genitourinary: see HPI Musculoskeletal: no symptoms reported Psychiatric/Neurological: Denies Headache, Pre-Existing Deficit (PARAPLEGIA) Past Krcmoai-Ulqmln-Fddkxr Hx Patient Social History Alcohol Use: Denies Use Recreational Drug Use: No Smoking Status: Never a Smoker 2nd Hand Smoke Exposure: No Recent Foreign Travel: No Contact w/Someone Who Travel: No Recent Infectious Disease Expo: No Recent Hopitalizations: No Physical Abuse Screen: No Sexual Abuse: No Immunizations Up To Date Tetanus Booster (TDap): Unknown PED Vaccines UTD: No Date of Pneumonia Vaccine: Dec 09, 2011 Date of Influenza Vaccine: Aug 15, 2016 Seasonal Allergies Seasonal Allergies: No Surgeries HX Surgeries: Yes (COLOSTOMY;SUPRAPUBIC CATHETER; PORT RIGHT CHEST) Surgeries: Abdominal, Bladder Surgery, Bowel Surgery, Hysterectomy Respiratory Hx Respiratory Disorders: Yes Respiratory Disorders: Asthma, Pneumonia, COPD Cardiovascular Hx Cardiac Disorders: Yes Cardiac Disorders: Chronic Edema/Swelling, High Cholesterol, Hypertension Neurological Hx Neurological Disorders: Yes (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 ) Blood Transfusions Hx Blood Disorders: Yes (ANEMIA) Adverse Reaction to a Blood Tr: No Family Medical History Family Medial History: Patient reports no known family medical history. Physical Exam Vital Signs Vital Sign - Last 12Hours 12/16/16 12/16/16 19:25 22:15 Temp 103.1 Pulse 113 Resp 24 B/P 154/78 Pulse Ox 92 O2 Delivery Room Air O2 Flow Rate 2 Capillary Refill : Less Than 3 Seconds General Appearance: No Apparent Distress Obese Other (LETHARGIC) HEENT: PERRL/EOMI Other (MILD EXOPHTHALMOS) Neck: Supple Respiratory: Normal Breath Sounds No Accessory Muscle Use No Respiratory Distress Cardiovascular: Regular Rate, Rhythm No Murmur Gastrointestinal: Soft Tenderness (MILD LOWER ABDOMINAL TENDERNESS) Extremity: Pedal Edema (3+ EDEMA BILATERALLY) Neurologic/Psychiatric: Alert (BUT LETHARGIC) Other (PARAPLEGIA. ) Skin: Pallor Other (VERY WARM, MOIST. SCALP PSORIASIS?) Progress/Results/Core Measures Results/Orders Lab Results Laboratory Tests Test 12/16/16 19:28 12/16/16 20:29 12/16/16 22:05 12/17/16 04:35 Range/Units Alanine Aminotransferase (ALT/SGPT) 37 29 0-55 U/L Albumin 4.1 3.2 3.2-4.5 G/DL Alkaline Phosphatase 173 H 128 40-136 U/L Amylase Level 29 25-125 U/L Anion Gap 16 H 12 5-14 MMOL/L Aspartate Amino Transf (AST/SGOT) 34 29 5-34 U/L BUN/Creatinine Ratio 29 28 Band Neutrophils 6 % Basophils # (Auto) 0.1 0.1 0.0-0.1 10^3/uL Basophils % (Manual) 1 % Basophils (%) (Auto) 0 0 0-10 % Blood Morphology Comment NORMAL Blood Urea Nitrogen 49 H 59 H 7-18 MG/DL Calcium Level 9.3 8.1 L 8.5-10.1 MG/DL Carbon Dioxide Level 18 L 20 L 21-32 MMOL/L Chloride Level 103 104 98-107 MMOL/L Creatinine 1.70 H 2.10 H 0.60-1.30 MG/DL Eosinophils # (Auto) 0.5 H 0.2 0.0-0.3 10^3/uL Eosinophils % (Manual) 2 % Eosinophils (%) (Auto) 2 1 0-10 % Estimat Glomerular Filtration Rate 29 23 Glucose Level 156 H 158 H 70-105 MG/DL Hematocrit 35 29 L 35-52 % Hemoglobin 11.2 L 9.2 L 11.5-16.0 G/DL Lactic Acid Level 2.35 *H 2.07 *H 0.50-2.00 MMOL/L Lipase 7 L 8-78 U/L Lymphocytes # (Auto) 1.3 1.0 1.0-4.0 X 10^3 Lymphocytes % (Manual) 6 % Lymphocytes (%) (Auto) 5 L 4 L 12-44 % Mean Corpuscular Hemoglobin 25 25 25-34 PG Mean Corpuscular Hemoglobin Concent 32 32 32-36 G/DL Mean Corpuscular Volume 78 L 79 L 80-99 FL Mean Platelet Volume 11.2 H 11.7 H 7.4-10.4 FL Monocytes # (Auto) 1.4 H 1.3 H 0.0-1.0 X 10^3 Monocytes % (Manual) 5 % Monocytes (%) (Auto) 5 6 0-12 % Neutrophils # (Auto) 24.5 H 19.9 H 1.8-7.8 X 10^3 Neutrophils % (Manual) 80 % Neutrophils (%) (Auto) 88 H 89 H 42-75 % Platelet Count 153 137 130-400 10^3/uL Potassium Level 5.5 H 5.7 H 3.6-5.0 MMOL/L Red Blood Count 4.44 3.62 L 4.35-5.85 10^6/uL Red Cell Distribution Width 20.3 H 19.8 H 10.0-14.5 % Sodium Level 137 136 135-145 MMOL/L Total Bilirubin 0.6 0.5 0.1-1.0 MG/DL Total Protein 7.7 6.3 L 6.4-8.2 G/DL White Blood Count 27.7 H 22.4 H 4.3-11.0 10^3/uL Urine Bacteria MODERATE H /HPF Urine Bilirubin NEGATIVE NEGATIVE Urine Casts NONE /LPF Urine Clarity SLIGHTLY CLOUDY Urine Color YELLOW Urine Crystals NONE /LPF Urine Culture Indicated YES Urine Glucose (UA) NEGATIVE NEGATIVE Urine Ketones NEGATIVE NEGATIVE Urine Leukocyte Esterase 3+ H NEGATIVE Urine Mucus NEGATIVE /LPF Urine Nitrite NEGATIVE NEGATIVE Urine Protein 3+ H NEGATIVE Urine RBC >100 H /HPF Urine RBC (Auto) 5+ H NEGATIVE Urine Specific [place] 1.015 L 1.016-1.022 Urine Squamous Epithelial Cells 2-5 /HPF Urine Urobilinogen NORMAL NORMAL MG/DL Urine WBC TNTC H /HPF Urine pH 5 5-9 Micro Results Microbiology 12/16/16 Urine Culture - Preliminary, Resulted Escherichia Coli My Orders Orders-FAVIAN GUTIERREZ DO Saline Lock/Iv-Start (12/16/16 19:44) Monitor-Rhythm Ecg Trace Only (12/16/16 19:44) Amylase (12/16/16 19:44) Cbc With Automated Diff (12/16/16 19:44) Comprehensive Metabolic Panel (12/16/16 19:44) Lactic Acid Analyzer (12/16/16 19:44) Lipase (12/16/16 19:44) Ua Culture If Indicated (12/16/16 19:44) Blood Culture (12/16/16 19:44) Influenza A And B Antigens (12/16/16 19:44) Chest 1 View, Ap/Pa Only (12/16/16 19:44) Acetaminophen Tablet (Tylenol Tablet) (12/16/16 19:45) Ibuprofen Tablet (Motrin Tablet) (12/16/16 19:45) Manual Differential (12/16/16 19:28) Urine Culture (12/16/16 20:29) Vancomycin Injection (Vancomycin Injecti (12/16/16 21:00) Meropenem (Merrem 1000 Mg) (12/16/16 22:00) Ondansetron Injection (Zofran Injectio (12/16/16 21:00) Vital Signs/I&O Vital Sign - Last 12Hours 12/16/16 12/16/16 12/16/16 12/17/16 22:15 22:30 23:30 00:46 Temp 101.4 102.4 101.1 100.1 Pulse 101 98 86 81 Resp 20 20 18 16 B/P 114/51 126/54 114/53 Pulse Ox 96 94 93 92 O2 Delivery Nasal Cannula Nasal Cannula Nasal Cannula O2 Flow Rate 2 2.00 2.00 2.00 12/17/16 12/17/16 12/17/16 12/17/16 01:04 01:30 02:30 03:30 Temp 98.9 99.4 98.3 Pulse 82 79 74 Resp 21 16 16 B/P 105/49 107/52 93/52 Pulse Ox 93 93 96 O2 Delivery Nasal Cannula Nasal Cannula Nasal Cannula Nasal Cannula O2 Flow Rate 2.00 2.00 2.00 1.50 12/17/16 12/17/16 12/17/16 12/17/16 04:30 05:30 06:35 07:14 Temp 98.9 99.2 96.6 Pulse 72 64 78 Resp 16 18 20 B/P 99/62 114/70 119/58 Pulse Ox 94 96 95 O2 Delivery Nasal Cannula Nasal Cannula Nasal Cannula O2 Flow Rate 1.50 1.50 1.50 1.50 Blood Pressure Mean: 78 Progress Note : Progress Note NO DETERIORATION IN PT'S CONDITION DURING ER STAY Diagnostic Imaging Comments CXR--NO ACUTE PROCESS, PER RADIOLOGIST REPORT @ 2032 Reviewed: Reviewed by Me Departure Communication Progress Notes 1947--ATTEMPTING TO CONTACT DR. TOTH, MESSAGE LEFT ON CELL PHONE 2019--SPOKE WITH DR. TOTH, ACCEPTS PT FOR ADMIT. Impression Impression: Primary Impression: Sepsis Additional Impressions: Recurrent UTI PERMANENT SUPRAPUBIC CATHETER Dehydration Paraplegia Disposition: ADMITTED INPATIENT Condition: Stable Decision to Admit Reason: Admit from ER (General) Decision to Admit/Date: Dec 16, 2016 Time/Decision to Admit Time: 20:20 Departure-Patient Inst. Referrals: GUS HOUSER MD (PCP) Primary Care Physician FAVIAN GUTIERREZ DO Dec 17, 2016 07:55
--- NOTE | 2016-12-17 11:35 | History & Physical-Hospitalist ---
HPI History of Present Illness: HPI/Chief Complaint CC: Fever HPI: This is a 71yoWF [facility] pt of Dr. Cole known to me from monthly hospitalizations for sepsis from UTI due to suprapubic catheter placement and diverting colostomy due to remote vertebral stroke and subsequent paralysis. Chart Review: Ucx reveals E. coli No fever Vitals stable Max fever 103 on admission WBC 22 down from 27 after placed on Meropenem empirically due to ESBL Creat 2.1 up from 1.7 Lactic acid elevated at 2.35 E. coli on Ucx CXR negative Patient Interview: Pt states that she had nausea this morning but no longer does. Pt reports having pain in her groin. Physical exam stable. Scribed by Charlie Steen under the direct supervision of Dr. Kahn. Source: patient Exam Limitations: clinical condition Date Seen 12/17/16 Attending Physician Azalea Kahn Pankaj K MD Referring Physician Date of Admission Dec 16, 2016 at 20:20 Home Medications & Allergies Home Medications Reviewed patient Home Medication Reconciliation Form Allergies Coded Allergies: Penicillins (Verified Allergy, Unknown, PT HAS RECEIVED ROCEPHIN & MEROPENEM W/O ISSUE, 10/05/16) butorphanol tartrate (Verified Allergy, Unknown, 10/05/16) ciprofloxacin (Verified Allergy, Unknown, 10/05/16) ciprofloxacin HCl (Verified Allergy, Unknown, 10/05/16) hydromorphone HCl (Verified Allergy, Unknown, 10/05/16) meperidine HCl (Verified Allergy, Unknown, 10/05/16) morphine (Verified Allergy, Unknown, 10/05/16) tetracycline (Verified Allergy, Unknown, 10/05/16) Past Cjnxilf-Lhvynk-Txkqwf Hx Patient Social History Marrital Status: Employed/Student: retired Alcohol Use: Denies Use Recreational Drug Use: No Smoking Status: Never a Smoker 2nd Hand Smoke Exposure: No Physical Abuse Screen: No Sexual Abuse: No Recent Foreign Travel: No Contact w/other who traveled: No Recent Hopitalizations: No Recent Infectious Disease Expo: No Immunizations Up To Date Tetanus Booster (TDap): Unknown Date of Pneumonia Vaccine: Dec 09, 2011 Date of Influenza Vaccine: Aug 15, 2016 Seasonal Allergies Seasonal Allergies: No Surgeries HX Surgeries: Yes (COLOSTOMY;SUPRAPUBIC CATHETER; PORT RIGHT CHEST) Surgeries: Abdominal, Bladder Surgery, Bowel Surgery, Hysterectomy Respiratory Hx Respiratory Disorders: Yes Respiratory Disorders: Asthma, Pneumonia Cardiovascular Hx Cardiovascular Disorders: Yes Cardiac Disorders: Chronic Edema/Swelling, High Cholesterol, Hypertension Neurological Hx Neurological Disorders: Yes (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 ) Blood Transfusions Hx Blood Disorders: Yes (ANEMIA) Adverse Reaction to a Blood Tr: No Family Medical History Family Hx: Patient reports no known family medical history. Review of Systems Constitutional: see HPI dizziness fever malaise weakness EENTM: no symptoms reported Respiratory: cough Cardiovascular: no symptoms reported Gastrointestinal: loss of appetite nausea vomiting Musculoskeletal: no symptoms reported Skin: no symptoms reported Psychiatric/Neurological: No Symptoms Reported All Other Systems Reviewed Negative Unless Noted: Yes Physical Exam Physical Exam Vital Signs Vital Sign - Last 12Hours 12/16/16 12/16/16 19:25 22:15 Temp 103.1 Pulse 113 Resp 24 B/P 154/78 Pulse Ox 92 O2 Delivery Room Air O2 Flow Rate 2 Capillary Refill : Less Than 3 Seconds General Appearance: No Apparent Distress WD/WN Chronically ill Obese Eyes: Bilateral Eye Normal Inspection, Bilateral Eye PERRL HEENT: PERRL/EOMI Normal ENT Inspection Pharynx Normal Neck: Full Range of Motion Normal Inspection Non Tender Supple Carotid Bruit Respiratory: Chest Non Tender Lungs Clear No Accessory Muscle Use No Respiratory Distress Decreased Breath Sounds Cardiovascular: Regular Rate, Rhythm No Edema No Gallop No JVD No Murmur Normal Peripheral Pulses Gastrointestinal: Normal Bowel Sounds No Organomegaly No Pulsatile Mass Non Tender Soft Back: Normal Inspection No CVA Tenderness No Vertebral Tenderness Extremity: Normal Capillary Refill Normal Inspection Normal Range of Motion Non Tender No Calf Tenderness No Pedal Edema Neurologic/Psychiatric: Alert Oriented x3 No Motor/Sensory Deficits Depressed Affect Skin: Normal Color Warm/Dry Lymphatic: No Adenopathy Results Results/Procedures Lab Laboratory Tests 12/16/16 19:28 12/17/16 04:35 Assessment/Plan Admission Diagnosis Assessment: Sepsis due to UTI recurrent type likely ESBL + placed on meropenem empirically 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
[2016-12-17] MEDS ORDERED: fentaNYL INJECTION 100 MCG/2 ML AMP IVP PRN (12:00)
[2016-12-17] MEDS: ENOXAPARIN 40 MG/0.4 ML (LOVENOX) SYR SC SCH (12:20)
[2016-12-17] MEDS: RT-ALBUTEROL SULF 2.5 MG/3 ML PRE-MIX VIAL INH SCH ×2 (14:06→20:37)
[2016-12-17] MEDS ORDERED: BENZONATATE 100 MG (TESSALON) CAPSULE PO PRN (15:15)
[2016-12-17] MEDS ORDERED: NON-FORMULARY MEDICATION 1 EA EA (Ondansetron HCl (Zofran) 4 MG) PO PRN (15:15)
[2016-12-17] MEDS ORDERED: ACETAMINOPHEN 325 MG TABLET/CAPLET (TYLENOL) PO PRN (15:15)
[2016-12-17] MEDS ORDERED: RX-HYDROCODONE/APAP 5/325 MG #4 TAB PK PO PRN (15:15)
[2016-12-17] MEDS ORDERED: EUCERIN CREAM 16 OZ JAR (HYDROCERIN) TP PRN (15:15)
[2016-12-17] MEDS ORDERED: HYDROcodone/APAP 5 MG/325 MG (LORTAB) TAB PO PRN (16:00)
[2016-12-17] MEDS: SCOPOLAMINE 1.5 MG (TRANSDERM-SCOP) PATCH TOP SCH (16:27)
[2016-12-17] MEDS ORDERED: ARTIFICAL TEARS 0.4 ML UNIT DOSE (REFRESH PLUS) OU PRN (16:30)
[2016-12-17] MEDS ORDERED: ONDANSETRON 4 MG (ZOFRAN) ORAL DISSOLVE TAB PO PRN (16:30)
[2016-12-17] MEDS: amLODIPine 5 MG (NORVASC) TAB PO SCH ×3 (18:00→18:38)
[2016-12-17] MEDS: BENAZEPRIL 20 MG (LOTENSIN) TAB PO SCH ×3 (18:00→18:38)
[2016-12-17] MEDS ORDERED: NON-FORMULARY MEDICATION 1 EA EA (Cyclosporine (Restasis) 1 DROP) OU SCH (21:00)
[2016-12-17] MEDS ORDERED: NON-FORMULARY MEDICATION 1 EA EA (Pregabalin (Lyrica) 200 MG) PO SCH (21:00)
[2016-12-17] MEDS ORDERED: NON-FORMULARY MEDICATION 1 EA EA (Esomeprazole Magnesium (Nexium) 40 MG) PO SCH (21:00)
[2016-12-17] MEDS: BACLOFEN 10 MG (LIORESAL) TAB PO SCH (21:25)
[2016-12-17] MEDS: PANTOPRAZOLE 40 MG (PROTONIX) TAB PO SCH (21:26)
[2016-12-17] MEDS: PREGABALIN 75 MG (LYRICA) CAP PO SCH (21:26)
[2016-12-17] MEDS: NYSTATIN CREAM (MYCOSTATIN) 30 GM TUBE TP SCH (21:27)
[2016-12-17] MEDS: MICONAZOLE 2% POWDER (DESENEX AF) 90 GM TOP SCH (21:27)
[2016-12-17] MEDS: CANASA RC SCH (21:28)
[2016-12-18] VITALS: BP 114/57
[2016-12-18] MEDS: D5 1/2 NS 1000 ML IV SOLUTION 1,000 ML IV SCH ×3 (00:18→19:46)
[2016-12-18] MEDS: RT-ALBUTEROL SULF 2.5 MG/3 ML PRE-MIX VIAL INH SCH ×4 (02:49→20:54)
[2016-12-18 04:00] VITALS: BP 106/50
[2016-12-18] MEDS: LEVOTHYROXINE 150 MCG (LEVOTHROID) TAB PO SCH (05:25)
[2016-12-18] MEDS: MEROPENEM 500 MG/NS 100 ML IVPB IV SCH ×6 (05:25→19:46)
[2016-12-18 06:42] LABS: BASOPHILS # (AUTO) 0.1 10^3/uL (0.0-0.1); BASOPHILS % (AUTO) 1 % (0-10); EOSINOPHILS # (AUTO) 1.1 10^3/uL (0.0-0.3); EOSINOPHILS % (AUTO) 12 % (0-10); LYMPHOCYTES # (AUTO) 0.8 X 10^3 (1.0-4.0); LYMPHOCYTES % (AUTO) 9 % (12-44); MEAN CORPUSCULAR HEMOGLOBIN 25 PG (25-34); MEAN CORPUSCULAR HGB CONC 31 G/DL (32-36); MEAN CORPUSCULAR VOLUME 80 FL (80-99); MEAN PLATELET VOLUME 11.4 FL (7.4-10.4); MONOCYTES # (AUTO) 1.1 X 10^3 (0.0-1.0); MONOCYTES % (AUTO) 12 % (0-12); NEUTROPHILS % (AUTO) 66 % (42-75); PLATELET COUNT 127 10^3/uL (130-400); RED BLOOD COUNT 3.53 10^6/uL (4.35-5.85); WHITE BLOOD COUNT 9.1 10^3/uL (4.3-11.0)
[2016-12-18] MEDS ORDERED: KCL 20 MEQ TAB (K-DUR) PO SCH (07:00)
[2016-12-18 07:02] LABS: BILIRUBIN,TOTAL 0.2 MG/DL (0.1-1.0); CALCIUM 8.3 MG/DL (8.5-10.1); CREATININE SERUM 1.12 MG/DL (0.60-1.30); POTASSIUM 5.4 MMOL/L (3.6-5.0); TOTAL PROTEIN 5.8 G/DL (6.4-8.2)
[2016-12-18] MEDS: MULTIVIT W/MINERALS TAB (THERAGRAN M) PO SCH (07:11)
[2016-12-18] MEDS: PANTOPRAZOLE 40 MG (PROTONIX) TAB PO SCH ×2 (07:11→21:27)
[2016-12-18 08:00] VITALS: BP 129/58
[2016-12-18] MEDS: MESALAMINE 1.2 GM TAB PO SCH (08:19)
[2016-12-18] MEDS: fluCOnazole (DIFLUCAN) 100 MG TAB PO SCH (08:19)
[2016-12-18] MEDS: VENlafaxine XR 75 MG (EFFEXOR XR) CAP PO SCH (08:19)
[2016-12-18] MEDS ORDERED: NON-FORMULARY MEDICATION 1 EA EA (Fexofenadine HCl 180 MG) PO SCH (09:00)
[2016-12-18] MEDS ORDERED: NON-FORMULARY MEDICATION 1 EA EA (Cranberry Fruit (Cranberry) 450 MG) PO SCH (09:00)
[2016-12-18] MEDS ORDERED: PRAVASTATIN SODIUM 20 MG PO SCH (09:00)
[2016-12-18] MEDS ORDERED: NON-FORMULARY MEDICATION 1 EA EA (Lactobacillus Acidophilus (Acidophilus) 1 CAP) PO SCH (09:00)
[2016-12-18] MEDS ORDERED: NON-FORMULARY MEDICATION 1 EA EA (Potassium Chloride 20 MEQ) PO SCH (09:00)
[2016-12-18] MEDS ORDERED: NYSTATIN CREAM (MYCOSTATIN) 30 GM TUBE TP SCH (09:00)
[2016-12-18] MEDS: CANASA RC SCH ×2 (09:59→22:23)
[2016-12-18] MEDS: LORATADINE (CLARITIN) 10 MG TAB PO SCH (10:00)
[2016-12-18] MEDS: LACTOBACILLUS Acidoph/Bulgar (LACTINEX/FLORANEX) TAB PO SCH (10:00)
[2016-12-18] MEDS: ASPIRIN E.C. 81 MG (ECOTRIN) TAB PO SCH (10:00)
[2016-12-18] MEDS: ATORVASTATIN 10 MG (LIPITOR) TABLET PO SCH (10:00)
[2016-12-18] MEDS: PREGABALIN 75 MG (LYRICA) CAP PO SCH ×2 (10:01→21:27)
[2016-12-18] MEDS: MAGNESIUM OXIDE (MAG-OX)400 MG TAB PO SCH (10:01)
[2016-12-18] MEDS: BACLOFEN 10 MG (LIORESAL) TAB PO SCH ×3 (10:01→21:27)
[2016-12-18] MEDS: MICONAZOLE 2% POWDER (DESENEX AF) 90 GM TOP SCH ×2 (10:15→21:28)
--- NOTE | 2016-12-18 10:43 | Progress Note-Hospitalist ---
Progress Note HPI/CC on Admission CC: Fever HPI: This is a 71yoWF [facility] pt of Dr. Cole known to me from monthly hospitalizations for sepsis from UTI due to suprapubic catheter placement and diverting colostomy due to remote vertebral stroke and subsequent paralysis. Chart Review: Ucx reveals E. coli No fever Vitals stable Max fever 103 on admission WBC 22 down from 27 after placed on Meropenem empirically due to ESBL Creat 2.1 up from 1.7 Lactic acid elevated at 2.35 E. coli on Ucx CXR negative Patient Interview: Pt states that she had nausea this morning but no longer does. Pt reports having pain in her groin. Physical exam stable. Scribed by Charlie Steen under the direct supervision of Dr. Kahn. 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 Hypothyroidism previous myxedema coma 10/25 Nausea Depression Extremely poor prognosis Diagonsis/Assessment & Plan Patient doing much better and is at the bedside Denies any pain except for right ear pain but no drainage Microbiology contacted me regarding blood cultures that look like Pseudomonas and based on clinical exam and white count that was normal today and resolved creatinine elevation I will maintain meropenem for now because I had originally contemplated adding gentamicin but will await final cultures but meropenem should cover based on clinical improvement Colostomy working well Suprapubic catheter in place No fever, vital signs stable, improved, chronically ill, pale Regular rate rhythm, clear to auscultation bilaterally with poor air expansion Nonpitting edema Laboratory Tests 12/18/16 06:25 Assessment: Sepsis due to UTI recurrent type likely ESBL + placed on meropenem empirically but blood cultures possibly Pseudomonas likely sensitive to meropenem due to clinical improvement 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
[2016-12-18] MEDS ORDERED: SOD POLYSTERENE 15 GM/60 ML (KAYEXALATE) UNIT DOSE PO NR (10:45)
[2016-12-18] MEDS: NYSTATIN CREAM (MYCOSTATIN) 30 GM TUBE TP SCH ×3 (11:40→21:28)
[2016-12-18 12:00] VITALS: BP 107/57
[2016-12-18] MEDS: ENOXAPARIN 40 MG/0.4 ML (LOVENOX) SYR SC SCH (12:58)
[2016-12-18 16:00] VITALS: BP 119/58
[2016-12-18 20:47] VITALS: BP 126/58
[2016-12-19] VITALS: BP 122/61
[2016-12-19] MEDS: MEROPENEM 500 MG/NS 100 ML IVPB IV SCH ×8 (01:19→21:01)
[2016-12-19] MEDS: RT-ALBUTEROL SULF 2.5 MG/3 ML PRE-MIX VIAL INH SCH ×4 (03:13→19:19)
[2016-12-19 04:00] VITALS: BP 139/64
[2016-12-19] MEDS: LEVOTHYROXINE 150 MCG (LEVOTHROID) TAB PO SCH (06:14)
[2016-12-19] MEDS: PANTOPRAZOLE 40 MG (PROTONIX) TAB PO SCH ×2 (06:14→21:02)
[2016-12-19 06:27] LABS: BASOPHILS # (AUTO) 0.1 10^3/uL (0.0-0.1); BASOPHILS % (AUTO) 1 % (0-10); EOSINOPHILS # (AUTO) 1.2 10^3/uL (0.0-0.3); EOSINOPHILS % (AUTO) 14 % (0-10); LYMPHOCYTES # (AUTO) 0.8 X 10^3 (1.0-4.0); LYMPHOCYTES % (AUTO) 10 % (12-44); MEAN CORPUSCULAR HEMOGLOBIN 25 PG (25-34); MEAN CORPUSCULAR HGB CONC 31 G/DL (32-36); MEAN CORPUSCULAR VOLUME 80 FL (80-99); MEAN PLATELET VOLUME 10.8 FL (7.4-10.4); MONOCYTES % (AUTO) 12 % (0-12); NEUTROPHILS # (AUTO) 5.1 X 10^3 (1.8-7.8); NEUTROPHILS % (AUTO) 63 % (42-75); PLATELET COUNT 129 10^3/uL (130-400); RED CELL DISTRIBUTION WIDTH 20.1 % (10.0-14.5); WHITE BLOOD COUNT 8.1 10^3/uL (4.3-11.0)
[2016-12-19 06:45] LABS: ALANINE AMINOTRANSFERASE 30 U/L (0-55); ANION GAP 9 MMOL/L (5-14); ASPARTATE AMINO TRANSFERASE 28 U/L (5-34); BILIRUBIN,TOTAL 0.2 MG/DL (0.1-1.0); BLOOD UREA NITROGEN 26 MG/DL (7-18); BUN/CREATININE RATIO 32; CALCIUM 8.5 MG/DL (8.5-10.1); CARBON DIOXIDE 24 MMOL/L (21-32); CHLORIDE 112 MMOL/L (98-107); CREATININE SERUM 0.82 MG/DL (0.60-1.30); GFR ESTIMATED > 60; GLUCOSE 104 MG/DL (70-105); POTASSIUM 4.7 MMOL/L (3.6-5.0); SODIUM 145 MMOL/L (135-145); TOTAL PROTEIN 5.8 G/DL (6.4-8.2)
[2016-12-19] MEDS: D5 1/2 NS 1000 ML IV SOLUTION 1,000 ML IV SCH ×3 (07:00→16:19)
[2016-12-19 08:50] VITALS: BP 145/62
[2016-12-19] MEDS: fluCOnazole (DIFLUCAN) 100 MG TAB PO SCH (08:53)
[2016-12-19] MEDS: VENlafaxine XR 75 MG (EFFEXOR XR) CAP PO SCH (08:53)
[2016-12-19] MEDS: MULTIVIT W/MINERALS TAB (THERAGRAN M) PO SCH (08:53)
[2016-12-19] MEDS: MESALAMINE 1.2 GM TAB PO SCH (08:54)
[2016-12-19] MEDS: ATORVASTATIN 10 MG (LIPITOR) TABLET PO SCH (10:06)
[2016-12-19] MEDS: PREGABALIN 75 MG (LYRICA) CAP PO SCH ×2 (10:07→21:02)
[2016-12-19] MEDS: LACTOBACILLUS Acidoph/Bulgar (LACTINEX/FLORANEX) TAB PO SCH (10:08)
[2016-12-19] MEDS: LORATADINE (CLARITIN) 10 MG TAB PO SCH (10:08)
[2016-12-19] MEDS: CANASA RC SCH ×2 (10:08→21:02)
[2016-12-19] MEDS: ASPIRIN E.C. 81 MG (ECOTRIN) TAB PO SCH (10:09)
[2016-12-19] MEDS: MICONAZOLE 2% POWDER (DESENEX AF) 90 GM TOP SCH ×2 (10:13→21:04)
[2016-12-19] MEDS: NYSTATIN CREAM (MYCOSTATIN) 30 GM TUBE TP SCH ×3 (10:14→21:04)
[2016-12-19] MEDS: BACLOFEN 10 MG (LIORESAL) TAB PO SCH ×3 (10:22→21:02)
[2016-12-19] MEDS: MAGNESIUM OXIDE (MAG-OX)400 MG TAB PO SCH (10:26)
[2016-12-19 12:00] VITALS: BP 134/61
--- NOTE | 2016-12-19 12:58 | Progress Note-Hospitalist ---
Progress Note HPI/CC on Admission CC: Fever HPI: This is a 71yoWF NH pt of Dr. Cole known to me from monthly hospitalizations for sepsis from UTI due to suprapubic catheter placement and diverting colostomy due to remote vertebral stroke and subsequent paralysis. Chart Review: Ucx reveals E. coli No fever Vitals stable Max fever 103 on admission WBC 22 down from 27 after placed on Meropenem empirically due to ESBL Creat 2.1 up from 1.7 Lactic acid elevated at 2.35 E. coli on Ucx CXR negative Patient Interview: Pt states that she had nausea this morning but no longer does. Pt reports having pain in her groin. Physical exam stable. Scribed by Charlie Steen under the direct supervision of Dr. Kahn. 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 Hypothyroidism previous myxedema coma 10/25 Nausea Depression Extremely poor prognosis Diagonsis/Assessment & Plan Patient doing much better a Denies any pain Colostomy working well and actually had spillage from ostomy site currently being cleaned Suprapubic catheter in place No fever, vital signs stable, improved, chronically ill, pale Regular rate rhythm, clear to auscultation bilaterally with poor air expansion Nonpitting edema Laboratory Tests 12/19/16 06:20 Assessment: Sepsis due to UTI recurrent type likely ESBL + placed on meropenem empirically but blood cultures confirmed Pseudomonas and sensitive to meropenem as predicted yesterday due to clinical improvement 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
[2016-12-19] MEDS: ENOXAPARIN 40 MG/0.4 ML (LOVENOX) SYR SC SCH (13:34)
[2016-12-19 16:00] VITALS: BP 132/60
[2016-12-19] MEDS: amLODIPine 5 MG (NORVASC) TAB PO SCH (18:26)
[2016-12-19] MEDS: BENAZEPRIL 20 MG (LOTENSIN) TAB PO SCH (18:26)
[2016-12-19 20:00] VITALS: BP 149/64
[2016-12-20 00:39] VITALS: BP 142/63
[2016-12-20] MEDS: D5 1/2 NS 1000 ML IV SOLUTION 1,000 ML IV SCH ×4 (02:11→22:00)
[2016-12-20] MEDS: MEROPENEM 500 MG/NS 100 ML IVPB IV SCH ×8 (02:11→20:17)
[2016-12-20] MEDS: RT-ALBUTEROL SULF 2.5 MG/3 ML PRE-MIX VIAL INH SCH ×4 (02:34→22:36)
[2016-12-20] MEDS: LEVOTHYROXINE 150 MCG (LEVOTHROID) TAB PO SCH (05:08)
[2016-12-20 05:16] VITALS: BP 140/64
[2016-12-20 05:34] LABS: BASOPHILS # (AUTO) 0.1 10^3/uL (0.0-0.1); BASOPHILS % (AUTO) 2 % (0-10); EOSINOPHILS # (AUTO) 1.3 10^3/uL (0.0-0.3); EOSINOPHILS % (AUTO) 17 % (0-10); LYMPHOCYTES # (AUTO) 0.9 X 10^3 (1.0-4.0); LYMPHOCYTES % (AUTO) 11 % (12-44); MEAN CORPUSCULAR HEMOGLOBIN 25 PG (25-34); MEAN CORPUSCULAR HGB CONC 31 G/DL (32-36); MEAN CORPUSCULAR VOLUME 80 FL (80-99); MEAN PLATELET VOLUME 11.4 FL (7.4-10.4); MONOCYTES # (AUTO) 0.9 X 10^3 (0.0-1.0); MONOCYTES % (AUTO) 12 % (0-12); NEUTROPHILS # (AUTO) 4.4 X 10^3 (1.8-7.8); NEUTROPHILS % (AUTO) 57 % (42-75); PLATELET COUNT 150 10^3/uL (130-400); RED BLOOD COUNT 3.56 10^6/uL (4.35-5.85); RED CELL DISTRIBUTION WIDTH 19.5 % (10.0-14.5); WHITE BLOOD COUNT 7.6 10^3/uL (4.3-11.0)
[2016-12-20 05:57] LABS: ALANINE AMINOTRANSFERASE 30 U/L (0-55); ANION GAP 10 MMOL/L (5-14); ASPARTATE AMINO TRANSFERASE 26 U/L (5-34); BILIRUBIN,TOTAL 0.2 MG/DL (0.1-1.0); BLOOD UREA NITROGEN 18 MG/DL (7-18); BUN/CREATININE RATIO 24; CALCIUM 8.5 MG/DL (8.5-10.1); CARBON DIOXIDE 24 MMOL/L (21-32); CHLORIDE 111 MMOL/L (98-107); CREATININE SERUM 0.75 MG/DL (0.60-1.30); GFR ESTIMATED > 60; GLUCOSE 115 MG/DL (70-105); SODIUM 145 MMOL/L (135-145); TOTAL PROTEIN 5.8 G/DL (6.4-8.2)
[2016-12-20] MEDS: MULTIVIT W/MINERALS TAB (THERAGRAN M) PO SCH (06:09)
[2016-12-20] MEDS: PANTOPRAZOLE 40 MG (PROTONIX) TAB PO SCH ×2 (06:09→22:01)
[2016-12-20 08:00] VITALS: BP 159/80
[2016-12-20] MEDS: LACTOBACILLUS Acidoph/Bulgar (LACTINEX/FLORANEX) TAB PO SCH (08:47)
[2016-12-20] MEDS: LORATADINE (CLARITIN) 10 MG TAB PO SCH (08:48)
[2016-12-20] MEDS: ASPIRIN E.C. 81 MG (ECOTRIN) TAB PO SCH (08:48)
[2016-12-20] MEDS: fluCOnazole (DIFLUCAN) 100 MG TAB PO SCH (08:48)
[2016-12-20] MEDS: VENlafaxine XR 75 MG (EFFEXOR XR) CAP PO SCH (08:48)
[2016-12-20] MEDS: MAGNESIUM OXIDE (MAG-OX)400 MG TAB PO SCH (08:48)
[2016-12-20] MEDS: PREGABALIN 75 MG (LYRICA) CAP PO SCH ×2 (08:48→22:01)
[2016-12-20] MEDS: ATORVASTATIN 10 MG (LIPITOR) TABLET PO SCH (08:48)
[2016-12-20] MEDS: BACLOFEN 10 MG (LIORESAL) TAB PO SCH ×3 (08:48→22:00)
[2016-12-20] MEDS: CANASA RC SCH ×2 (08:49→22:02)
[2016-12-20] MEDS: MESALAMINE 1.2 GM TAB PO SCH (08:50)
[2016-12-20] MEDS: NYSTATIN CREAM (MYCOSTATIN) 30 GM TUBE TP SCH ×3 (08:51→22:01)
[2016-12-20] MEDS: MICONAZOLE 2% POWDER (DESENEX AF) 90 GM TOP SCH ×2 (08:52→22:02)
--- NOTE | 2016-12-20 09:33 | Progress Note-Hospitalist ---
Progress Note HPI/CC on Admission CC: Fever HPI: This is a 71yoWF [facility] pt of Dr. Cole known to me from monthly hospitalizations for sepsis from UTI due to suprapubic catheter placement and diverting colostomy due to remote vertebral stroke and subsequent paralysis. Chart Review: Ucx reveals E. coli No fever Vitals stable Max fever 103 on admission WBC 22 down from 27 after placed on Meropenem empirically due to ESBL Creat 2.1 up from 1.7 Lactic acid elevated at 2.35 E. coli on Ucx CXR negative Patient Interview: Pt states that she had nausea this morning but no longer does. Pt reports having pain in her groin. Physical exam stable. Scribed by Charlie Steen under the direct supervision of Dr. Kahn. 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 Hypothyroidism previous myxedema coma 10/25 Nausea Depression Extremely poor prognosis Diagonsis/Assessment & Plan Wants the patch replaced since he helps her with her nausea that she has chronically Denies any pain Colostomy working well and actually had spillage from ostomy site currently being cleaned Suprapubic catheter in place No fever, vital signs stable, improved, chronically ill, pale Regular rate rhythm, clear to auscultation bilaterally with poor air expansion Nonpitting edema Laboratory Tests 12/20/16 05:25 Assessment: Sepsis due to UTI recurrent type likely ESBL + placed on meropenem empirically but blood cultures confirmed Pseudomonas and sensitive to meropenem as predicted due to clinical improvement 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
[2016-12-20] MEDS ORDERED: ARTIFICAL TEARS 0.4 ML UNIT DOSE (REFRESH PLUS) OU PRN (10:00)
[2016-12-20 12:00] VITALS: BP 158/68
[2016-12-20] MEDS: ENOXAPARIN 40 MG/0.4 ML (LOVENOX) SYR SC SCH (12:28)
[2016-12-20] MEDS: SCOPOLAMINE 1.5 MG (TRANSDERM-SCOP) PATCH TOP SCH (14:15)
[2016-12-20] MEDS ORDERED: SCOPOLAMINE PATCH REMOVAL TP SCH (15:14)
[2016-12-20 16:10] VITALS: BP 150/71
[2016-12-20] MEDS: amLODIPine 5 MG (NORVASC) TAB PO SCH (17:00)
[2016-12-20] MEDS: BENAZEPRIL 20 MG (LOTENSIN) TAB PO SCH (17:00)
[2016-12-20 20:00] VITALS: BP 144/66
[2016-12-21] VITALS: BP 142/66
[2016-12-21] MEDS: RT-ALBUTEROL SULF 2.5 MG/3 ML PRE-MIX VIAL INH SCH ×3 (02:52→14:51)
[2016-12-21] MEDS: MEROPENEM 500 MG/NS 100 ML IVPB IV SCH ×6 (03:05→13:38)
[2016-12-21 04:00] VITALS: BP 145/67
[2016-12-21] MEDS: MULTIVIT W/MINERALS TAB (THERAGRAN M) PO SCH (05:28)
[2016-12-21] MEDS: PANTOPRAZOLE 40 MG (PROTONIX) TAB PO SCH (05:28)
[2016-12-21] MEDS: LEVOTHYROXINE 150 MCG (LEVOTHROID) TAB PO SCH (05:28)
[2016-12-21] MEDS: D5 1/2 NS 1000 ML IV SOLUTION 1,000 ML IV SCH (07:04)
[2016-12-21 08:00] VITALS: BP 145/67
[2016-12-21] MEDS: ATORVASTATIN 10 MG (LIPITOR) TABLET PO SCH (08:45)
[2016-12-21] MEDS: ASPIRIN E.C. 81 MG (ECOTRIN) TAB PO SCH (08:45)
[2016-12-21] MEDS: VENlafaxine XR 75 MG (EFFEXOR XR) CAP PO SCH (08:45)
[2016-12-21] MEDS: LACTOBACILLUS Acidoph/Bulgar (LACTINEX/FLORANEX) TAB PO SCH (08:46)
[2016-12-21] MEDS: fluCOnazole (DIFLUCAN) 100 MG TAB PO SCH (08:46)
[2016-12-21] MEDS: LORATADINE (CLARITIN) 10 MG TAB PO SCH (08:46)
[2016-12-21] MEDS: MAGNESIUM OXIDE (MAG-OX)400 MG TAB PO SCH (08:46)
[2016-12-21] MEDS: MESALAMINE 1.2 GM TAB PO SCH (08:46)
[2016-12-21] MEDS: PREGABALIN 75 MG (LYRICA) CAP PO SCH (08:46)
[2016-12-21] MEDS: BACLOFEN 10 MG (LIORESAL) TAB PO SCH ×2 (08:46→13:38)
[2016-12-21] MEDS ORDERED: MERO500V3 IV (08:47)
[2016-12-21] MEDS ORDERED: HYDR-3812 PO (08:47)
[2016-12-21] MEDS: NYSTATIN CREAM (MYCOSTATIN) 30 GM TUBE TP SCH ×2 (08:50→09:08)
[2016-12-21] MEDS: MICONAZOLE 2% POWDER (DESENEX AF) 90 GM TOP SCH (08:50)
--- NOTE | 2016-12-21 08:50 | Discharge Inst-Skilled Nursing ---
Discharge Inst-Skilled NF Chief Complaint CC: Fever HPI: This is a 71yoWF NH pt of Dr. Cole known to me from monthly hospitalizations for sepsis from UTI due to suprapubic catheter placement and diverting colostomy due to remote vertebral stroke and subsequent paralysis. Chart Review: Ucx reveals E. coli No fever Vitals stable Max fever 103 on admission WBC 22 down from 27 after placed on Meropenem empirically due to ESBL Creat 2.1 up from 1.7 Lactic acid elevated at 2.35 E. coli on Ucx CXR negative Patient Interview: Pt states that she had nausea this morning but no longer does. Pt reports having pain in her groin. Physical exam stable. Scribed by Charlie Steen under the direct supervision of Dr. Kahn. Patient Instructions Patient Problems: Pseudomonas sepsis UTI E coli ESBL+ Goal: Strengthen Patient Instructions: IV antibiotics 4 more days Consult/Follow Up/Orders Follow Up Appt.: Dr Cole Skilled NF Admit to: [facility] Certification (SNF) I certify that SNF services are required to be given on an inpatient basis because of the above named patient's need for senior living care on a continuing basis for the conditions(s) for which he/she was receiving inpatient hospital services prior to his/her transfer to the SNF. Group Home Facility Order: Nursing Services, Wound Care-Eval/Treat Daily Activity as Tolerated: Yes New & Resume Previous Orders Azalea Kahn Dec 21, 2016 08:49 AZALEA KAHN DO Dec 21, 2016 08:50
--- NOTE | 2016-12-21 08:51 | Discharge Summary-Hospitalist ---
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 Hypothyroidism previous myxedema coma 10/25 Nausea Depression Extremely poor prognosis Discharge Diagnosis Assessment: Sepsis due to UTI recurrent type likely ESBL + placed on meropenem empirically but blood cultures confirmed Pseudomonas and sensitive to meropenem as predicted due to clinical improvement 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 Anemia requiring transfusions in the past Neurogenic bladder requiring SP cath w/chronic UTI 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 Hypothyroidism previous myxedema coma 10/25 Nausea Depression Hyperkalemia s/p Right ear pain of unknown source placing cotton ball for comfort Wants the patch replaced since he helps her with her nausea that she has chronically Denies any pain Colostomy working well and actually had spillage from ostomy site currently being cleaned Suprapubic catheter in place No fever, vital signs stable, improved, chronically ill, pale Regular rate rhythm, clear to auscultation bilaterally with poor air expansion Nonpitting edema Laboratory Tests 12/20/16 05:25 Assessment: Sepsis due to UTI recurrent type likely ESBL + placed on meropenem empirically but blood cultures confirmed Pseudomonas and sensitive to meropenem as predicted due to clinical improvement 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 Cole known to me from monthly hospitalizations for sepsis from UTI due to suprapubic catheter placement and diverting colostomy due to remote vertebral stroke and subsequent paralysis. Chart Review: Ucx reveals E. coli No fever Vitals stable Max fever 103 on admission WBC 22 down from 27 after placed on Meropenem empirically due to ESBL Creat 2.1 up from 1.7 Lactic acid elevated at 2.35 E. coli on Ucx CXR negative Patient Interview: Pt states that she had nausea this morning but no longer does. Pt reports having pain in her groin. Physical exam stable. Scribed by Charlie Steen under the direct supervision of Dr. Toth. Note from 12/21/16: Patient doing about the same but overall decline since last admission due to the recurrence of this resistant organism placing major stress on her body and eventually will be unrecoverable Colostomy working well Needs 4 more days of meropenem and correction can accommodate that via her port Reconcile all home meds and discharged on pain medication to take as needed No fever, vital signs stable, pleasant chronically ill, decline since last exam No edema Hospital course: Patient had a standard hospital course she was hospitalized placed on meropenem empirically due to ESBL positive and history of resistant type of organisms from recurrent UTIs from paralysis status post suprapubic catheter and diverting colostomy managing complications following remote vertebral artery stroke causing subsequent paralysis. Pseudomonas did appear on blood cultures on final analysis sensitive to meropenem. Leukocytosis improved and overall she improved as much as possible but considering the recurrent hospitalizations due to resistant bacterial organisms she is much declined and likely will have a very poor prognosis and eventually unrecoverable. She'll be sent back to the correction to complete 4 more days of meropenem and will be on Dr. Choi's service. Discharge Summary Discharge Physical Examination Allergies: Coded Allergies: Penicillins (Verified Allergy, Unknown, PT HAS RECEIVED ROCEPHIN & MEROPENEM W/O ISSUE, 10/05/16) butorphanol tartrate (Verified Allergy, Unknown, 10/05/16) ciprofloxacin (Verified Allergy, Unknown, 10/05/16) ciprofloxacin HCl (Verified Allergy, Unknown, 10/05/16) hydromorphone HCl (Verified Allergy, Unknown, 10/05/16) meperidine HCl (Verified Allergy, Unknown, PT HAS RECEIVED FENTANYL IN THE PAST, 12/17/16) morphine (Verified Allergy, Unknown, 10/05/16) tetracycline (Verified Allergy, Unknown, 10/05/16) Vitals & I&Os Vital Signs Date Time Temp Pulse Resp B/P Pulse Ox O2 Delivery O2 Flow Rate FiO2 12/21/16 08:00 97.8 67 16 145/67 94 Room Air 3/12/17 21:10 1.00 Hospital Course Labs (last 24 hrs) Microbiology 12/16/16 Blood Culture - Preliminary, Resulted Pseudomonas Aeruginosa 12/16/16 Urine Culture - Final, Complete Escherichia Coli Discharge Home Medications: Active Scripts Active Meropenem 500 Mg Vial 500 Mg IV Q8H 4 Days Hydrocodon -Acetaminophen 5-325 (Hydrocodone/Acetaminophen) 1 Each Tablet 15 Tab PO Q8H PRN Transderm-Scop (Scopolamine) 1 Each Patch.td72 1.5 Mg TOP Q72H 30 Days Reported [Z-Guard] TOP BID Nystatin 15 Gm Cream..g. TP DAILY APPLY TO GROIN Nystatin 15 Gm Cream..g. TP DAILY APPLY TO GROIN AND RIGHT FOOT Nystatin 15 Gm Cream..g. TP BID APPLY TO GROIN AND ABDOMINAL FOLD Hemorrhoidal Ointment (Phenylephrine/Shk Lv/Mo/Pet,Wh) 57 Gm Oint...g. RC BID Fluconazole 100 Mg Tablet 100 Mg PO DAILY Fexofenadine HCl 180 Mg Tablet 180 Mg PO DAILY Restasis (Cyclosporine) 1 Each Droperette 1 Drop OU BID Benzonatate 100 Mg Capsule 100 Mg PO Q6H PRN Zofran (Ondansetron HCl) 4 Mg Tab 4 Mg PO PRN PRN Tylenol (Acetaminophen) 325 Mg Tablet 650 Mg PO Q4H PRN TAKES 2 (325MG) TABLETS Miconazole Nitrate 10 Gm Powder TOP PRN PRN APPLY TO GROIN AND PERINEAL AREA Eucerin Creme (Mineral Oil/Petrolatum,White) 120 Gm Cream..g. TP PRN PRN Levothyroxine Sodium 150 Mcg Tablet 150 Mcg PO 0500 Venlafaxine HCl ER (Venlafaxine HCl) 75 Mg Cap.er.24h 75 Mg PO DAILY Potassium Chloride 20 Meq Tablet.er 20 Meq PO DAILY Cranberry (Cranberry Fruit) 450 Mg Tablet 450 Mg PO DAILY Nexium (Esomeprazole Magnesium) 40 Mg Cap 40 Mg PO BID Stress Formula with Zinc Tab (Multivits,Stress Formula/Zinc) 1 Each Tablet 1 Tab PO HS Aspir 81 (Aspirin) 81 Mg Tablet.dr 81 Mg PO DAILY Acidophilus (Lactobacillus Acidophilus) 1 Each Capsule 1 Cap PO DAILY Canasa (Mesalamine) 1,000 Mg Supp.rect 1 Supp RC BID Pravachol (Pravastatin Sodium) 20 Mg Tablet 20 Mg PO DAILY Lyrica (Pregabalin) 200 Mg Capsule 200 Mg PO TID Lioresal Tablet (Baclofen) 10 Mg Tab 10 Mg PO TID Furosemide 40 Mg Tablet 40 Mg PO DAILY Lialda (Mesalamine) 1.2 Gm Tablet.dr 1.2 Gm PO DAILY Mag Ox 400 (Magnesium Oxide) 400 Mg Tablet 400 Mg PO DAILY Lotrel 5-40 Mg Capsule (Amlodipine/Benazepril HCl) 1 Each Capsule 1 Cap PO 1800 HOLD IF SYSTOLIC BP <90 OR PULSE <60 Instructions to patient/family Please see electonic discharge instructions given to patient. Clinical Quality Measures DVT/VTE Risk/Contraindication: Risk Factor Score Per Nursin RFS Level Per Nursing on Admit: 4+=Very High KESHA TOTH DO Dec 21, 2016 08:51
[2016-12-21] MEDS: CANASA RC SCH (09:00)
[2016-12-21 12:00] VITALS: BP 139/63
[2016-12-21] MEDS: ENOXAPARIN 40 MG/0.4 ML (LOVENOX) SYR SC SCH (12:00)
[2016-12-21 15:37] VITALS: BP 139/63
[2017-01-27] MEDS ORDERED: HYDR-3812 PO (10:49)
[2017-01-27] MEDS ORDERED: IPRA3AMP INH (10:49)
== END 2016-12-21 15:20 | DRG 698 ==
LOC: EDUNIT# 19:23 → ER 19:24 → 4TH 20:20
PROVIDERS: ADMIT Internal Medicine; ATTEND Internal Medicine
DX: T83.510A Infection and inflammatory reaction due to cystostomy catheter, initial encounter (principal); A41.51 Sepsis due to Escherichia coli [E. coli]; N39.0 Urinary tract infection, site not specified; G82.20 Paraplegia, unspecified; N31.9 Neuromuscular dysfunction of bladder, unspecified; Z68.41 Body mass index [BMI] 40.0-44.9, adult; J45.909 Unspecified asthma, uncomplicated; I10 Essential (primary) hypertension; D64.9 Anemia, unspecified; E03.9 Hypothyroidism, unspecified; E78.00 Pure hypercholesterolemia, unspecified; E66.9 Obesity, unspecified; F32.9 Major depressive disorder, single episode, unspecified; B37.2 Candidiasis of skin and nail; K59.09 Other constipation; K21.9 Gastro-esophageal reflux disease without esophagitis; E86.0 Dehydration; Z93.50 Unspecified cystostomy status; Z93.3 Colostomy status; Z86.69 Personal history of other diseases of the nervous system and sense organs; Z85.3 Personal history of malignant neoplasm of breast; E87.5 Hyperkalemia; H92.01 Otalgia, right ear; R11.0 Nausea
CPT/HCPCS: 36415; 71010; 80053; 81000; 82150; 83605; 83690; 85007; 85025; 85027; 87040; 87077; 87088; 87186; 94640; 94760; 96374; 96375

== ENCOUNTER 2017-01-11 15:42 | Outpatient (RCR) | payer MEDICARE, MEDICAID ==
[2017-01-24] MEDS ORDERED: HYDR-3812 PO (09:18)
[2017-01-24] MEDS ORDERED: PHEN57OI3 RC (09:18)
[2017-01-24] MEDS ORDERED: ZINC28PA TP (09:18)
[2017-01-24] MEDS ORDERED: MAGN500C15 PO (09:18)
[2017-01-24] MEDS ORDERED: FLUC100T PO (09:21)
[2017-01-24] MEDS ORDERED: TRIA15CR TP (09:28)
[2017-01-27] MEDS ORDERED: IPRA3AMP INH (10:49)
[2017-01-27] MEDS ORDERED: HYDR-3812 PO (10:49)
== END 2017-01-27 16:00 | disposition home or self-care (01) ==
LOC: WOUNDCARE 15:42
PROVIDERS: ATTEND Nurse Practitioner
DX: L89.151 Pressure ulcer of sacral region, stage 1 (principal); B35.8 Other dermatophytoses; E66.01 Morbid (severe) obesity due to excess calories; Z68.41 Body mass index [BMI] 40.0-44.9, adult
CPT/HCPCS: 99213

== ENCOUNTER → 2017-04-09 | Outpatient (CLI) | payer MEDICARE, MEDICAID ==
[~2017-04-09] MED LIST changes: +BETA15CR3 TP; +DIPH25TA31 PO; +FLUC100T PO; +IPRA3AMP INH; -KETO15CR TP; +KETO15CR2 TP; +MAGN500C15 PO; +MICO10PO TP; +RANI150T11 PO; +TRIA15CR TP
[2017-04-09 10:50] LABS: BILIRUBIN,URINE NEGATIVE (NEGATIVE); KETONES,URINE NEGATIVE (NEGATIVE); LEUKOCYTE ESTERASE ,URINE 3+ (NEGATIVE); NITRITE,URINE NEGATIVE (NEGATIVE); PH,URINE 6 (5-9); PROTEIN,URINE 3+ (NEGATIVE); UROBILINOGEN,URINE NORMAL (NORMAL)
[2017-04-09 11:02] LABS: WBC,URINE TNTC /HPF
== END ==
PROVIDERS: ATTEND Family Medicine
DX: N31.9 Neuromuscular dysfunction of bladder, unspecified (principal)
CPT/HCPCS: 81000; 87077; 87088; 87186

== ENCOUNTER 2017-07-30 08:56 | Emergency (ER) | payer MEDICARE, MEDICAID ==
[~2017-07-30] VITALS: Ht 172.7 cm; Wt 136.1 kg
[~2017-07-30 08:56] MED LIST changes: +AMLO-119 PO; +BACL10TA PO; +ESOM40CA52 PO; +LEVO175T5 PO; +LORA2ORA PO; +MESA1.2T3 PO; +MORP100S3 PO; +POTA20TA15 PO; +PRAV20TA3 PO; +SILV480G TP
--- OUTSIDE RECORDS SUMMARY | 2017-07-30 09:03 | XMS REPORT | Clinical Summary ---
Author Author [facility] Organization [facility] Address Unknown Phone Unavailable Care Team Providers Care Support Worker Name Role Phone PCP Unavailable Source Comments Some departments are not documenting in the electronic medical record. If you do not see the information that you expected, contact Release of Information in the Health Information Management department at [phone] for further assistance in locating additional records.[facility] Allergies Active Allergy Reactions Severity Noted Date Comments Hydromorphone HALLUCINATIONS High 12/19/2014 Morphine HALLUCINATIONS High 12/19/2014 Butorphanol Tartrate HALLUCINATIONS High 12/19/2014 Penicillins RASH Medium 12/19/2014 Tetracycline RASH Medium 12/19/2014 Meperidine SEE COMMENTS Low 12/19/2014 Increased heart rate Current Medications Prescription Sig. Disp. Refills Start [...] & Plan: stable. IOLs well positioned. Observe Family History Medical History Relation Name Comments Diabetes Brother Cataract Father Coronary Artery Disease Father Hypertension Father Stroke Father Blindness Mother Cataract Mother Glaucoma Mother Hypertension Mother Cancer Sister Relation Name Status Comments Brother Father Mother Sister Social History Tobacco Use Types Packs/Day Years Used Date Never Smoker Smokeless Tobacco: Never Used Alcohol Use Drinks/Week oz/Week Comments No Sex Assigned at Date Recorded Not on file Last Filed Vital Signs Vital Sign Reading Time Taken Blood Pressure 132/63 12/19/2014 8:20 AM CDT Pulse 66 12/19/2014 8:20 AM CDT Temperature - - Respiratory Rate - - Oxygen Saturation - - Inhaled Oxygen - - Concentration Weight 112.5 kg (248 lb) 12/19/2014 8:20 AM CDT Height 165.1 cm (5' 5") 12/19/2014 8:20 AM CDT Body Mass Index 41.27 12/19/2014 8:20 AM CDT Plan of Treatment Health Maintenance Due Date Last Done Comments PHYSICAL (COMPREHENSIVE) 1950 EXAM PERTUSSIS VACCINE 1954 TETANUS VACCINE 1960 BREAST CANCER SCREENING 1983 COLORECTAL CANCER 1993 SCREENING SHINGLES VACCINE 2003 OSTEOPOROSIS SCREENING 2008 PREVNAR/PNEUMOVAX (#1) 2008 INFLUENZA VACCINE 05/10/2017 Results Not on filefrom Last 3 Months
[2017-07-30 09:16] LABS: BASOPHILS # (AUTO) 0.1 10^3/uL (0.0-0.1); BASOPHILS % (AUTO) 1 % (0-10); EOSINOPHILS % (AUTO) 10 % (0-10); LYMPHOCYTES # (AUTO) 1.3 X 10^3 (1.0-4.0); LYMPHOCYTES % (AUTO) 12 % (12-44); MEAN CORPUSCULAR HEMOGLOBIN 24 PG (25-34); MEAN CORPUSCULAR HGB CONC 31 G/DL (32-36); MEAN CORPUSCULAR VOLUME 77 FL (80-99); MEAN PLATELET VOLUME 10.5 FL (7.4-10.4); MONOCYTES # (AUTO) 1.4 X 10^3 (0.0-1.0); MONOCYTES % (AUTO) 13 % (0-12); NEUTROPHILS # (AUTO) 6.6 X 10^3 (1.8-7.8); NEUTROPHILS % (AUTO) 64 % (42-75); PLATELET COUNT 301 10^3/uL (130-400); RED BLOOD COUNT 4.26 10^6/uL (4.35-5.85); RED CELL DISTRIBUTION WIDTH 20.6 % (10.0-14.5); WHITE BLOOD COUNT 10.4 10^3/uL (4.3-11.0)
--- NOTE | 2017-07-30 09:17 | ED General ---
General Chief Complaint: Altered Mental Status Stated Complaint: UTI, AMS Source of Information: Patient Exam Limitations: No Limitations History of Present Illness Time Seen by Provider: 09:00 Initial Comments Here by EMS from the skilled nursing with report of decreased responsiveness. Patient recently admitted and discharged from the hospital with a difficult course and has drug resistant organisms in the urine with history of multiple urinary tract infections. Patient arrives via EMS very sluggish and all the answers few questions. Intermittently follows some simple commands. Otherwise unable to get history from patient. Timing/Duration: 12 Hours Severity: Severe Associated Systoms: Weakness Allergies and Home Medications Allergies Coded Allergies: Penicillins (Verified Allergy, Unknown, PT HAS RECEIVED ROCEPHIN & MEROPENEM W/O ISSUE, 10/05/16) butorphanol tartrate (Verified Allergy, Unknown, 10/05/16) ciprofloxacin (Verified Allergy, Unknown, 10/05/16) ciprofloxacin HCl (Verified Allergy, Unknown, 10/05/16) hydromorphone HCl (Verified Allergy, Unknown, 10/05/16) meperidine HCl (Verified Allergy, Unknown, PT HAS RECEIVED FENTANYL IN THE PAST, 12/17/16) tetracycline (Verified Allergy, Unknown, 10/05/16) morphine (Verified Adverse Reaction, Mild, 07/26/17) makes me really "sleepy" per patient Home Medications Acetaminophen 325 Mg Tablet, 650 MG PO Q4H PRN for MILD PAIN, (Reported) TAKES 2 (325MG) TABLETS / NOT TO EXCEED 4 GRAMS/24HR Amlodipine Besylate/Benazepril 1 Each Capsule, 1 CAP PO DAILY, (Reported) Aspirin 81 Mg Tablet.dr, 81 MG PO DAILY, (Reported) Baclofen 10 Mg Tablet, 15 MG PO TID, (Reported) TAKES 1 & 1/2 OF A (10 MG) TABLET Benzonatate 100 Mg Capsule, 100 MG PO Q6H PRN for COUGH, (Reported) Betamethasone Valerate 15 Gm Cream..g., TP Q6H PRN for ITCHING, (Reported) Cranberry Fruit 450 Mg Tablet, 450 MG PO HS, (Reported) Cyclosporine 1 Each Droperette, 1 DROP OU BID, (Reported) Diphenhydramine HCl 25 Mg Tablet, 50 MG PO Q6H PRN for ITCHING, (Reported) TAKES 2 (25 MG) TABLETS Esomeprazole Magnesium 40 Mg Capsule.dr, 40 MG PO DAILY, (Reported) Fexofenadine HCl 60 Mg Tablet, 60 MG PO DAILY, (Reported) Furosemide 40 Mg Tablet, 40 MG PO DAILY, (Reported) Hydrocodone/Acetaminophen 1 Each Tablet, 1 TAB PO Q8H PRN for PAIN-MODERATE, ( Reported) Hyoscyamine Sulfate 0.125 Mg Tab.subl, 0.125 MG SL Q4H, #30 Ref 0 Prescribed by: TICO MENEZES on 07/30/17 1502 Ketoconazole 15 Gm Cream..g., TP BID, (Reported) APPLY TO BUTTOCKS AND UPPER THIGHS Lactobacillus Acidophilus 1 Each Capsule, 1 CAP PO DAILY, (Reported) Levothyroxine Sodium 175 Mcg Tablet, 175 MCG PO DAILY, (Reported) Lorazepam 1 Mg Tablet, 1 MG PO Q2HR PRN for ANXIETY, #30 Ref 0 Prescribed by: TICO MENEZES on 07/30/17 1516 Magnesium Oxide 400 Mg Tablet, 400 MG PO DAILY, (Reported) Mesalamine 1,000 Mg Supp.rect, 1 SUPP RC BID, (Reported) Mesalamine 1.2 Gm Tablet.dr, 1.2 GM PO DAILY, (Reported) Miconazole Nitrate 10 Gm Powder, TP PRN PRN for CANDIDIASIS OF SKIN AND NAILS, ( Reported) APPLY TO GROIN AND PERINEAL AREA Mineral Oil/Petrolatum,White 120 Gm Cream..g., TP PRN PRN for RASH, (Reported) Morphine Sulfate 100 Mg/5 Ml Solution, 10 MG PO Q15M PRN for AIR HUNGER, #30 x 6 dose then call hospice nurse Prescribed by: TICO MENEZES on 07/30/17 1516 Multivits,Stress Formula/Zinc 1 Each Tablet, 1 TAB PO HS, (Reported) Ondansetron HCl 4 Mg Tab, 4 MG PO Q6H PRN for NAUSEA/VOMITING-1ST LINE, ( Reported) Phenylephrine/Shk Lv/Mo/Pet,Wh 57 Gm Oint...g., RC BID, (Reported) Potassium Chloride 20 Meq Tab.er.prt, 20 MEQ PO DAILY, (Reported) Pravastatin Sodium 20 Mg Tablet, 20 MG PO DAILY, (Reported) Pregabalin 200 Mg Capsule, 200 MG PO TID, (Reported) Ranitidine HCl 150 Mg Tablet, 150 MG PO BID, (Reported) Silver 480 Ml Gel.er.ml., TP BID, (Reported) APPLY TO RIGHT FOOT Triamcinolone Acetonide 15 Gm Cream..g., TP DAILY@1800, (Reported) FOR PSORIASIS Venlafaxine HCl 75 Mg Cap.er.24h, 75 MG PO DAILY, (Reported) Constitutional: see HPI, weakness Other Unable to complete review of systems due to altered mental status and patient's clinical condition. Past Mhnpalv-Uzgkay-Jgevjm Hx Patient Social History Smoking Status: Unknown if Ever Smoked 2nd Hand Smoke Exposure: No Recent Hopitalizations: No Immunizations Up To Date Tetanus Booster (TDap): Unknown PED Vaccines UTD: No Date of Pneumonia Vaccine: Dec 09, 2011 Date of Influenza Vaccine: Aug 15, 2016 Seasonal Allergies Seasonal Allergies: No Surgeries History of Surgeries: Yes (COLOSTOMY;SUPRAPUBIC CATHETER; PORT RIGHT CHEST) Surgeries: Abdominal, Bladder Surgery, Bowel Surgery, Hysterectomy Respiratory History of Respiratory Disorde: Yes Respiratory Disorders: Asthma, Pneumonia, COPD Currently Using CPAP: No Currently Using BIPAP: No Cardiovascular History of Cardiac Disorders: Yes Cardiac Disorders: Chronic Edema/Swelling, High Cholesterol, Hypertension Neurological History of Neurological Disord: Yes (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"- GENERALIZED WEAKNESS) Endocrine History of Endocrine Disorders: Yes (MYXEDEMA COMA; OBESITY) Endocrine Disorders: Hypothyroidsim HEENT History of HEENT Disorders: No Loss of Vision: Denies Hearing Impairment: Denies Cancer History of Cancer: Yes Cancer: Breast Psychosocial History of Psychiatric Problem: Yes (PSYCHOSIS) Behavioral Health Disorders: Depression Integumentary History of Skin or Integumenta: Yes (CELLULITIS; CANDIDIASIS; ) Skin/Integumentary Disorders: Recent Skin Changes Blood Transfusions History of Blood Disorders: Yes (ANEMIA) Adverse Reaction to a Blood Tr: No Reviewed Nursing Assessment Reviewed/Agree w Nursing PMH: Yes Family Medical History Significant Family History: No Pertinent Family Hx Other History of her records due to patient's altered mental status. Family Medial History: Patient reports no known family medical history. Physical Exam-Suspected Sepsis Physical Exam Vital Signs Vital Sign - Last 12Hours 07/30/17 09:18 Temp 97.2 Pulse 74 Resp 15 B/P (MAP) 116/75 Pulse Ox 94 O2 Delivery Nasal Cannula O2 Flow Rate 3.00 Capillary Refill : General Appearance: Mild Distress (altered mental status and appears quite ill) , Obese HEENT: Pharynx Normal, Other (diabetic with movement of both eyes.) Neck: Non Tender, Supple Respiratory: Lungs Clear, Normal Breath Sounds Cardiovascular: Regular Rate, Rhythm, No Murmur Gastrointestinal: Non Tender, Soft Back: Normal Inspection, No CVA Tenderness, No Vertebral Tenderness Extremity: Normal Capillary Refill, Normal Range of Motion, Non Tender Neurologic/Psychiatric: Alert, Oriented x3 Skin: ecchymosis (lower abdominal wall), other (significant rash over the skin folds of the lower abdomen and groin. Foul-smelling urine odor noted. Patient has Mora catheter in place.) Focused Exam Evaluation Lactate Level Laboratory Tests 07/30/17 09:07: Lactic Acid Level 0.91 Lactic Acid Level Date of ETT Placement: Jul 16, 2017 Time of ETT Placement: 1814 Progress/Results/Core Measures Suspected Sepsis SIRS Temperature: Pulse: Respiratory Rate: Laboratory Tests 07/30/17 09:07: White Blood Count 10.4 Blood Pressure / Mean: Laboratory Tests 07/30/17 09:07: Lactic Acid Level 0.91 Laboratory Tests 07/30/17 09:07: Creatinine 1.67H, INR Comment 1.2, Platelet Count 301, Total Bilirubin 0.5 Results/Orders Lab Results Laboratory Tests Test 07/30/17 09:07 07/30/17 09:16 07/30/17 11:32 Range/Units White Blood Count 10.4 4.3-11.0 10^3/uL Red Blood Count 4.26 L 4.35-5.85 10^6/uL Hemoglobin 10.1 L 11.5-16.0 G/DL Hematocrit 33 L 35-52 % Mean Corpuscular Volume 77 L 80-99 FL Mean Corpuscular Hemoglobin 24 L 25-34 PG Mean Corpuscular Hemoglobin Concent 31 L 32-36 G/DL Red Cell Distribution Width 20.6 H 10.0-14.5 % Platelet Count 301 130-400 10^3/uL Mean Platelet Volume 10.5 H 7.4-10.4 FL Neutrophils (%) (Auto) 64 42-75 % Lymphocytes (%) (Auto) 12 12-44 % Monocytes (%) (Auto) 13 H 0-12 % Eosinophils (%) (Auto) 10 0-10 % Basophils (%) (Auto) 1 0-10 % Neutrophils # (Auto) 6.6 1.8-7.8 X 10^3 Lymphocytes # (Auto) 1.3 1.0-4.0 X 10^3 Monocytes # (Auto) 1.4 H 0.0-1.0 X 10^3 Eosinophils # (Auto) 1.0 H 0.0-0.3 10^3/uL Basophils # (Auto) 0.1 0.0-0.1 10^3/uL Prothrombin Time 14.8 H 12.2-14.7 SEC INR Comment 1.2 0.8-1.4 Activated Partial Thromboplast Time 30 24-35 SEC Sodium Level 142 135-145 MMOL/L Potassium Level 3.9 3.6-5.0 MMOL/L Chloride Level 101 98-107 MMOL/L Carbon Dioxide Level 31 21-32 MMOL/L Anion Gap 10 5-14 MMOL/L Blood Urea Nitrogen 22 H 7-18 MG/DL Creatinine 1.67 H 0.60-1.30 MG/DL Estimat Glomerular Filtration Rate 30 BUN/Creatinine Ratio 13 Glucose Level 122 H 70-105 MG/DL Lactic Acid Level 0.91 0.50-2.00 MMOL/L Calcium Level 7.9 L 8.5-10.1 MG/DL Total Bilirubin 0.5 0.1-1.0 MG/DL Aspartate Amino Transf (AST/SGOT) 19 5-34 U/L Alanine Aminotransferase (ALT/SGPT) 16 0-55 U/L Alkaline Phosphatase 99 40-136 U/L Total Protein 7.5 6.4-8.2 GM/DL Albumin 3.4 3.2-4.5 GM/DL Blood Gas Puncture Site LT RAD Blood Gas Patient Temperature 97.2 Arterial Blood pH 7.40 7.37-7.43 Arterial Blood Partial Pressure CO2 51 H 35-45 MMHG Arterial Blood Partial Pressure O2 85 79-93 MMHG Arterial Blood HCO3 31 H 23-27 MMOL/L Arterial Blood Total CO2 32.6 H 21.0-31.0 MMOL/L Arterial Blood Oxygen Saturation 97 94-100 % Arterial Blood Base Excess 6.1 H -2.5-2.5 MMOL/L Sadiq Test YES-POS Blood Gas Ventilator Setting NO Blood Gas Inspired Oxygen 3L Urine Color CHARLES H Urine Clarity SLIGHTLY CLOUDY Urine pH 5 5-9 Urine Specific Vergas 1.020 1.016-1.022 Urine Protein 3+ H NEGATIVE Urine Glucose (UA) NEGATIVE NEGATIVE Urine Ketones 1+ H NEGATIVE Urine Nitrite POSITIVE H NEGATIVE Urine Bilirubin 2+ H NEGATIVE Urine Urobilinogen 4 H NORMAL MG/DL Urine Leukocyte Esterase 3+ H NEGATIVE Urine RBC (Auto) 5+ H NEGATIVE Urine RBC 50-100 H /HPF Urine WBC >100 H /HPF Urine Squamous Epithelial Cells 2-5 /HPF Urine Crystals NONE /LPF Urine Amorphous Sediment FEW MAURIZIO URATES H /LPF Urine Bacteria MODERATE H /HPF Urine Casts NONE /LPF Urine Mucus NEGATIVE /LPF Urine Culture Indicated YES My Orders Orders - TICO MENEZES MD Cbc With Automated Diff (07/30/17 09:05) Comprehensive Metabolic Panel (07/30/17 09:05) Lactic Acid Analyzer (07/30/17 09:05) Blood Culture (07/30/17 09:05) Sputum Culture (07/30/17 09:05) Ua Culture If Indicated (07/30/17 09:05) Protime With Inr (07/30/17 09:05) Partial Thromboplastin Time (07/30/17 09:05) Chest 1 View, Ap/Pa Only (07/30/17 09:05) O2 (07/30/17 09:05) Saline Lock/Iv-Start (07/30/17 09:05) Vital Signs Adult Sepsis Patie Q1HR (07/30/17 09:05) Remove Rings In Anticipation O (07/30/17 09:05) Arterial Blood Gas (07/30/17 09:05) Ns Iv 1000 Ml (Sodium Chloride 0.9%) (07/30/17 09:39) Ns Iv 1000 Ml (Sodium Chloride 0.9%) (07/30/17 10:45) Urine Culture (07/30/17 11:32) Lorazepam Injection (Ativan Injection) (07/30/17 13:45) Morphine Injection (Morphine Injection (07/30/17 13:37) Medications Given in ED Current Medications Medications Dose Ordered Sig/Briana Route Start Time Stop Time Status Last Admin Dose Admin Lorazepam 1 mg ONCE ONCE IVP 07/30/17 13:45 07/30/17 13:46 DC 07/30/17 13:51 1 MG Sodium Chloride 1,000 ml @ 0 mls/hr Q0M ONCE IV 07/30/17 09:39 07/30/17 09:40 DC 07/30/17 09:52 0 MLS/HR Sodium Chloride 1,000 ml @ 0 mls/hr Q0M ONCE IV 07/30/17 10:45 07/30/17 10:46 DC 07/30/17 10:54 0 MLS/HR Vital Signs/I&O Vital Sign - Last 12Hours 07/30/17 09:18 Temp 97.2 Pulse 74 Resp 15 B/P (MAP) 116/75 Pulse Ox 94 O2 Delivery Nasal Cannula O2 Flow Rate 3.00 Capillary Refill : Progress Note : Progress Note Seen and evaluated. Workup for sepsis initiated. Second IV line initiated. Records reviewed. Patient elected for no intubation on previous visit and we will continue that status. Labs, blood cultures, lactic acid, UA, chest x-ray ordered. Normal saline 1 L bolus ordered. Monitor patient. Patient has some periods of hypotension with systolic in the upper 80s. Second liter normal saline bolus ordered. Pending UA. 1230: Blood pressure has stabilized and we are trying to get a hold of the regarding care. Review of records and discussion with Jose G Menezes, palliative care, indicates that there may be wishes for comfort care measures and/or hospice. 1320: I did discuss the case with Dr. Kahn and she indicates that palliative care would be in the patient' s best interest given her protracted poor health and declined and multiple hospital admissions for resistance urinary tract infections and sepsis and/or septic shock. Patient has indicated that she does not want to be intubated and patient was recently on comfort care. arrives at this time. 1340: I had at length discussion with the regarding the patient's critical condition and level of discomfort given her current findings. Patient is essentially unresponsive although digital out in pain occasionally. Patient has significant skin breakdown to the lower back, buttocks and the back of the legs. She also has cellulitic type infection in the groin creases and perivaginal. She still has urinary tract infection that is nitrite positive which has multiple organisms from previous cultures that are drug-resistant. She failed meropenem treatment on last hospitalization. After a long discussion with the , we both agreed that the patient would benefit from Comfort Care measures only to reduce pain and air hunger and we will pursue evaluation from hospice. was unsure of which hospice company to go with and [facility] was chosen. I did make contact with the on-call nurse for [facility]. We will evaluate to see if patient can be placed on hospice and discharged back to skilled nursing on hospice care. If this is not possible, patient will be admitted for comfort care measures only. Ativan 1 mg IV and morphine 2 mg IV ordered. Patient does have listed allergy to morphine but this is only due to hallucinations. She has had this on the last hospitalization and did not have otherwise adverse effect. The morphine will be best for air hunger and comfort. Monitor patient. 1500: I have spoken with Val at [facility]. She did over the phone informational call with the who has agreed. Paperwork has been faxed to [facility]. I will write prescription for Levsin, Roxanol and Ativan as started pack for hospice. DO NOT RESUSCITATE order signed by me and cosigned by and will accompany paperwork to [facility]. Discharged back to [facility]. Patient will go by ambulance due to bedridden state and will be hospice admission on arrival to the skilled nursing. Patient is bedridden and unable to sit. Patient has severe skin breakdown to the posterior aspect. Patient requires oxygen. Diagnostic Imaging Diagonstic Imaging: Xray Plain Films/CT/US/NM/MRI: chest Comments VIA [facility], [facility]. [place], [place] NAME: RACHELE WARD [facility] REC#: [id number] PT STATUS: REG ER : 1945 PHYSICIAN: TICO MENEZES MD ADMIT DATE: 07/30/17/ER Draft Date of Exam:07/30/17 CHEST 1 VIEW, AP/PA ONLY INDICATION: Altered mental status and decreased level of consciousness. COMPARISON: 07/26/2017 FINDINGS: Upright portable view of the chest is obtained. Heart size is enlarged but unchanged. Pulmonary venous congestion has improved and nearly normalized. Mixed alveolar and interstitial opacities seen on the prior study have largely resolved. The lungs now appear fairly clear. Right IJ Port-A-Cath is unchanged. No significant new abnormality is seen. IMPRESSION: Persistent cardiomegaly with improved/resolved findings of failure seen on the recent prior study. No new abnormality is seen. Dictated on workstation # [id number] Dict: 07/30/17 0946 Trans: 07/30/17 0953 [facility] [id number] Interpreted by: LIONEL THAYER DO Electronically signed by: Departure Impression Impression: Primary Impression: Decubital ulcer Qualified Codes: L89.303 - Pressure ulcer of unspecified buttock, stage 3 Additional Impressions: Cellulitis of left thigh Cellulitis of right thigh Urinary tract infection Qualified Codes: T83.511A - Infection and inflammatory reaction due to indwelling urethral catheter, initial encounter; N39.0 - Urinary tract infection , site not specified Sepsis Qualified Codes: A41.9 - Sepsis, unspecified organism Disposition: 01 HOME, SELF-CARE Condition: Unchanged Departure-Patient Inst. Referrals: GUS HOUSER MD (PCP/Family) Primary Care Physician Patient Instructions: Sepsis, Adult (DC), Urinary Tract Infection, Adult (DC) Add. Discharge Instructions: All discharge instructions reviewed with patient and/or family. Voiced understanding. Hospice admission at skilled nursing, [facility]. Scripts Lorazepam (Ativan) 1 Mg Tablet 1 MG PO Q2HR Y for ANXIETY, #30 TAB 0 Refills Prov: TICO MENEZES MD 07/30/17 Morphine Sulfate (Morphine Sulfate Concentrate 20mg/ml) 100 Mg/5 Ml Solution 10 MG PO Q15M Y for AIR HUNGER, #30 ML x 6 dose then call hospice nurse Prov: TICO MENEZES MD 07/30/17 Hyoscyamine Sulfate (Levsin-Sl) 0.125 Mg Tab.subl 0.125 MG SL Q4H, #30 TAB 0 Refills Prov: TICO MENEZES MD 07/30/17 TICO MENEZES MD Jul 30, 2017 09:17
[2017-07-30 09:23] LABS: ABG BASE EXCESS 6.1 MMOL/L (-2.5-2.5); ABG HCO3 31 MMOL/L (23-27); ABG OXYGEN SATURATION 97 % (94-100); ABG PCO2 51 MMHG (35-45); ABG PO2 85 MMHG (79-93); ABG TCO2 32.6 MMOL/L (21.0-31.0)
[2017-07-30 09:24] LABS: ALLENS TEST YES-POS; PATIENT TEMP 97.2
[2017-07-30 09:25] LABS: INR 1.2 (0.8-1.4); PROTHROMBIN TIME PATIENT 14.8 SEC (12.2-14.7)
[2017-07-30 09:36] LABS: ALBUMIN 3.4 GM/DL (3.2-4.5); BILIRUBIN,TOTAL 0.5 MG/DL (0.1-1.0); CALCIUM 7.9 MG/DL (8.5-10.1); CREATININE SERUM 1.67 MG/DL (0.60-1.30); POTASSIUM 3.9 MMOL/L (3.6-5.0); TOTAL PROTEIN 7.5 GM/DL (6.4-8.2)
[2017-07-30] MEDS ORDERED: NS IV 1000 ML 1,000 ML IV ONE ×2 (09:39→10:45)
--- NOTE | 2017-07-30 09:53 | Diagnostic Imaging Report ---
INDICATION: Altered mental status and decreased level of consciousness. COMPARISON: 07/26/2017 FINDINGS: Upright portable view of the chest is obtained. Heart size is enlarged but unchanged. Pulmonary venous congestion has improved and nearly normalized. Mixed alveolar and interstitial opacities seen on the prior study have largely resolved. The lungs now appear fairly clear. Right IJ Port-A-Cath is unchanged. No significant new abnormality is seen. IMPRESSION: Persistent cardiomegaly with improved/resolved findings of failure seen on the recent prior study. No new abnormality is seen. Dictated by: Dictated on workstation # [id number]
[2017-07-30 11:45] LABS: KETONES,URINE 1+ (NEGATIVE); LEUKOCYTE ESTERASE ,URINE 3+ (NEGATIVE); NITRITE,URINE POSITIVE (NEGATIVE); PH,URINE 5 (5-9); PROTEIN,URINE 3+ (NEGATIVE); UROBILINOGEN,URINE 4 MG/DL (NORMAL)
[2017-07-30 11:59] LABS: BILIRUBIN,URINE 2+ (NEGATIVE); WBC,URINE >100 /HPF
[2017-07-30] MEDS ORDERED: morphine INJ 10 MG/ML 1ML (SYR OR VIAL) IVP STA ×2 (13:37→16:26)
[2017-07-30] MEDS ORDERED: LORazepam INJ 2 MG/ML (ATIVAN) VIAL IVP ONE (13:45)
[2017-07-30] MEDS ORDERED: HYOS0.1283 SL (15:02)
[2017-07-30] MEDS ORDERED: LORA-405 PO (15:16)
[2017-07-30] MEDS ORDERED: MORP100S3 PO (15:16)
[2017-07-30 16:34] VITALS: BP 103/68
== END 2017-07-30 16:34 | disposition home or self-care (01) ==
LOC: ER 08:56 → EDUNIT# 08:56 → ER 16:34
DX: L89.319 Pressure ulcer of right buttock, unspecified stage (principal); L89.329 Pressure ulcer of left buttock, unspecified stage; L89.302 Pressure ulcer of unspecified buttock, stage 2; A41.9 Sepsis, unspecified organism; N39.0 Urinary tract infection, site not specified; L03.115 Cellulitis of right lower limb; L03.116 Cellulitis of left lower limb; J44.9 Chronic obstructive pulmonary disease, unspecified; E78.00 Pure hypercholesterolemia, unspecified; I10 Essential (primary) hypertension; G43.909 Migraine, unspecified, not intractable, without status migrainosus; E03.9 Hypothyroidism, unspecified; E66.9 Obesity, unspecified; K21.9 Gastro-esophageal reflux disease without esophagitis; F32.9 Major depressive disorder, single episode, unspecified; Z85.3 Personal history of malignant neoplasm of breast; Z87.440 Personal history of urinary (tract) infections; Z86.73 Personal history of transient ischemic attack (TIA), and cerebral infarction without residual deficits; Z87.19 Personal history of other diseases of the digestive system; Z87.01 Personal history of pneumonia (recurrent); Z79.82 Long term (current) use of aspirin; Z93.3 Colostomy status
CPT/HCPCS: 36415; 71010; 80053; 81000; 82805; 83605; 85025; 85610; 85730; 87040; 87077; 87088; 87186; 96361; 96374; 96375; 96376